=== PATIENT | female | born 1975 | race Caucasian/White ===

== ENCOUNTER → 2020-02-16 08:19 | Outpatient (BNVA) | payer OTHER, SELFPAY | PROVIDERS: PCP Internal Medicine; Visit Provider Surgery | DX: Z76.89 Persons encountering health services in other specified circumstances (principal) ==

== ENCOUNTER 2021-04-24 06:31 | Outpatient (REF) | payer OTHER, SELFPAY ==
[2021-04-24 06:43] LABS: MANUAL DIFF FLAG NO
[2021-04-24 07:21] LABS: Basophils Percent Auto 0.3 % (0-2); Eosinophils Absolute Auto 0.2 X10*3/uL (0.0-0.4); Eosinophils Percent Auto 2.2 % (0-4); Hematocrit 42.4 % (37.0-47.0); Imm Gran Abs Auto 0.04 X10*3/uL (0.00-0.03); Imm Gran Pct Auto 0.6 % (0.0-0.4); Lymphocytes Absolute Auto 2.6 X10*3/uL (1.2-4.9); Lymphocytes Percent Auto 35.1 % (20-40); Mean Corpuscular HGB Conc 30.7 g/dl (31.0-35.0); Mean Corpuscular Hemoglobin 25.6 pg (27.0-33.0); Mean Corpuscular Volume 83.6 fL (80.0-98.0); Mean Platelet Volume 10.3 fL (9.4-12.3); Monocytes Absolute Auto 0.6 X10*3/uL (0.1-1.2); Monocytes Percent Auto 8.3 % (2-11); Neutrophils Absolute Auto 3.9 x10*3/uL (2.0-8.3); Neutrophils Percent Auto 53.5 % (45-73); Platelet Count 254 X10*3/uL (160-400); Red Blood Count 5.07 X10*6/uL (4.20-5.50); Red Cell Distribution Width 15.2 % (11.0-16.0); White Blood Count 7.3 X10*3/uL (4.8-10.8)
[2021-04-24 07:53] LABS: Alanine Aminotransferase 60 U/L (0-31); Alkaline Phosphatase 124 U/L (39-117); Anion Gap 12 (12-20); Aspartate Amino Transferase 45 U/L (5-31); Bilirubin Total 0.4 mg/dL (0.0-1.0); Blood Urea Nitrogen 8 mg/dL (9-16); C Reactive Protein 3.16 mg/dL (< or = 0.50); Calcium 9.5 mg/dL (8.4-10.2); Carbon Dioxide 30 mmol/L (22-29); Chloride 101 mmol/L (96-108); Cholesterol 157 mg/dL; Estimated Glomerular Filt Rate > 60; Glucose Fasting 129 mg/dL (60-99); HDL Cholesterol 42 mg/dL; LDL Cholesterol Calculated 94 mg/dl; Potassium 4.3 mmol/L (3.3-5.1); Rheumatoid Factor < 15.0 IU/mL (<15.0); Sodium 139 mmol/L (135-145); Total Protein 7.1 g/dL (6.5-8.0); Triglycerides 109 mg/dL
[2021-04-24 07:57] LABS: Creatinine Urine 60.06 mg/dL; Microalbumin Urine < 5.0 mg/L
[2021-04-24 08:04] LABS: Erythrocyte Sedimentation Rate 33 MM/HR (0-20)
[2021-04-24 08:18] LABS: Thyroid Stimulating Hormone 1.46 uIU/mL (0.32-4.0)
[2021-04-25 13:41] LABS: Anti Nuclear Antibody Screen NEGATIVE (NEGATIVE)
[2021-04-25 15:47] LABS: Cyclic Citrullinated Peptide <16 UNITS
== END 2021-04-24 06:32 | disposition home or self-care (01) ==
LOC: HO.LAB 06:31
PROVIDERS: PCP Internal Medicine; Visit Provider Internal Medicine
DX: M79.7 Fibromyalgia (principal); E66.01 Morbid (severe) obesity due to excess calories; E11.9 Type 2 diabetes mellitus without complications
CPT/HCPCS: 36415; 80053; 80061; 82043; 84443; 85025; 85652; 86038; 86039; 86140; 86200; 86431

== ENCOUNTER 2021-04-27 08:26 | Outpatient (REF) | payer OTHER, SELFPAY ==
--- NOTE | ~2021-04-27 | MM_ITS ---
EXAMINATION: MM SCREENING DIGITAL BREAST TOMOSYNTHESIS, BILATERAL CLINICAL INFORMATION: Screening. Asymptomatic. The lifetime risk of breast cancer based on the Tyrer-Cuzick Model is 7%. COMPARISON: Mammography: 05/19/2016 (baseline) TECHNIQUE: Digital breast tomosynthesis is performed in both the craniocaudal and mediolateral oblique views along with computer-aided detection (CAD). Synthesized 2D images are generated from the tomosynthesis. Additional bilateral CC and additional bilateral MLO views are provided. FINDINGS: There are scattered areas of fibroglandular density (ACR BI-RADS breast composition Category b). The right breast parenchymal pattern is similar to prior baseline exam. Neither breast shows abnormal calcifications. The axilla and skin contours are unremarkable. Left breast has new oval nodule periareolar 8:30 o'clock position measuring approximately 1.0 x 0.6 cm with heterogeneous attenuation. Margins are generally smooth but incompletely defined. Lesion resides close to skin. Patient will be recalled for additional imaging. MM/MM tomosynthesis screening BI IMPRESSION: 1. Left: New oval heterogeneous nodule close to skin periareolar 8:30 o'clock position 10 x 6 mm. 2. Right: No mammographic evidence of malignancy. ASSESSMENT: BI-RADS 0: Incomplete - Need Additional Imaging Evaluation RECOMMENDATION: 1. Assess for dermal lesion and obtain additional views with skin marker if applicable. Otherwise Spot CC and spot LM. 2. Targeted ultrasound if warranted after review of the additional views. 3. Radiology department staff will contact the patient for additional imaging. This patient's information was entered into a reminder system with a target due date for their next mammogram.
== END 2021-04-27 08:27 | disposition home or self-care (01) ==
LOC: HO.MAMMO 08:26
PROVIDERS: PCP Internal Medicine; Visit Provider Internal Medicine
DX: Z12.31 Encounter for screening mammogram for malignant neoplasm of breast (principal)
CPT/HCPCS: 77063; 77067

== ENCOUNTER 2021-05-02 08:38 | Outpatient (REF) | payer OTHER, SELFPAY ==
--- NOTE | ~2021-05-02 | MM_ITS ---
EXAMINATION: MM DIAGNOSTIC DIGITAL BREAST TOMOSYNTHESIS, LEFT US DIAGNOSTIC ULTRASOUND BREAST, LEFT CLINICAL INFORMATION: Recall from screening for new oval nodule periareolar 8:30 left breast 10 x 6 mm with heterogeneous attenuation, incompletely defined margins. COMPARISON: Mammography: 04/27/2021, 05/19/2016 TECHNIQUE: Inspection of breast shows no dermal lesion to correspond to recent finding at screening. Digital breast tomosynthesis is performed. 2D images are generated from the tomosynthesis. The following views are obtained: Spot CC, LM. Ultrasound left breast is targeted to the periareolar breast using grayscale imaging and color Doppler without and with harmonics. FINDINGS: There are scattered areas of fibroglandular density (ACR BI-RADS breast composition Category b). The additional views confirm a oval nodule of heterogeneous attenuation approximately 9 mm in size. Margins are smooth but incompletely defined. No spiculation or associated calcification. Finding is new from prior mammography 2017. Ultrasound demonstrates a circumscribed homogeneous hyperechoic: Nodule just beneath the skin level 1:00 position 3 cm from nipple measuring 0.9 x 0.6 cm. There is no posterior acoustic enhancement or shadowing. There is some internal peripheral color flow on Doppler. Results are discussed with the patient at time of visit. The finding is suspicious for benign fat necrosis or possibly an angiomyolipoma. The lesion is new from 2017 but otherwise chronicity and stability is unknown. Patient does not recall any prior history of left breast trauma or ecchymosis. Management options discussed including short interval six-month follow-up as well as ultrasound-guided tissue sampling. Patient prefers biopsy. Results and recommendation called to medical affairs manager ([place]) for Dr. Radhames Voss on 05/02/2021. MM/MM tomosynthesis added views L IMPRESSION: New oval heterogeneous nodule anterior 11:00 left breast, suspect fat necrosis or angiomyolipoma. ASSESSMENT: BI-RADS 4: Suspicious (subcategory 4A: Low suspicion for malignancy) RECOMMENDATION: Ultrasound-guided core biopsy left breast.
== END 2021-05-02 08:39 | disposition home or self-care (01) ==
LOC: HO.MAMMO 08:38
PROVIDERS: Visit Provider Internal Medicine
DX: N63.24 Unspecified lump in the left breast, lower inner quadrant (principal); R92.8 Other abnormal and inconclusive findings on diagnostic imaging of breast
CPT/HCPCS: 76642; 77061; 77065; 99202

== ENCOUNTER 2021-05-06 07:37 | Outpatient (REF) | payer OTHER, SELFPAY ==
--- NOTE | ~2021-05-06 | US_ITS ---
PROCEDURE: US GUIDED BREAST BIOPSY, LEFT CLINICAL INFORMATION: Well-circumscribed density which on ultrasound is homogeneously hyperechoic. COMPARISON: May 02, 2021 and May 19, 2016 PROCEDURAL DETAILS: The details of the procedure, as well as the risks, benefits, and alternatives to the procedure were explained to the patient in detail and all of her questions were answered, after which written informed consent was obtained. Site and side were confirmed. Prior to the procedure, sonography revealed a homogeneously hyperechoic lesion. A time-out was performed, the lesion intended for biopsy was targeted, and the skin of the left breast was then prepped and draped in the usual sterile fashion. Using sonographic guidance, sterile technique, and 1% lidocaine without epinephrine for local anesthesia, multiple automated core biopsies were obtained through the targeted area with a 14G spring loaded Achieve core biopsy device. There was real-time confirmation of appropriate needle passage. Sampling was documented. At the completion of tissue sampling, a single open coil metallic clip was deposited at the biopsy site. There was no evidence of immediate complication. SPECIMEN: An appropriate sample was obtained. DIGITAL POST-PROCEDURE MAMMOGRAPHY: Breast density: The tissue is almost entirely fatty. BI-RADS version 5, category a. There are no new mammographic findings demonstrated. The postprocedure 2-view direct digital mammogram reveals satisfactory positioning of the biopsy clip. The patient tolerated the procedure well and, after assuring adequate hemostasis, was discharged in good condition after reviewing postbiopsy breast care instructions. Final pathology results are pending. US/US breast ndl core biopsy LT IMPRESSION: 1. No immediate complication from ultrasound-guided percutaneous biopsy left breast. 2. Ultrasound was used to localize and guide marker clip placement. 3. The 2-view direct digital postprocedure mammogram reveals satisfactory positioning of the biopsy clip. 4. Final pathology results are pending. A separate report with final recommendations will be issued once these results are made available.
--- NOTE | ~2021-05-06 | MM_ITS ---
EXAMINATION: MM DIAGNOSTIC DIGITAL BREAST TOMOSYNTHESIS, LEFT DIGITAL POST-PROCEDURE MAMMOGRAPHY: Breast density: The tissue is almost entirely fatty. BI-RADS version 5, category a. There are no new mammographic findings demonstrated. The postprocedure 2-view direct digital mammogram reveals satisfactory positioning of the biopsy clip. The patient tolerated the procedure well and, after assuring adequate hemostasis, was discharged in good condition after reviewing postbiopsy breast care instructions. Final pathology results are pending. MM/MM tomosynthesis diagnostic LT IMPRESSION: 1. No immediate complication from ultrasound-guided percutaneous biopsy left breast. 2. Ultrasound was used to localize and guide marker clip placement. 3. The 2-view direct digital postprocedure mammogram reveals satisfactory positioning of the biopsy clip. 4. Final pathology results are pending. A separate report with final recommendations will be issued once these results are made available.
[2021-05-06] MEDS: Lidocaine HCl 1 % 20 ML VIAL 10 ML SUBCUT (09:08)
== END 2021-05-06 07:38 | disposition home or self-care (01) ==
LOC: HO.MAMMO 07:37
PROVIDERS: Visit Provider Surgery
DX: R92.8 Other abnormal and inconclusive findings on diagnostic imaging of breast (principal)
CPT/HCPCS: 19083; 77061; 77065; 88305; 88341; 88342; A4648

== ENCOUNTER 2021-05-15 07:25 | Emergency (ER) | payer OTHER, SELFPAY ==
[2021-05-15 07:40] VITALS: BP 111/65; PULSE 70; RESP 18; TEMP 36.6; O2SAT 99; BMI 59.3
--- NOTE | 2021-05-15 07:58 | ED.GENADULT ---
HPI - General Adult General Chief complaint: Wound/Laceration Stated complaint: Leg abscess Time Seen by Provider: 05/15/21 07:53 Source: patient Mode of arrival: ambulatory Limitations: no limitations History of Present Illness HPI narrative: Patient comes to the emergency room complaining of an infection to the left lower extremity. Patient states that she has eczema, patient is being treated with topical triamcinolone. Patient has been scratching and now it is infected. Patient denies fever chills Related Data Home Medications Medication Instructions Recorded Confirmed albuterol sulfate 90 mcg/actuation INHALATION 04/16/21 04/16/21 aerosol inhaler (Ventolin HFA) buspirone 30 mg tablet 30 mg PO BID 04/16/21 04/16/21 clonazepam 1 mg tablet mg PO 04/16/21 04/16/21 duloxetine 60 mg capsule,delayed 120 mg PO QAM 04/16/21 04/16/21 release gabapentin 300 mg capsule mg PO 04/16/21 04/16/21 prazosin 1 mg capsule 1 mg PO BID 04/16/21 04/16/21 Previous Rx's Medication Instructions Recorded blood sugar diagnostic (FreeStyle #100 ea 04/16/21 Lite Strips) blood-glucose meter (FreeStyle #1 ea 04/16/21 Lite Meter) lancets 28 gauge (FreeStyle #100 ea 04/16/21 Lancets) metformin 500 mg tablet 500 mg PO BID 90 Days #180 tab 04/16/21 triamcinolone acetonide 0.1 % 1 appl TOPICAL DAILY 30 Days #30 g 04/16/21 topical cream cephalexin 500 mg capsule 500 mg PO BID #14 cap 05/15/21 doxycycline hyclate 100 mg capsule 100 mg PO BID #14 cap 05/15/21 Allergies Allergy/AdvReac Type Severity Reaction Status Date / Time Penicillins Allergy Mild Rash Verified 05/02/21 15:49 Shrimps Allergy Intermediate anaphylaxis Uncoded 05/02/21 15:49 Review of Systems Review of Systems: Constitutional : No Weight loss, No Fever, No Chills, No Night Sweats, No Fatigue, No Malaise ENT/Mouth : No Hearing loss, No Ear Pain, No Nasal Congestion, No Sinus Pain, No Hoarseness, No sore throat, No Rhinorrhea, No Swallowing Difficulty Eyes: No Eye Pain, No Swelling, No Redness, No Foreign Body, No Discharge, No Vision Changes Cardiovascular : No Chest Pain, No SOB, No Dyspnea on Exertion, No Orthopnea, No Edema, No Palpitations Respiratory : No Cough, No Sputum, No Wheezing, No Smoke Exposure, No Dyspnea Gastrointestinal : No Nausea, No Vomiting, No Diarrhea, No Constipation, No abdominal Pain, No Hematochezia, No Melena Genitourinary : no irregular bleeding, No Dysuria, No Urinary Frequency, No Hematuria, No Urinary Incontinence, No Urgency, No Flank Pain, No Urinary Flow Changes, No Hesitancy Musculoskeletal : No joint pain, No Myalgias, No Joint Swelling Skin : Eczema, abrasion and left lower extremity from scratching, erythematous Neuro : No Weakness, No Numbness, No Paresthesias, No Loss of Consciousness, No Dizziness, No Headache Psych : No Anxiety/Panic, No Depression, No SI/HI/AH/VH, No Social Issues, Heme/Lymph: No Bruising, No Bleeding,No Lymphadenopathy Endocrine : No Polyuria, No Polydipsia, No Temperature Intolerance [facility] Past Medical History Medical History Bilateral primary osteoarthritis of knee Eczema Fibromyalgia KEVYN (generalized anxiety disorder) Mild persistent asthma, uncomplicated Moderate recurrent major depression Morbid obesity due to excess calories MAGNOLIA on CPAP Polyarthralgia Transaminitis Type 2 diabetes mellitus, without long-term current use of insulin Surgical History History of Achilles tendon repair History of hysterectomy Family History Family History Mother Hypertension Hypothyroid Mental health disorder Father Sleep apnea Brother Substance use disorder Maternal Aunt Breast CA Maternal Aunt Skin cancer Social History Social History Housing: House Alcohol intake: never Patient Tobacco Use Status: Never used Tobacco e-Cigarette/Vaping Use: Never Used Second Hand Smoke Exposure: No service: No Current occupational status: unemployed Physical Exam ED Vital Signs: Vital Signs - 24 hr 05/15/21 07:40 Temperature 97.9 F Pulse Rate 70 Respiratory Rate 18 Blood Pressure 111/65 Pulse Oximetry 99 BMI result Body Mass Index 59.3 Const Other: Appearance: Alert. Oriented X3. No acute distress. Eyes: Pupils equal, round and reactive to light. ENT: Pharynx normal. Neck: Normal inspection. Neck supple. No lymph nodes noted. No crepitus CVS: Normal heart rate and rhythm. Pulses normal. Normal S1 and S2 Respiratory: No respiratory distress. Breath sounds normal. No Wheezing. No rales Abdomen: Soft and nontender. No rigidity. No distention. Skin: Skin warm and dry. Left lower extremity distal aspect lateral, eczema patches with respirations, erythematous, no pus drainage Extremities: No lower extremity edema. No Lacerations. No Rash Neuro: Oriented X 3. No motor deficit. No sensory deficit. Moving all extremities. No slurred speech. CN 2 through 12 grossly intact Psych: calm, cooperative, normal affect Course Course Course Narrative: I discussed with the patient she has a superimposed infection over the eczema. At this time, this time eczema her predicament not suspected Discharge Plan Discharge Clinical Impression: Cellulitis Patient Disposition: Home, Self-Care Instructions: Cellulitis (ED) Additional Instructions: Please follow-up with your primary care physician tomorrow. If you have any worsening or new symptoms, please return to the emergency room or call 911 Prescriptions: New cephalexin 500 mg capsule 500 mg PO BID Qty: 14 0RF doxycycline hyclate 100 mg capsule 100 mg PO BID Qty: 14 0RF No Action buspirone 30 mg tablet 30 mg PO BID 0RF duloxetine 60 mg capsule,delayed release(DR/EC) 120 mg PO QAM 0RF gabapentin 300 mg capsule PO 0RF prazosin 1 mg capsule 1 mg PO BID 0RF clonazepam 1 mg tablet PO 0RF albuterol sulfate [Ventolin HFA] 90 mcg/actuation HFA aerosol inhaler inhalation 0RF metformin 500 mg tablet 500 mg PO BID 90 Days Qty: 180 1RF (DME) blood-glucose meter [FreeStyle Lite Meter] Kit See Rx Instructions .Route Qty: 1 0RF Rx Instructions: As directed (DME) FreeStyle Lite Strips Strip See Rx Instructions .Route Qty: 100 3RF Rx Instructions: Use 1 test strip once a day (DME) lancets [FreeStyle Lancets] 28 gauge misc See Rx Instructions .Route Qty: 100 3RF Rx Instructions: Use 1 lancet once a day triamcinolone acetonide 0.1 % cream 1 appl topical DAILY 30 Days Qty: 30 1RF
== END 2021-05-15 08:14 | disposition home or self-care (01) ==
PROVIDERS: Emergency Provider Emergency Medicine; PCP Internal Medicine
DX: L03.116 Cellulitis of left lower limb (principal); L30.9 Dermatitis, unspecified; E11.9 Type 2 diabetes mellitus without complications; J45.909 Unspecified asthma, uncomplicated; Z79.899 Other long term (current) drug therapy
CPT/HCPCS: 99283

== ENCOUNTER → 2021-05-16 10:02 | Outpatient (BNVA) | payer OTHER, SELFPAY | PROVIDERS: PCP Internal Medicine; Referring Provider Internal Medicine; Visit Provider Physician Assistant | DX: E66.01 Morbid (severe) obesity due to excess calories (principal); Z68.43 Body mass index [BMI] 50.0-59.9, adult; E11.9 Type 2 diabetes mellitus without complications; F41.1 Generalized anxiety disorder; G47.33 Obstructive sleep apnea (adult) (pediatric); R74.01 Elevation of levels of liver transaminase levels; M79.7 Fibromyalgia; Z99.89 Dependence on other enabling machines and devices; Z71.3 Dietary counseling and surveillance | CPT/HCPCS: 99202 ==

== ENCOUNTER 2021-06-06 06:09 | Outpatient (REF) | payer OTHER, SELFPAY ==
--- NOTE | ~2021-06-06 | XR_ITS ---
EXAMINATION: XR CHEST CLINICAL INFORMATION: Elevation of liver transaminase levels COMPARISON: None TECHNIQUE: 2 views of the chest were obtained. FINDINGS: The lungs are well-expanded and clear of acute process. Heart size and pulmonary vascularity is normal. There is mild spondylosis dorsal spine. No lytic process. XR/XR chest 2V IMPRESSION: Unremarkable chest exam.
--- NOTE | 2021-06-06 06:41 | ECG_ITS ---
Test Reason : E66.01 Blood Pressure : / mmHG Vent. Rate : 065 BPM Atrial Rate : 065 BPM P-R Int : 172 ms QRS Dur : 090 ms QT Int : 370 ms P-R-T Axes : 028 -06 006 degrees QTc Int : 384 ms Normal sinus rhythm Normal ECG No previous ECGs available Referred By: Stephanie Gonzalez Electronically Signed By:MIMI BOSTON MD
[2021-06-06 08:26] LABS: Insulin 27 uU/mL (2-29); Vitamin D 25-OH Total 29.2 ng/mL (>30)
[2021-06-06 08:48] LABS: Folate 10.2 ng/mL (> or = 4.0); Vitamin B12 818 pg/mL (200-900)
[2021-06-07 12:26] LABS: PTHI 72 pg/mL (16-77)
[2021-06-11 17:01] LABS: Zinc 78 mcg/dL (60-130)
[2021-06-12 00:01] LABS: Vitamin A 28 mcg/dL (38-98)
[2021-06-12 14:11] LABS: Vitamin B1 10 nmol/L (8-30)
== END 2021-06-06 06:10 | disposition home or self-care (01) ==
LOC: HO.LAB 06:09
PROVIDERS: PCP Internal Medicine; Visit Provider Physician Assistant
DX: E11.9 Type 2 diabetes mellitus without complications (principal); E66.01 Morbid (severe) obesity due to excess calories; R74.01 Elevation of levels of liver transaminase levels
CPT/HCPCS: 36415; 71046; 82306; 82607; 82746; 83525; 83970; 84425; 84590; 84630; 93005

== ENCOUNTER 2021-06-07 13:53 | Outpatient (REF) | payer OTHER, SELFPAY ==
[2021-06-11 14:59] LABS: H Pylori Breath Test Negative (Negative)
== END 2021-06-07 13:54 | disposition home or self-care (01) ==
LOC: CF 13:53
PROVIDERS: PCP Internal Medicine; Referring Provider Internal Medicine; Visit Provider Physician Assistant
DX: E66.01 Morbid (severe) obesity due to excess calories (principal); Z68.43 Body mass index [BMI] 50.0-59.9, adult; E11.9 Type 2 diabetes mellitus without complications; R74.01 Elevation of levels of liver transaminase levels; Z71.3 Dietary counseling and surveillance
CPT/HCPCS: 36415; 83013; 99211; 99212

== ENCOUNTER 2022-05-03 08:47 | Outpatient (REF) | payer OTHER, SELFPAY ==
--- NOTE | ~2022-05-03 | MM_ITS ---
EXAMINATION: MM SCREENING DIGITAL BREAST TOMOSYNTHESIS, BILATERAL CLINICAL INFORMATION: Screening. Asymptomatic. Benign ultrasound-guided left breast biopsy 05/06/2021 (angiomyolipoma; background benign breast tissue; no malignancy identified). The lifetime risk of breast cancer based on the Tyrer-Cuzick Model is 10%. COMPARISON: Multiple prior breast imaging exams, including most recent mammography 05/06/2021. TECHNIQUE: Digital breast tomosynthesis is performed in both the craniocaudal and mediolateral oblique views along with computer-aided detection (CAD). Synthesized 2D images are generated from the tomosynthesis. Additional bilateral MLO views are provided. FINDINGS: There are scattered areas of fibroglandular density (ACR BI-RADS breast composition Category b). Breast tissue composition borders on predominantly fatty. Background stromal and fibroglandular densities are stable. No significant mass, developing density or architectural abnormality. There is a biopsy clip marker again seen overlying the periareolar 9:00 left breast. No abnormal calcifications. The axilla and skin contours are unremarkable. No significant changes. MM/MM tomosynthesis screening BI IMPRESSION: No mammographic evidence of malignancy. ASSESSMENT: BI-RADS 1: Negative RECOMMENDATION: Routine annual mammography screening. This patient's information was entered into a reminder system with a target due date for their next mammogram.
== END 2022-05-03 08:48 | disposition home or self-care (01) ==
LOC: HO.MAMMO 08:47
PROVIDERS: PCP Internal Medicine; Visit Provider Internal Medicine
DX: Z12.31 Encounter for screening mammogram for malignant neoplasm of breast (principal)
CPT/HCPCS: 77063; 77067

== ENCOUNTER 2022-07-04 15:13 | Inpatient (IN) | payer OTHER, SELFPAY ==
--- NOTE | 2022-07-04 15:35 | ED_ITS ---
HPI - General Adult General Chief complaint: General Medical Stated complaint: Legs are swollen, infection?, burning sensation Time Seen by Provider: 07/04/22 17:03 Source: patient Mode of arrival: ambulatory Limitations: no limitations History of Present Illness HPI narrative: This is a 46-year-old female history of obesity, fibromyalgia, eczema, diabetes, obstructive sleep apnea presenting to the emergency department for concerns of painful rash to groin region, abdominal folds, rash started about 6 days ago and has been progressively worsening ever. Patient reports she was seen 4 days ago at urgent care and was left on 100 mg of fluconazole day for 7 days currently on day 4 and was also prescribed nystatin powder patient tells me despite all this she has been getting worse, patient reports it is a burning rash, very uncomfortable. Also reporting lower extremity swelling. She denies fevers, chills, chest pain, shortness of breath, nausea, vomiting, abdominal pain, headache, vision changes, dizziness. Related Data Home Medications Medication Instructions Recorded Confirmed albuterol sulfate 90 mcg/actuation inhalation 04/16/21 04/14/22 aerosol inhaler (Ventolin HFA) Previous Rx's Medication Instructions Recorded blood sugar diagnostic (FreeStyle #100 ea 04/16/21 Lite Strips) blood-glucose meter (FreeStyle #1 ea 04/16/21 Lite Meter kit) lancets 28 gauge (FreeStyle #100 ea 04/16/21 Lancets) cholecalciferol (vitamin D3) 25 25 mcg PO DAILY #30 caps 06/06/21 mcg (1,000 unit) capsule albuterol sulfate 90 mcg/actuation 2 puff inhalation Q6H PRN 02/04/22 aerosol inhaler shortness of breath or wheezing #6.7 grams Ventolin HFA 90 mcg/actuation 2 puff inhalation Q6H PRN 04/14/22 aerosol inhaler (albuterol sulfate) shortness of breath or wheezing 30 days #8 grams fluticasone propionate 50 1 spray intranasal BID 30 days #16 04/14/22 mcg/actuation nasal grams spray,suspension (Flonase Allergy Relief) naproxen 500 mg tablet 500 mg PO BID PRN pain 30 days #60 04/14/22 tabs metformin 500 mg tablet 500 mg PO BID 90 days #180 tabs 06/19/22 fluconazole 100 mg tablet 100 mg PO DAILY 7 days #7 tabs 07/01/22 (Diflucan) nystatin 100,000 unit/gram topical 1 appl topical DAILY #60 grams 07/01/22 powder Allergies Allergy/AdvReac Type Severity Reaction Status Date / Time Penicillins Allergy Mild Rash Verified 07/04/22 15:39 Shrimps Allergy Intermediate anaphylaxis Uncoded 04/14/22 08:41 Review of Systems Review of Systems: Constitutional : No Weight loss, No Fever, No Chills, No Fatigue, No Malaise ENT/Mouth : No sore throat, No Rhinorrhea Eyes: No Eye Pain, No Swelling, No Redness Cardiovascular : No Chest Pain, No SOB, No Dyspnea on Exertion, No Orthopnea, + Edema, No Palpitations Respiratory : No Cough, No Sputum, No Wheezing Gastrointestinal : No Nausea, No Vomiting, No Diarrhea, No Constipation, No abdominal Pain, No Hematochezia, No Melena Genitourinary : No Dysuria, No Urinary Frequency, No Hematuria, Musculoskeletal : No joint pain, No Myalgias, No Joint Swelling Skin : No Skin Lesions, + rash Neuro : No Weakness, No Numbness, No Dizziness, No Headache Psych : No Anxiety/Panic, No Depression All other systems reviewed and are negative Yes all other systems are reviewed and are negative [facility] Past Medical History Attestation statement: The following information was validated with the patient. Source: old records reviewed and nursing notes reviewed Medical History Bilateral primary osteoarthritis of knee Eczema Fibromyalgia KEVYN (generalized anxiety disorder) Mild persistent asthma, uncomplicated Moderate recurrent major depression Morbid obesity due to excess calories MAGNOLIA on CPAP Polyarthralgia Transaminitis Type 2 diabetes mellitus, without long-term current use of insulin Surgical History History of Achilles tendon repair History of hysterectomy Family History Family History Mother Hypertension Hypothyroid Mental health disorder Father Sleep apnea Brother Substance use disorder Maternal Aunt Breast CA Maternal Aunt Skin cancer Son No problems noted. Daughter Headache Daughter Hypertension Social History Social History Housing: House Alcohol intake: never Patient Tobacco Use Status: Never used Tobacco Smoked in Last 30 Days: No e-Cigarette/Vaping Use: Never Used Second Hand Smoke Exposure: No Use of substances other than those prescribed or required for medical reasons: No Advance Directives: No Advance Directives Information Provided: Yes Patient : No service: No Current occupational status: unemployed Cognitive needs: No Hearing needs: No Vision needs: No Physical Exam ED Vital Signs: Vital Signs - 24 hr 07/04/22 15:36 07/04/22 19:57 Temperature 98 F 97.5 F Pulse Rate 97 84 Respiratory Rate 18 16 Blood Pressure 137/62 119/60 Pulse Oximetry 98 97 Oxygen Delivery Method Room Air Room Air BMI result Body Mass Index 118.4 Vital signs stable Appearance: Alert.? Oriented X3.? No acute distress.? Head: Normocephalic, atraumatic, no step-offs or deformities Eyes: Pupils equal, round and reactive to light.? ENT: Pharynx normal.? Neck: Normal inspection.? Neck supple.? CVS: Normal heart rate and rhythm.? Pulses normal.? Respiratory: No respiratory distress.? Breath sounds normal.? Abdomen: Soft and nontender.? Skin: Skin warm and dry.? Normal skin color.? Normal skin turgor.?+ rash to skin folds in lower abdomen bilateral groin. Please refer to picture below. Rash is warm, erythematous, uncomfortable to palpation. Extremities: No lower extremity edema.? No calf ttp. 5/5 strength to bilateral upper and lower extremities Back: No midline tenderness, no C-spine tenderness, full range of motion, no CVA tenderness bilaterally Neuro: Oriented X 3.? No motor deficit.? No sensory deficit. CN 2-12 intact Course Course Course Narrative: RME performed by Jayde Adamson PA-C. Patient is a 46 year old assigned female at presenting to the emergency department with a possible infection. Labs ordered. Patient placed back in the waiting room pending room availability and results. Reevaluation(s) Reevaluation #1: CBC appears to be within normal limits. Normal ESR. Chemistry with no acute electrolyte abnormalities requiring intervention. CRP markedly elevated 2.63 however this appears to be better than previous CRP is. I do not suspect this is an acute finding. Normal lactic acid. UA pending. Due to severity of suspected fungal rash have ordered fluconazole IV., also ordered ceftriaxone to cover for possible cellulitis. Time: 18:51 Reevaluation #2: Discuss this case with hospitalist who agrees that patient likely has a fungal rash and cellulitis. Will admit for IV antibiotics as well as IV fluconazole. Patient will likely benefit from being seen by infectious disease team as well. Time: 21:11 Medications Administered Discontinued Medications Generic Name Dose Route Start Last Admin Trade Name Freq PRN Reason Stop Dose Admin Ceftriaxone Sodium 1 gm/ 50 mls @ 100 mls/hr 07/04/22 17:43 07/04/22 19:21 Sodium Chloride IV 07/04/22 18:12 Infused ONCE ONE Infusion Medical Decision Making Medical Decision Making [facility] Narrative: 46-year-old female presents with rash to skin folds of abdomen, bilateral groin and also reports lower extremity swelling. This has been going on for the past 6 days. Currently on fluconazole nystatin, despite this rash worsening Physical exam significant for significant area of erythema, warmth with discrete margins. Please refer to image in physical exam portion of chart. Concerns for cellulitis with intertrigo. Unlikely necrotizing infection, [place]. Plan labs, urine, blood cultures and a lactic Differential Diagnosis Differential Diagnoses: The differential diagnosis associated with the presentation includes Concerns for cellulitis with intertrigo. Unlikely necrotizing infection, [place]. Admission/Observation Consideration of admission/observation: Escalation of care including admis stephanie/observation considered Likely Lab Data [facility] Lab Attestation statement: I reviewed the patient's lab results. 07/04/22 16:03 07/04/22 16:01 Labs: Lab Results 07/04/22 07/04/22 07/04/22 Range/Units 15:59 16:00 16:01 WBC (4.8-10.8) X10*3/uL RBC (4.20-5.50) X10*6/uL Hgb (12.0-16.0) g/dl Hct (37.0-47.0) % MCV (80.0-98.0) fL MCH (27.0-33.0) pg MCHC (31.0-35.0) g/dl RDW (11.0-16.0) % Plt Count (160-400) X10*3/uL MPV (9.4-12.3) fL Immature Gran % (Auto) (0.0-0.4) % Neut % (Auto) (45-73) % Lymph % (Auto) (20-40) % [place] % (Auto) (2-11) % Eos % (Auto) (0-4) % Baso % (Auto) (0-2) % Lymph # (Auto) (1.2-4.9) X10*3/uL [place] # (Auto) (0.1-1.2) X10*3/uL Eos # (Auto) (0.0-0.4) X10*3/uL Baso # (Auto) (0.0-0.2) X10*3/uL Abs Immat Gran (auto) (0.00-0.03) X10*3/uL Absolute Neuts (auto) (2.0-8.3) x10*3/uL Absolute Nucleated RBC (0.0-0.012) X10*3/uL Nucleated RBC % (auto) (0.0-0.2) /100WBC ESR 19 (0-20) MM/HR Sodium 143 (135-145) mmol/L Potassium 4.1 (3.3-5.1) mmol/L Chloride 105 (96-108) mmol/L Carbon Dioxide 31 H (22-29) mmol/L Anion Gap 11 L (12-20) BUN 9 (9-16) mg/dL Creatinine 0.64 (0.5-1.4) mg/dL Estim Creat Clear Calc 298.7 Estimated GFR > 60 Random Glucose 85 (60-115) mg/dL Lactic Acid 1.4 (0.5-2.0) mmol/L Calcium 9.3 (8.4-10.2) mg/dL Magnesium 1.9 (1.6-2.6) mg/dL Total Bilirubin 0.3 (0.0-1.0) mg/dL AST 28 (5-31) U/L ALT 35 H (0-31) U/L Alkaline Phosphatase 125 H (39-117) U/L Total Creatine Kinase 95 (26-140) U/L C-Reactive Protein 2.63 H (< or = 0.50) mg/dL B-Natriuretic Peptide (<100) pg/mL Total Protein 6.8 (6.5-8.0) g/dL Albumin 4.1 (3.5-5.0) g/dL 07/04/22 07/04/22 Range/Units 16:03 16:03 WBC 10.3 (4.8-10.8) X10*3/uL RBC 5.31 (4.20-5.50) X10*6/uL Hgb 13.5 (12.0-16.0) g/dl Hct 43.4 (37.0-47.0) % MCV 81.7 (80.0-98.0) fL MCH 25.4 L (27.0-33.0) pg MCHC 31.1 (31.0-35.0) g/dl RDW 15.3 (11.0-16.0) % Plt Count 252 (160-400) X10*3/uL MPV 10.9 (9.4-12.3) fL Immature Gran % (Auto) 0.4 (0.0-0.4) % Neut % (Auto) 62.9 (45-73) % Lymph % (Auto) 21.1 (20-40) % [place] % (Auto) 7.5 (2-11) % Eos % (Auto) 7.9 H (0-4) % Baso % (Auto) 0.2 (0-2) % Lymph # (Auto) 2.2 (1.2-4.9) X10*3/uL [place] # (Auto) 0.8 (0.1-1.2) X10*3/uL Eos # (Auto) 0.8 H (0.0-0.4) X10*3/uL Baso # (Auto) 0.0 (0.0-0.2) X10*3/uL Abs Immat Gran (auto) 0.04 H (0.00-0.03) X10*3/uL Absolute Neuts (auto) 6.5 (2.0-8.3) x10*3/uL Absolute Nucleated RBC 0.000 (0.0-0.012) X10*3/uL Nucleated RBC % (auto) 0.0 (0.0-0.2) /100WBC ESR (0-20) MM/HR Sodium (135-145) mmol/L Potassium (3.3-5.1) mmol/L Chloride (96-108) mmol/L Carbon Dioxide (22-29) mmol/L Anion Gap (12-20) BUN (9-16) mg/dL Creatinine (0.5-1.4) mg/dL Estim Creat Clear Calc Estimated GFR Random Glucose (60-115) mg/dL Lactic Acid (0.5-2.0) mmol/L Calcium (8.4-10.2) mg/dL Magnesium (1.6-2.6) mg/dL Total Bilirubin (0.0-1.0) mg/dL AST (5-31) U/L ALT (0-31) U/L Alkaline Phosphatase (39-117) U/L Total Creatine Kinase (26-140) U/L C-Reactive Protein (< or = 0.50) mg/dL B-Natriuretic Peptide < 10 (<100) pg/mL Total Protein (6.5-8.0) g/dL Albumin (3.5-5.0) g/dL Core Measures AMI core measures followed: Yes Measure exclusions: not indicated Critical Care Time Critical Care Time Critical Care Time: No Discharge Plan Discharge Clinical Impression: Intertrigo, Cellulitis Patient Disposition: Admitted As Inpatient Prescriptions: No Action cholecalciferol (vitamin D3) 25 mcg (1,000 unit) capsule 25 mcg PO DAILY Qty: 30 6RF metformin 500 mg tablet 500 mg PO BID 90 Days Qty: 180 1RF albuterol sulfate [Ventolin HFA] 90 mcg/actuation HFA aerosol inhaler inhalation (DME) blood-glucose meter [FreeStyle Lite Meter] Kit See Rx Instructions .Route Qty: 1 0RF Rx Instructions: As directed (DME) FreeStyle Lite Strips Strip See Rx Instructions .Route Qty: 100 3RF Rx Instructions: Use 1 test strip once a day (DME) lancets [FreeStyle Lancets] 28 gauge misc See Rx Instructions .Route Qty: 100 3RF Rx Instructions: Use 1 lancet once a day fluconazole [Diflucan] 100 mg tablet 100 mg PO DAILY 7 Days Qty: 7 0RF nystatin 100,000 unit/gram powder 1 appl topical DAILY Qty: 60 0RF albuterol sulfate 90 mcg/actuation HFA aerosol inhaler 2 puff inhalation Q6H PRN (Reason: shortness of breath or wheezing) Qty: 6.7 0RF albuterol sulfate [Ventolin HFA] 90 mcg/actuation HFA aerosol inhaler 2 puff inhalation Q6H PRN (Reason: shortness of breath or wheezing) 30 Days Qty: 8 1RF naproxen 500 mg tablet 500 mg PO BID PRN (Reason: pain) 30 Days Qty: 60 1RF fluticasone propionate [Flonase Allergy Relief] 50 mcg/actuation spray,suspension 1 spray intranasal BID 30 Days Qty: 16 0RF Rx Instructions: administer into each nostril
[2022-07-04 15:36] VITALS: BP 137/62; PULSE 97; RESP 18; TEMP 36.6; O2SAT 98; BMI 118.4
[2022-07-04 16:10] LABS: MANUAL DIFF FLAG NO
[2022-07-04 16:14] LABS: Basophils Percent Auto 0.2 % (0-2); Eosinophils Absolute Auto 0.8 X10*3/uL (0.0-0.4); Eosinophils Percent Auto 7.9 % (0-4); Hematocrit 43.4 % (37.0-47.0); Hemoglobin 13.5 g/dl (12.0-16.0); Imm Gran Abs Auto 0.04 X10*3/uL (0.00-0.03); Imm Gran Pct Auto 0.4 % (0.0-0.4); Lymphocytes Absolute Auto 2.2 X10*3/uL (1.2-4.9); Lymphocytes Percent Auto 21.1 % (20-40); Mean Corpuscular HGB Conc 31.1 g/dl (31.0-35.0); Mean Corpuscular Hemoglobin 25.4 pg (27.0-33.0); Mean Corpuscular Volume 81.7 fL (80.0-98.0); Mean Platelet Volume 10.9 fL (9.4-12.3); Monocytes Absolute Auto 0.8 X10*3/uL (0.1-1.2); Monocytes Percent Auto 7.5 % (2-11); Neutrophils Absolute Auto 6.5 x10*3/uL (2.0-8.3); Neutrophils Percent Auto 62.9 % (45-73); Platelet Count 252 X10*3/uL (160-400); Red Blood Count 5.31 X10*6/uL (4.20-5.50); Red Cell Distribution Width 15.3 % (11.0-16.0); White Blood Count 10.3 X10*3/uL (4.8-10.8)
[2022-07-04 16:21] LABS: Lactic Acid 1.4 mmol/L (0.5-2.0)
[2022-07-04 16:28] LABS: Alanine Aminotransferase 35 U/L (0-31); Albumin Level 4.1 g/dL (3.5-5.0); Alkaline Phosphatase 125 U/L (39-117); Anion Gap 11 (12-20); Aspartate Amino Transferase 28 U/L (5-31); Bilirubin Total 0.3 mg/dL (0.0-1.0); Blood Urea Nitrogen 9 mg/dL (9-16); C Reactive Protein 2.63 mg/dL (< or = 0.50); Calcium 9.3 mg/dL (8.4-10.2); Carbon Dioxide 31 mmol/L (22-29); Chloride 105 mmol/L (96-108); Creatinine Clr Calc Pharmacy 298.7; Estimated Glomerular Filt Rate > 60; Glucose Random 85 mg/dL (60-115); Magnesium 1.9 mg/dL (1.6-2.6); Potassium 4.1 mmol/L (3.3-5.1); Sodium 143 mmol/L (135-145); Total Protein 6.8 g/dL (6.5-8.0)
[2022-07-04 16:49] LABS: Erythrocyte Sedimentation Rate 19 MM/HR (0-20)
[2022-07-04] MEDS: cefTRIAXone sodium 1 GM in 0.9 % Sodium Chloride 50 ML IV (18:20)
--- NOTE | 2022-07-04 19:28 | ECG_ITS ---
Test Reason : GENERAL MEDICAL Blood Pressure : / mmHG Vent. Rate : 085 BPM Atrial Rate : 085 BPM P-R Int : 178 ms QRS Dur : 084 ms QT Int : 378 ms P-R-T Axes : 042 -02 010 degrees QTc Int : 449 ms Normal sinus rhythm Normal ECG When compared with ECG of 06-JUN-2021 06:42, QT has lengthened Referred By: Herb Feliz Electronically Signed By:Lee Haro
[2022-07-04 19:57] VITALS: BP 119/60; PULSE 84; RESP 16; TEMP 36.4; O2SAT 97
[2022-07-04 20:31] LABS: B Type Natriuretic Peptide < 10 pg/mL (<100)
[2022-07-04] MEDS: Fluconazole in NaCl,Iso-Osm 100 MG in Container,Empty 0 ML 50 MG IV (21:20)
--- NOTE | 2022-07-04 21:30 | PM.IMHP ---
History of Present Illness Date of Service: 07/04/22 Attending physician on admission: Jatinder Miller Chief Complaint: Abdominal/groin rash Pt is a 46-year-old female with a PMH significant for rru-iuapyuh-kelikmhcm diabetes type 2, osteoarthritis, MAGNOLIA on CPAP, depression/anxiety with panic attacks, and morbid obesity?who presents to the ED with?and erythematous, rash to the abdomen and groin has failed outpatient therapy. Patient states that on Thursday she suddenly developed a red rash on her abdomen and pannus, in her abdominal skin folds, and on her groin. Patient first treated rash with nystatin powder bought at local pharmacy with little relief. By Thursday rash was warm, painful, itchy, and spreading further. She then went to an urgent care and was fluconazole 1 mg q.d. for 7 days. Currently on day 4 of fluconazole and rash has continued to progressively get worse. Patient says she has been experiencing chills, but no measurable fever, however patient chronically on naproxen. Denies nausea, vomiting, abdominal pain. No chest pain/pressure, palpitations. Denies shortness of breath. Patient has chronic lower leg edema that she says has not worsened recently. Patient states rash is very pruritic, rates her pain as a 7/10, and describes it as burning in nature. In the ED patient was afebrile and hemodynamically stable. Labs were significant for no leukocytosis, C-reactive protein of 2.63, mildly elevated ALT of 35 and alk-phos of 125. Renal function normal. Electrolytes WNL. UA results pending. EKG demonstrated normal sinus rhythm with nonspecific T-wave inversions and no evidence of ST elevations or depressions. Pt was treated with ceftriaxone and fluconazole IV. Pt will be admitted to the hospital for treatment further evaluation of abdominal and groin rash that has failed outpatient therapy. Review of Systems Review of Systems: Painful, pruritic rash to abdomen and groin Chills, no fever Denies nausea, vomiting, diarrhea, abdominal pain No chest pain/pressure, palpitations Denies shortness of breath Yes all other systems are reviewed and are negative [facility] Medical History Bilateral primary osteoarthritis of knee Eczema Fibromyalgia KEVYN (generalized anxiety disorder) Mild persistent asthma, uncomplicated Moderate recurrent major depression Morbid obesity due to excess calories MAGNOLIA on CPAP Polyarthralgia Transaminitis Type 2 diabetes mellitus, without long-term current use of insulin Family History Mother Hypertension Hypothyroid Mental health disorder Father Sleep apnea Brother Substance use disorder Maternal Aunt Breast CA Maternal Aunt Skin cancer Son No problems noted. Daughter Headache Daughter Hypertension Surgical History History of Achilles tendon repair History of hysterectomy Social History Housing: House Alcohol intake: never Patient Tobacco Use Status: Never used Tobacco Smoked in Last 30 Days: No e-Cigarette/Vaping Use: Never Used Second Hand Smoke Exposure: No Use of substances other than those prescribed or required for medical reasons: No Advance Directives: No Advance Directives Information Provided: Yes Patient : No service: No Current occupational status: unemployed Cognitive needs: No Hearing needs: No Vision needs: No Meds Allergies Allergy/AdvReac Type Severity Reaction Status Date / Time Penicillins Allergy Mild Rash Verified 07/04/22 15:39 Shrimps Allergy Intermediate anaphylaxis Uncoded 04/14/22 08:41 Active Medications: Current Medications Fluconazole 100 mg/ IV (Miscellaneous Supplies) 50 mls @ 50 mls/hr IV Q24H SU Last Admin: 07/04/22 21:20 Dose: 50 mls/hr Home Medications Medication Instructions Recorded Confirmed Last Taken Type buspirone 30 mg tablet 30 mg PO BID PRN Anxiety 07/04/22 07/04/22 Unknown History metformin 500 mg tablet 500 mg PO BIDAC 07/04/22 07/04/22 07/04/22 History multivitamin 1 tab PO DAILY 07/04/22 07/04/22 07/04/22 History Physical Exam Vital Signs and Narrative: Vital Signs: Last Vital Signs Temp 97.5 F 07/04/22 19:57 Pulse 84 07/04/22 19:57 Resp 16 07/04/22 19:57 BP 119/60 07/04/22 19:57 Pulse Ox 97 07/04/22 19:57 O2 Del Method Room Air 07/04/22 19:57 BMI result Body Mass Index 118.4 Constitutional: Alert, in no acute distress. Mental Status: Oriented to person, place and time. Eyes: Pupils are equal, round, and reactive to light. Ear, Nose, and Throat: Oropharynx clear, mucous membranes moist. Ears and nose without deformities. Trachea midline. Respiratory: Clear to auscultation bilaterally. No wheezing, rales, or rhonchi. Cardiovascular: S1, S2 regular. No murmurs, rubs, or gallops. Gastrointestinal: Abdomen soft, non-tender, non-distended. Normal bowel sounds. Neurologic: Cranial nerves II-XII are grossly intact bilaterally. No focal neurological deficits. Moves all extremities spontaneously. Skin: Extensive area of erythema on on abdomen and pannus, in skin folds, on inner thighs, and groin. Erythema tender and warm to the touch with swelling, particularly to the groin. No satellite lesions noted. Non malodorous. See picture below Musculoskeletal: No cyanosis or clubbing. Extremities: Bilateral chronic edema. Psychiatric: Normal mood and affect. Results Labs 07/04/22 16:03 07/04/22 16:01 Labs: Laboratory Results - last 24 hr 07/04/22 07/04/22 07/04/22 15:59 16:00 16:01 MCV MCH MCHC RDW Plt Count MPV Immature Gran % (Auto) Neut % (Auto) Lymph % (Auto) [place] % (Auto) Eos % (Auto) Baso % (Auto) Lymph # (Auto) [place] # (Auto) Eos # (Auto) Baso # (Auto) Abs Immat Gran (auto) Absolute Neuts (auto) Absolute Nucleated RBC Nucleated RBC % (auto) ESR 19 Anion Gap 11 L Estim Creat Clear Calc 298.7 Estimated GFR > 60 Random Glucose 85 Lactic Acid 1.4 Calcium 9.3 Magnesium 1.9 Total Bilirubin 0.3 AST 28 ALT 35 H Alkaline Phosphatase 125 H Total Creatine Kinase 95 C-Reactive Protein 2.63 H B-Natriuretic Peptide Total Protein 6.8 Albumin 4.1 07/04/22 07/04/22 16:03 16:03 MCV 81.7 MCH 25.4 L MCHC 31.1 RDW 15.3 Plt Count 252 MPV 10.9 Immature Gran % (Auto) 0.4 Neut % (Auto) 62.9 Lymph % (Auto) 21.1 [place] % (Auto) 7.5 Eos % (Auto) 7.9 H Baso % (Auto) 0.2 Lymph # (Auto) 2.2 [place] # (Auto) 0.8 Eos # (Auto) 0.8 H Baso # (Auto) 0.0 Abs Immat Gran (auto) 0.04 H Absolute Neuts (auto) 6.5 Absolute Nucleated RBC 0.000 Nucleated RBC % (auto) 0.0 ESR Anion Gap Estim Creat Clear Calc Estimated GFR Random Glucose Lactic Acid Calcium Magnesium Total Bilirubin AST ALT Alkaline Phosphatase Total Creatine Kinase C-Reactive Protein B-Natriuretic Peptide < 10 Total Protein Albumin Assessment and Plan (1) Cellulitis: Status: Acute (2) Intertrigo: Status: Acute Plan Pt is a 46-year-old female with a PMH significant for vev-ixzyejw-avbqywywq diabetes type 2, osteoarthritis, MAGNOLIA on CPAP, depression/anxiety with panic attacks, and morbid obesity?who presents to the ED with?and erythematous, rash to the abdomen and groin has failed outpatient therapy. Pt will be admitted to the hospital for treatment further evaluation of abdominal and groin rash that has failed outpatient therapy. Rash on abdomen and groin Pt with extensive rash of abdomen and groin that is erythematous, tender, warm, quickly spreading, sudden onset, and with swelling Failed outpatient therapy on fluconazole and nystatin powder Cellulitis versus intertrigo versus cellulitis with superimposed intertrigo IV antibiotics: Cefazolin 1g q8h, started 07/04/2022 Clotrimazole topical cream to cover for possible superimposed intertrigo Stop fluconazole, nystatin ID consult Follow cultures Kwa-efissop-mjcamsoml diabetes Hold metformin Sliding-scale insulin Diabetic diet MAGNOLIA CPAP at night Asthma Not in acute exacerbation Continue home inhalers Depression/anxiety/panic attacks Continue buspirone Mobid obesity Encourage weight loss Full Code Attending:?Dr. Miller DVT Prophylaxis: Lovenox 40mg q12hr Pt will require a hospitalization of at least two nights for treatment of?likely cellulitis of the abdomen and groin with IV antibiotics. Time Spent With Patient Time: Total time managing care of this patient today ____ minutes. Quality Stroke Does the patient have a stroke diagnosis?: No VTE Prior VTE?: No VTE Risk Level:: Medical - moderate - high VTE Device Contraindication: Treatment Not Indicated VTE Drug Contraindication: N/A - Med Ordered
--- NOTE | 2022-07-04 21:51 | PHA.MEDREC ---
Pharmacy Consult ? Medication Reconciliation Pharmacy has completed the medication reconciliation.Spoke with patient in the ED who knew all medications
[2022-07-04 21:53] VITALS: BP 126/62; PULSE 93; RESP 19; TEMP 36.8; O2SAT 95
[2022-07-04 21:58] VITALS: BMI 54.1
[2022-07-04 22:05] LABS: Glucose, Whole Blood 91 mg/dL (60-115)
[2022-07-04] MEDS: Enoxaparin Sodium 40 MG/0.4 ML SYRINGE SUBCUT (22:50)
[2022-07-05] VITALS (7 sets, daily range): BP systolic 110–134; BP diastolic 54–80; PULSE 69–95; RESP 14–18; TEMP 36.2–37.1; O2SAT 93–96
--- NOTE | 2022-07-05 00:01 | PC.NURSE ---
Nurse to nurse report given to Danica remote medical coder. patient to be transported to room 362 by nail tech.
[2022-07-05] MEDS: Clotrimazole 1 % Cream 15 GM TUBE 1 APPL TOPICAL ×3 (01:40→19:43)
[2022-07-05] MEDS: traMADoL HCL 50 MG TABLET PO ×2 (01:48→21:35)
[2022-07-05 07:29] LABS: Glucose, Whole Blood 92 mg/dL (60-115)
[2022-07-05] MEDS: diphenhydrAMINE HCL 50 MG/ML VIAL 25 MG IVPUSH (07:29)
[2022-07-05] MEDS: Fluticasone Propionate Nasal 16 GM SPRAY 1 SPRAY NOSTRIL-B (07:30)
[2022-07-05] MEDS: Multivitamin TABLET 1 TAB PO (07:30)
[2022-07-05] MEDS: 0.9 % Sodium Chloride Flush 3 ML SYRINGE IVFLUSH ×3 (07:31→19:41)
[2022-07-05 11:03] LABS: Glucose, Whole Blood 93 mg/dL (60-115)
[2022-07-05] MEDS: Enoxaparin Sodium 40 MG/0.4 ML SYRINGE SUBCUT ×2 (11:23→21:24)
--- NOTE | 2022-07-05 11:36 | MHC.CM.PN ---
Lives with , daughter and grandchildren. No prior services or equipment, still drives. Plan is home with via . CM to follow.
--- NOTE | 2022-07-05 12:40 | P.PNIM_ITS ---
Subjective Subjective Date of Service: 07/05/22 Interval History: seen and examined this morning follow up for abdominal wall/groin cellulitis reporting itching primarily, no fever, chills Review of Systems Review of Systems: Yes all other systems are reviewed and are negative Constitutional Constitutional: Denies chills and Denies fever(s) Cardiovascular Cardiovascular: Denies chest pain, Denies palpitations and Denies dyspnea Respiratory Respiratory: Denies cough and Denies dyspnea Endocrine Endocrine: Denies palpitations Physical Exam Vital Signs: Vital Signs: Last Vital Signs Temp 97.9 F 07/05/22 07:22 Pulse 69 07/05/22 07:22 Resp 18 07/05/22 07:22 BP 134/80 07/05/22 07:22 Pulse Ox 95 07/05/22 07:22 O2 Del Method Room Air 07/05/22 07:22 BMI result Body Mass Index 54.1 Const: General: cooperative, comfortable, alert and awake Nutritional Appearance: obese Orientation/consciousness: patient oriented x3 Resp: Effort & Inspection: normal respiratory effort and able to speak in complete sentences Cardio: Rate: regular rate Heart sounds: S1 normal heart sound present and S2 normal heart sound present GI: Inspection: No distended, Yes Abdominal panniculus present and Yes obesity Palpation (GI): Soft to palpation and nontender Skin: Other: erythema under pannus b/l groin no open wounds, drainage Neuro: General: patient oriented x3, moves all extremities and CN's II-XI intact bilaterally Extrem: General: Yes no pedal edema Objective Data Active Medications Acetaminophen (Acetaminophen 325 Mg Tablet) 650 mg PO Q6H PRN PRN Reason: Pain, Mild (Pain Scale 1-3) Albuterol Sulfate (Albuterol Sulfate 90 Mcg 8 Gm Inhaler) 2 puff INHALE Q6H PRN PRN Reason: shortness of breath or wheezing Buspirone HCl (Buspirone Hcl 10 Mg Tablet) 30 mg PO BID PRN PRN Reason: Anxiety Clotrimazole (Clotrimazole 1 % Cream 15 Gm Tube) 1 appl TOPICAL BID [facility]; Protocol Last Admin: 07/05/22 07:30 Dose: 1 appl Documented By: AVE Diphenhydramine HCl (Diphenhydramine Hcl 25 Mg Capsule) 25 mg PO Q6H PRN PRN Reason: Itching Docusate Sodium (Docusate Sodium 100 Mg Capsule) 100 mg PO DAILY PRN PRN Reason: Constipation Enoxaparin Sodium (Enoxaparin Sodium 40 Mg/0.4 Ml Syringe) 40 mg SUBCUT Q12H [facility] Last Admin: 07/05/22 11:23 Dose: 40 mg Documented By: AVE Fluticasone Propionate (Fluticasone Propionate Nasal 16 Gm [place]) 1 spray NOSTRIL-B BID [facility] Last Admin: 07/05/22 07:30 Dose: 1 spray Documented By: AVE Glucose (Glucose Gel 15 Gm Gel..Gram.) 15 gm PO Q15M PRN; Protocol PRN Reason: per Hypoglycemia Standing Ord. Cefazolin Sodium 1 gm/ Sodium (Chloride) 50 mls @ 100 mls/hr IV Q8H [facility] Last Infusion: 07/05/22 07:59 Dose: 0 mls/hr Documented By: AVE Dextrose (D10) 250 mls @ 750 mls/hr IV Q15M PRN; Protocol PRN Reason: per Hypoglycemia Standing Ord. Insulin Human Lispro (Insulin Lispro 100 Unit/Ml 3 Ml Vial) 0 unit SUBCUT QIDACHS [facility]; Protocol Last Admin: 07/05/22 07:31 Dose: Not Given Documented By: AVE Non-Admin Reason: No Insulin Coverage Multivitamins/Vitamin C (Multivitamin Tablet) 1 tab PO DAILY [facility] Last Admin: 07/05/22 07:30 Dose: 1 tab Documented By: AVE Ondansetron HCl (Ondansetron Hcl 4 Mg/2 Ml Vial) 4 mg IVPUSH Q8H PRN PRN Reason: Nausea and Vomiting Pharmacy Consult (Consult Rx Perform Med Rec) 1 each MISCELLANE ONCE PRN PRN Reason: Consult order Sodium Chloride (0.9 % Sodium Chloride Flush 3 Ml Syringe) 3 ml IVFLUSH QSHIFT [facility] Last Admin: 07/05/22 07:31 Dose: 3 ml Documented By: AVE Tramadol HCl (Tramadol Hcl 50 Mg Tablet) 50 mg PO Q6H PRN PRN Reason: Pain, Moderate(Pain Scale 4-6) Last Admin: 07/05/22 01:48 Dose: 50 mg Documented By: SHELLY Labs 07/04/22 16:03 07/04/22 16:01 Labs: Laboratory Results - last 24 hr 07/04/22 07/04/22 07/04/22 15:59 16:00 16:01 MCV MCH MCHC RDW Plt Count MPV Immature Gran % (Auto) Neut % (Auto) Lymph % (Auto) [place] % (Auto) Eos % (Auto) Baso % (Auto) Lymph # (Auto) [place] # (Auto) Eos # (Auto) Baso # (Auto) Abs Immat Gran (auto) Absolute Neuts (auto) Absolute Nucleated RBC Nucleated RBC % (auto) ESR 19 Anion Gap 11 L Estim Creat Clear Calc 298.7 Estimated GFR > 60 POC Glucose Random Glucose 85 Lactic Acid 1.4 Calcium 9.3 Magnesium 1.9 Total Bilirubin 0.3 AST 28 ALT 35 H Alkaline Phosphatase 125 H Total Creatine Kinase 95 C-Reactive Protein 2.63 H B-Natriuretic Peptide Total Protein 6.8 Albumin 4.1 07/04/22 07/04/22 07/04/22 16:03 16:03 22:01 MCV 81.7 MCH 25.4 L MCHC 31.1 RDW 15.3 Plt Count 252 MPV 10.9 Immature Gran % (Auto) 0.4 Neut % (Auto) 62.9 Lymph % (Auto) 21.1 [place] % (Auto) 7.5 Eos % (Auto) 7.9 H Baso % (Auto) 0.2 Lymph # (Auto) 2.2 [place] # (Auto) 0.8 Eos # (Auto) 0.8 H Baso # (Auto) 0.0 Abs Immat Gran (auto) 0.04 H Absolute Neuts (auto) 6.5 Absolute Nucleated RBC 0.000 Nucleated RBC % (auto) 0.0 ESR Anion Gap Estim Creat Clear Calc Estimated GFR POC Glucose 91 Random Glucose Lactic Acid Calcium Magnesium Total Bilirubin AST ALT Alkaline Phosphatase Total Creatine Kinase C-Reactive Protein B-Natriuretic Peptide < 10 Total Protein Albumin 07/05/22 07/05/22 07:24 10:59 MCV MCH MCHC RDW Plt Count MPV Immature Gran % (Auto) Neut % (Auto) Lymph % (Auto) [place] % (Auto) Eos % (Auto) Baso % (Auto) Lymph # (Auto) [place] # (Auto) Eos # (Auto) Baso # (Auto) Abs Immat Gran (auto) Absolute Neuts (auto) Absolute Nucleated RBC Nucleated RBC % (auto) ESR Anion Gap Estim Creat Clear Calc Estimated GFR POC Glucose 92 93 Random Glucose Lactic Acid Calcium Magnesium Total Bilirubin AST ALT Alkaline Phosphatase Total Creatine Kinase C-Reactive Protein B-Natriuretic Peptide Total Protein Albumin Assessment and Plan (1) Cellulitis: Status: Acute (2) Intertrigo: Status: Acute Plan Pt is a 46-year-old female with a PMH significant for [id number]-[id number] diabetes type 2, osteoarthritis, MAGNOLIA on CPAP, depression/anxiety with panic a ttacks, and morbid obesity?who presents to the ED with?and erythematous, rash to the abdomen and groin has failed outpatient therapy. Pt will be admitted to the hospital for treatment further evaluation of abdominal and groin rash that has failed outpatient therapy. Intertrigo and cellulitis of abdomen/groin related to diabetes Pt with extensive rash of abdomen and groin. Failed outpatient therapy on fluconazole and nystatin powder No evidence of sepsis continue IV Cefazolin started 07/04/2022 Clotrimazole topical cream Stop fluconazole, nystatin ID consult Blood cultures pending Jgd-[id number]-zxzrisppn diabetes Hold metformin Sliding-scale insulin Diabetic diet MAGNOLIA CPAP at night Asthma Not in acute exacerbation Continue home inhalers Mood Continue buspirone Mobid obesity BMI 54.1 weight loss encouraged Full Code Attending:?Dr. Guerrero DVT Prophylaxis: Lovenox Requires ongoing inpatient hospitalization for management of cellulitis of the abdomen and groin with IV antibiotics and specialist consultation Time Spent With Patient Time: Total time managing care of this patient today ____ minutes. Quality Stroke Does the patient have a stroke diagnosis?: No VTE Prior VTE?: No VTE Risk Level:: Medical - moderate - high VTE Device Contraindication: Treatment Not Indicated VTE Drug Contraindication: N/A - Med Ordered
--- NOTE | 2022-07-05 12:44 | PC.NURSE ---
Nani Gonzalez made aware via tiger text pt c/o itching on hands and upper legs, IV Benadryl given this AM as 1x dose with poor effect. PO Benadryl ordered per PA.
[2022-07-05] MEDS: diphenhydrAMINE HCL 25 MG CAPSULE PO ×2 (12:50→19:41)
[2022-07-05 16:17] LABS: Glucose, Whole Blood 97 mg/dL (60-115)
[2022-07-05] MEDS: vancomycin HCL 1,250 MG in 0.9 % Sodium Chloride 250 ML 166.67 MG IV (17:32)
[2022-07-05 20:47] LABS: Glucose, Whole Blood 156 mg/dL (60-115)
--- NOTE | 2022-07-05 23:05 | W.PM.IDCN ---
History of Present Illness Data of Consult Service Date: 07/05/22 Requesting physician: Neal Newsome Primary Care Provider: Lise Voss MD HPI Reason for consult: rash perineal area She presents with chills and discomfort under abdominal fold. She has high BMI and notes similar rash in summer. She has had symptoms for six days and started with po Diflucan four days ago and no better. She said it was starting before she was in her own cleaned hot tub with grandchildren age 4 and six. She had also used antifungal powder. Blood culture 1/2 gram positive cocci. Review of Systems Review of Systems: Yes all other systems are reviewed and are negative PMFSH Past Medical History Medical History Bilateral primary osteoarthritis of knee Eczema Fibromyalgia KEVYN (generalized anxiety disorder) Mild persistent asthma, uncomplicated Moderate recurrent major depression Morbid obesity due to excess calories MAGNOLIA on CPAP Polyarthralgia Transaminitis Type 2 diabetes mellitus, without long-term current use of insulin Family History Family History Mother Hypertension Hypothyroid Mental health disorder Father Sleep apnea Brother Substance use disorder Maternal Aunt Breast CA Maternal Aunt Skin cancer Son No problems noted. Daughter Headache Daughter Hypertension Family history: reviewed and not pertinent Surgical History Surgical History History of Achilles tendon repair History of hysterectomy Social History Social History Household Members: Spouse and Family Housing: House Do you presently have visiting nurse or other home services: No Alcohol intake: never Patient Tobacco Use Status: Never used Tobacco Smoked in Last 30 Days: No e-Cigarette/Vaping Use: Never Used Patient Interested in Nicotine Replacement: No Patient Given Instructions on How to Stop Smoking: No Second Hand Smoke Exposure: No Use of substances other than those prescribed or required for medical reasons: No Currently Displaying Signs/Symptoms of Drug Intoxication Withdrawal: No Any prior treatment program specific to substance use: No Have you been hit, kicked, punched, or otherwise hurt by someone within the past year? If so, by whom?: No Do you feel safe in your current relationship?: Yes Is there a partner from a previous relationship who is making you feel unsafe now?: No Are you made to feel afraid or neglected: No Advance Directives: No Advance Directives Information Provided: Yes Do you have thoughts of harming others: None Do you have a plan to hurt others: No Plan Recently lost weight without trying: No Eating poorly because of decreased appetite: No Nutrition Risks: No Nutritional Risk Patient : No : No Poor oral hygiene: No service: No Current occupational status: unemployed Cognitive needs: No Hearing needs: No Vision needs: No Meds Allergies Allergy/AdvReac Type Severity Reaction Status Date / Time Penicillins Allergy Mild Rash Verified 07/04/22 15:39 Shrimps Allergy Intermediate anaphylaxis Uncoded 04/14/22 08:41 Active Medications: Current Medications Acetaminophen (Acetaminophen 325 Mg Tablet) 650 mg PO Q6H PRN PRN Reason: Pain, Mild (Pain Scale 1-3) Albuterol Sulfate (Albuterol Sulfate 90 Mcg 8 Gm Inhaler) 2 puff INHALE Q6H PRN PRN Reason: shortness of breath or wheezing Buspirone HCl (Buspirone Hcl 10 Mg Tablet) 30 mg PO BID PRN PRN Reason: Anxiety Clotrimazole (Clotrimazole 1 % Cream 15 Gm Tube) 1 appl TOPICAL BID [facility]; Protocol Last Admin: 07/05/22 19:43 Dose: 1 appl Diphenhydramine HCl (Diphenhydramine Hcl 25 Mg Capsule) 25 mg PO Q6H PRN PRN Reason: Itching Last Admin: 07/05/22 19:41 Dose: 25 mg Docusate Sodium (Docusate Sodium 100 Mg Capsule) 100 mg PO DAILY PRN PRN Reason: Constipation Enoxaparin Sodium (Enoxaparin Sodium 40 Mg/0.4 Ml Syringe) 40 mg SUBCUT Q12H [facility] Last Admin: 07/05/22 21:24 Dose: 40 mg Fluticasone Propionate (Fluticasone Propionate Nasal 16 Gm [place]) 1 spray NOSTRIL-B BID [facility] Last Admin: 07/05/22 19:44 Dose: Not Given Glucose (Glucose Gel 15 Gm Gel..Gram.) 15 gm PO Q15M PRN; Protocol PRN Reason: per Hypoglycemia Standing Ord. Cefazolin Sodium 1 gm/ Sodium (Chloride) 50 mls @ 100 mls/hr IV Q8H [facility] Last Infusion: 07/05/22 17:31 Dose: Infused Dextrose (D10) 250 mls @ 750 mls/hr IV Q15M PRN; Protocol PRN Reason: per Hypoglycemia Standing Ord. Insulin Human Lispro (Insulin Lispro 100 Unit/Ml 3 Ml Vial) 0 unit SUBCUT QIDACHS [facility]; Protocol Last Admin: 07/05/22 21:23 Dose: Not Given Multivitamins/Vitamin C (Multivitamin Tablet) 1 tab PO DAILY [facility] Last Admin: 07/05/22 07:30 Dose: 1 tab Ondansetron HCl (Ondansetron Hcl 4 Mg/2 Ml Vial) 4 mg IVPUSH Q8H PRN PRN Reason: Nausea and Vomiting Pharmacy Consult (Consult Rx Perform Med Rec) 1 each MISCELLANE ONCE PRN PRN Reason: Consult order Sodium Chloride (0.9 % Sodium Chloride Flush 3 Ml Syringe) 3 ml IVFLUSH QSHIFT [facility] Last Admin: 07/05/22 19:41 Dose: 3 ml Tramadol HCl (Tramadol Hcl 50 Mg Tablet) 50 mg PO Q6H PRN PRN Reason: Pain, Moderate(Pain Scale 4-6) Last Admin: 07/05/22 21:35 Dose: 50 mg Home Medications Medication Instructions Recorded Confirmed Last Taken Type buspirone 30 mg tablet 30 mg PO BID PRN Anxiety 07/04/22 07/04/22 Unknown History metformin 500 mg tablet 500 mg PO BIDAC 07/04/22 07/04/22 07/04/22 History multivitamin 1 tab PO DAILY 07/04/22 07/04/22 07/04/22 History Physical Exam Vital Signs: Vital Signs: Last Vital Signs Temp 98.8 F 07/05/22 20:35 Pulse 95 07/05/22 20:35 Resp 18 07/05/22 20:35 BP 121/63 07/05/22 20:35 Pulse Ox 96 07/05/22 20:35 O2 Del Method Room Air 07/05/22 20:35 BMI result Body Mass Index 54.1 Const: General: cooperative HEENT: Head: Yes normal to inspection Face and sinus: Yes normal facial exam Mouth: Normal oral and palatal mucosa present Teeth and gingiva: dentition normal Eyes: General: appearance normal, both eyes and all related structures Pupils: Equal, round and reactive pupils present Resp: Effort & Inspection: normal respiratory effort Cardio: Rate: regular rate Rhythm: regular rhythm GI: Other: very high BMI with reddened moisture in folds below abdomen extending to upper legs Palpation (GI): Soft to palpation and nontender : General: Yes no CVA tenderness Back/Spine/Pelvis: Back: no CVA tenderness Skin: General skin exam: no rashes or lesions noted Neuro: General: moves all extremities Cranial nerves: Yes Equal, round and reactive pupils present Extrem: General: Yes normal to inspection Psych: Appearance: grossly normal Results Labs 07/04/22 16:03 07/04/22 16:01 Microbiology Microbiology Results: Microbiology 07/04/22 16:00 Blood - Venous Blood Culture - Preliminary No growth after 24 hours. 07/04/22 16:01 Blood - Venous Blood Culture - Preliminary Prelim: GPC Gram Stain only Assessment and Plan (1) Intertrigo: Status: Acute There is no toxicity with no fever and no leukocytosis. She has possible fungus or hot tub folliculitis (likely Pseudomonas). I am not sure yet if blood culture contaminant or not. Plan Stop Kefzol tomorrow if blood culture coagulase negative staph for example Use 5% acetic acid (vinegar) for 20 three times a day to souleymane area. Consider also sulfadiazine cream bid or even hydrocortisone if not working. Time Spent With Patient Time: Total time managing care of this patient today ____ minutes.
[2022-07-06] MEDS: Acetaminophen 325 MG TABLET 650 MG PO ×3 (00:52→21:52)
[2022-07-06 04:00] VITALS: BP 132/72; PULSE 77; RESP 16; TEMP 36.2; O2SAT 93
[2022-07-06 06:15] VITALS: PULSE 80; O2SAT 94
[2022-07-06 07:15] VITALS: BP 135/84; PULSE 77; RESP 18; TEMP 36.9; O2SAT 92
[2022-07-06 07:25] LABS: Glucose, Whole Blood 114 mg/dL (60-115)
[2022-07-06] MEDS: Multivitamin TABLET 1 TAB PO (07:37)
[2022-07-06] MEDS: 0.9 % Sodium Chloride Flush 3 ML SYRINGE IVFLUSH ×3 (07:37→20:29)
[2022-07-06] MEDS: Fluticasone Propionate Nasal 16 GM SPRAY 1 SPRAY NOSTRIL-B (07:38)
[2022-07-06] MEDS: Clotrimazole 1 % Cream 15 GM TUBE 1 APPL TOPICAL ×2 (07:39→20:28)
[2022-07-06] MEDS: Albuterol Sulfate 90 MCG 8 GM INHALER 2 PUFF INHALE ×2 (08:36→22:03)
[2022-07-06] MEDS: Nystatin Powder 15 GM BOTTLE 1 APPL TOPICAL ×3 (08:56→20:27)
[2022-07-06] MEDS: Enoxaparin Sodium 40 MG/0.4 ML SYRINGE SUBCUT ×2 (08:56→21:47)
--- NOTE | 2022-07-06 11:13 | P.PNIM_ITS ---
Subjective Subjective Date of Service: 07/06/22 Interval History: seen and examined this morning follow up for groin cellulitis/intertrigo feeling less painful this morning denies fever or chills Review of Systems Review of Systems: Yes all other systems are reviewed and are negative Constitutional Constitutional: Denies chills and Denies fever(s) Cardiovascular Cardiovascular: Denies chest pain, Denies palpitations and Denies dyspnea Respiratory Respiratory: Denies cough and Denies dyspnea Gastrointestinal Gastrointestinal: Denies abdominal pain, Denies nausea and Denies vomiting Endocrine Endocrine: Denies palpitations Physical Exam 2 Vital Signs: Vital Signs: Last Vital Signs Temp 98.4 F 07/06/22 07:15 Pulse 77 07/06/22 07:15 Resp 18 07/06/22 07:15 BP 135/84 07/06/22 07:15 Pulse Ox 92 07/06/22 07:15 O2 Del Method Room Air 07/06/22 07:15 BMI result Body Mass Index 54.1 Const: General: cooperative, comfortable, alert and awake Nutritional Appearance: obese Orientation/consciousness: patient oriented x3 Resp: Other: few scattered wheezes Effort & Inspection: normal respiratory effort, able to speak in complete sentences, no respiratory distress and no use of accessory muscles Cardio: Rate: regular rate Heart sounds: S1 normal heart sound present and S2 normal heart sound present GI: Inspection: No distended, Yes Abdominal panniculus present and Yes obesity Palpation (GI): Soft to palpation and nontender Skin: Other: erythema under pannus b/l groin no open wounds or drainage noted Neuro: General: patient oriented x3, moves all extremities and CN's II-XI intact bilaterally Extrem: General: Yes no pedal edema Objective Data Active Medications Acetaminophen (Acetaminophen 325 Mg Tablet) 650 mg PO Q6H PRN PRN Reason: Pain, Mild (Pain Scale 1-3) Last Admin: 07/06/22 00:52 Dose: 650 mg Documented By: KATHIA Albuterol Sulfate (Albuterol Sulfate 90 Mcg 8 Gm Inhaler) 2 puff INHALE Q6H PRN PRN Reason: shortness of breath or wheezing Last Admin: 07/06/22 08:36 Dose: 2 puff Documented By: AVE Albuterol Sulfate (Albuterol Sulfate (0.042%) 1.25 Mg/3 Ml Vial.Neb) 1.25 mg INHALE RQ6H PRN PRN Reason: shorntess of breath Buspirone HCl (Buspirone Hcl 10 Mg Tablet) 30 mg PO BID PRN PRN Reason: Anxiety Clotrimazole (Clotrimazole 1 % Cream 15 Gm Tube) 1 appl TOPICAL TID [facility]; [facility] Last Admin: 07/06/22 07:39 Dose: 1 appl Documented By: AVE Diphenhydramine HCl (Diphenhydramine Hcl 25 Mg Capsule) 25 mg PO Q6H PRN PRN Reason: Itching Last Admin: 07/05/22 19:41 Dose: 25 mg Documented By: CASTILMindi Docusate Sodium (Docusate Sodium 100 Mg Capsule) 100 mg PO DAILY PRN PRN Reason: Constipation Enoxaparin Sodium (Enoxaparin Sodium 40 Mg/0.4 Ml Syringe) 40 mg SUBCUT Q12H [facility] Last Admin: 07/06/22 08:56 Dose: 40 mg Documented By: AVE Fluticasone Propionate (Fluticasone Propionate Nasal 16 Gm [place]) 1 spray NOSTRIL-B BID [facility] Last Admin: 07/06/22 07:38 Dose: 1 spray Documented By: AVE Glucose (Glucose Gel 15 Gm Gel..Gram.) 15 gm PO Q15M PRN; Protocol PRN Reason: per Hypoglycemia Standing Ord. Cefazolin Sodium 1 gm/ Sodium (Chloride) 50 mls @ 100 mls/hr IV Q8H [facility] Last Infusion: 07/06/22 08:23 Dose: 0 mls/hr Documented By: AVE Dextrose (D10) 250 mls @ 750 mls/hr IV Q15M PRN; Protocol PRN Reason: per Hypoglycemia Standing Ord. Insulin Human Lispro (Insulin Lispro 100 Unit/Ml 3 Ml Vial) 0 unit SUBCUT QIDACHS [facility]; Protocol Last Admin: 07/06/22 07:36 Dose: Not Given Documented By: AVE Non-Admin Reason: No Insulin Coverage Multivitamins/Vitamin C (Multivitamin Tablet) 1 tab PO DAILY [facility] Last Admin: 07/06/22 07:37 Dose: 1 tab Documented By: AVE Nystatin (Nystatin Powder 15 Gm Bottle) 1 appl TOPICAL TID [facility]; Protocol Last Admin: 07/06/22 08:56 Dose: 1 appl Documented By: AVE Ondansetron HCl (Ondansetron Hcl 4 Mg/2 Ml Vial) 4 mg IVPUSH Q8H PRN PRN Reason: Nausea and Vomiting Pharmacy Consult (Consult Rx Perform Med Rec) 1 each MISCELLANE ONCE PRN PRN Reason: Consult order Sodium Chloride (0.9 % Sodium Chloride Flush 3 Ml Syringe) 3 ml IVFLUSH QSHIFT [facility] Last Admin: 07/06/22 07:37 Dose: 3 ml Documented By: AVE Tramadol HCl (Tramadol Hcl 50 Mg Tablet) 50 mg PO Q6H PRN PRN Reason: Pain, Moderate(Pain Scale 4-6) Last Admin: 07/05/22 21:35 Dose: 50 mg Documented By: RUTH ANNILMindi Labs 07/04/22 16:03 07/04/22 16:01 Labs: Laboratory Results - last 24 hr 07/05/22 07/05/22 07/06/22 16:05 20:41 07:18 POC Glucose 97 156 H 114 Microbiology Microbiology Results: Microbiology 07/04/22 16:00 Blood Culture - Preliminary Blood - Venous No growth after 24 hours. 07/04/22 16:01 Blood Culture - Preliminary Blood - Venous Prelim: GPC Gram Stain only Assessment and Plan (1) Intertrigo: Status: Acute Plan Pt is a 46-year-old female with a PMH significant for umh-oqyzltj-mochkkvoc diabetes type 2, osteoarthritis, MAGNOLIA on CPAP, depression/anxiety with panic attacks, and morbid obesity?who presents to the ED with?and erythematous, rash to the abdomen and groin has failed outpatient therapy. Pt will be admitted to the hospital for treatment further evaluation of abdominal and groin rash that has failed outpatient therapy. Intertrigo and cellulitis of abdomen/groin related to diabetes Pt with extensive rash of abdomen and groin. Failed outpatient therapy on fluconazole and nystatin powder No evidence of sepsis continue IV Cefazolin started 07/04/2022 Clotrimazole topical cream Resume nystatin 1/2 blood cultures growing GPC, probable contaminate. received one dose empiric vanco. follow final blood culture results seen by ID - can stop abx if blood cultures coag negative staph. consider sulfadiazine or hydrocortisone if no improvement with current therapy Fof-xgjghrc-ztfyakzxp diabetes Hold metformin Sliding-scale insulin Diabetic diet MAGNOLIA CPAP at night Asthma Not in acute exacerbation Continue home inhalers Mood Continue buspirone Mobid obesity BMI 54.1 weight loss encouraged Full Code Attending:?Dr. Gaitan DVT Prophylaxis: Lovenox Requires ongoing inpatient hospitalization for management of cellulitis of the abdomen and groin with IV antibiotics and specialist consultation Time Spent With Patient Time: Total time managing care of this patient today ____ minutes. Quality Stroke Does the patient have a stroke diagnosis?: No VTE Prior VTE?: No VTE Risk Level:: Medical - moderate - high VTE Device Contraindication: Treatment Not Indicated VTE Drug Contraindication: N/A - Med Ordered
[2022-07-06 11:16] LABS: Glucose, Whole Blood 97 mg/dL (60-115)
[2022-07-06 15:05] VITALS: BP 106/53; PULSE 81; RESP 18; TEMP 36.2; O2SAT 96
[2022-07-06 16:31] LABS: Glucose, Whole Blood 98 mg/dL (60-115)
[2022-07-06] MEDS: traMADoL HCL 50 MG TABLET PO (17:12)
[2022-07-06] MEDS: diphenhydrAMINE HCL 25 MG CAPSULE PO ×2 (18:24→23:55)
--- NOTE | 2022-07-06 18:29 | PC.NURSE ---
JÚNIOR Gonzalez made aware via tiger text at 08 of pt Wheezing LS throughout o2 95% on RA (pt dose not appear SOB at this time RR 18-20), pt stating its harder to breath than yesterday , pt o2 95% on room air, denies any throat swelling, tongue does not appear swollen. Pt given albuterol MDI with good effect, Pt states I feels better within 10 minutes of medication administration.
[2022-07-06 19:18] VITALS: BP 122/65; PULSE 88; RESP 17; TEMP 36.5; O2SAT 95
[2022-07-06 20:52] LABS: Glucose, Whole Blood 107 mg/dL (60-115)
[2022-07-06 22:03] VITALS: RESP 17
[2022-07-07 03:59] VITALS: BP 114/59; PULSE 69; RESP 18; TEMP 36.1; O2SAT 95
[2022-07-07 04:26] VITALS: RESP 18
[2022-07-07 07:19] VITALS: BP 135/63; PULSE 68; RESP 20; TEMP 36.7; O2SAT 95
[2022-07-07 07:25] VITALS: BP 114/59; PULSE 85; RESP 20; TEMP 37.2; O2SAT 95
[2022-07-07] MEDS: Fluticasone Propionate Nasal 16 GM SPRAY 1 SPRAY NOSTRIL-B (07:35)
[2022-07-07] MEDS: Multivitamin TABLET 1 TAB PO (07:35)
[2022-07-07] MEDS: 0.9 % Sodium Chloride Flush 3 ML SYRINGE IVFLUSH (07:36)
[2022-07-07 07:46] LABS: Glucose, Whole Blood 101 mg/dL (60-115)
[2022-07-07] MEDS: Nystatin Powder 15 GM BOTTLE 1 APPL TOPICAL (08:58)
[2022-07-07] MEDS: Clotrimazole 1 % Cream 15 GM TUBE 1 APPL TOPICAL (08:58)
[2022-07-07 10:56] LABS: Glucose, Whole Blood 96 mg/dL (60-115)
[2022-07-07] MEDS: Enoxaparin Sodium 40 MG/0.4 ML SYRINGE SUBCUT (11:07)
--- NOTE | 2022-07-07 13:37 | PM.DS ---
DS: Providers Provider Date of Service: 07/07/22 Date of admission: 07/04/22 21:41 Primary care physician: Lise Voss MD Consults: 07/04/22 21:35 Consult to Infectious Diseases Routine Consulting Provider: [facility] [place] Infectious Disease Reason for consultation: Abdominal/groin cellulitis ?fungal infection DS: Diagnosis Discharge Diagnosis (1) Intertrigo: Status: Acute DS: Summary Hospital Course Hospital Course: HP as per admitting provider Pt is a 46-year-old female with a PMH significant for [id number] diabetes type 2, osteoarthritis, MAGNOLIA on CPAP, depression/anxiety with panic attacks, and morbid obesity?who presents to the ED with?and erythematous, rash to the abdomen and groin has failed outpatient therapy.? Patient states that on Thursday she suddenly developed a red rash on her abdomen and pannus, in her abdominal skin folds, and on her groin.? Patient first treated rash with nystatin powder bought at local pharmacy with little relief. By Thursday rash was warm, painful, itchy, and spreading further. She then went to an urgent care and was fluconazole 1 mg q.d. for 7 days.? Currently on day 4 of fluconazole and rash has continued to progressively get worse.? Patient says she has been experiencing chills, but no measurable fever, however patient chronically on naproxen.? Denies nausea, vomiting, abdominal pain.? No chest pain/pressure, palpitations.? Denies shortness of breath.? Patient has chronic lower leg edema that she says has not worsened recently.? Patient states rash is very pruritic, rates her pain as a 7/10, and describes it as burning in nature. In the ED patient was afebrile and hemodynamically stable. Labs were significant for no leukocytosis, C-reactive protein of 2.63, mildly elevated ALT of 35 and alk-phos of 125.? Renal function normal.? Electrolytes WNL. UA results pending. EKG demonstrated normal sinus rhythm with nonspecific T-wave inversions and no evidence of ST elevations or depressions. Pt was treated with ceftriaxone and fluconazole IV.? Pt will be admitted to the hospital for treatment further evaluation of abdominal and groin rash that has failed outpatient therapy . Intertrigo and cellulitis of abdomen/groin related to diabetes Pt with extensive rash of abdomen and groin. Failed outpatient therapy on fluconazole and nystatin powder No evidence of sepsis Clotrimazole topical cream and nystatin powder, continue for 7 days along with diflucan neg blood cx Jnd-kfromox-nphlzioml diabetes continue home medications MAGNOLIA CPAP at night Asthma Not in acute exacerbation Continue home inhalers Mood Continue buspirone Mobid obesity BMI 54.1 weight loss encouraged Time Spent with Patient Time attestation: Total time managing care of this patient today ____ minutes. Discharge coordination time: Greater than 30 minutes Quality: Safe Use of Opioids Does Pt have an Active Cancer Diagnosis on the Problem List?: No Quality: Stroke Does the patient have a stroke diagnosis?: No Physical Exam Vital Signs: Vital Signs: Last Vital Signs Temp 98.9 F 07/07/22 07:25 Pulse 85 07/07/22 07:25 Resp 20 07/07/22 07:25 BP 114/59 L 07/07/22 07:25 Pulse Ox 95 07/07/22 07:25 O2 Del Method Room Air 07/07/22 07:25 BMI result Body Mass Index 54.1 Appearing in no acute distress head is normocephalic atraumatic eyes pupils are PERRLA sclera is anicteric mouth throat mucous membranes are intact and moist neck is supple no lymphadenopathy, no JVD noted lung sounds are clear to auscultation heart regular rate rhythm, clear S1, S2 positive bowel sounds, abdomen is soft, nontender neuro patient is alert x3, no focal deficits dark skin changes to groin and panus DS: Data Data Completed and Pending Labs on day of discharge: Laboratory Results - last 24 hr 07/06/22 07/06/22 07/07/22 16:18 20:48 07:43 POC Glucose 98 107 101 07/07/22 10:53 POC Glucose 96 Preliminary micro results at discharge 07/04/22 16:00 Blood Culture - Preliminary Blood - Venous No growth after 48 hours. Discharge Plan Discharge Anticipated Discharge Date/Time: 07/07/22 13:31 Patient Disposition: Home, Self-Care Discharge Diagnosis: Intetrigo Referrals: Lise Fiore MD [Primary Care Provider] - 1 Week Discharge Medications: New nystatin 100,000 unit/gram Powder 1 appl topical TID 7 Days Qty: 60 0RF Protocol: Apply to: Apply to: affected hours clotrimazole 1 % Cream 1 appl topical TID 7 Days Qty: 30 0RF Protocol: Apply to: Apply to: Abdominal skin folds, groin Continued multivitamin Tablet 1 tab PO DAILY buspirone 30 mg Tablet 30 mg PO BID PRN (Reason: Anxiety) metformin 500 mg tablet 500 mg PO BIDAC (DME) blood-glucose meter [FreeStyle Lite Meter] Kit See Rx Instructions .Route Qty: 1 0RF Rx Instructions: As directed (DME) FreeStyle Lite Strips Strip See Rx Instructions .Route Qty: 100 3RF Rx Instructions: Use 1 test strip once a day (DME) lancets [FreeStyle Lancets] 28 gauge misc See Rx Instructions .Route Qty: 100 3RF Rx Instructions: Use 1 lancet once a day fluconazole [Diflucan] 100 mg tablet 100 mg PO DAILY 7 Days Qty: 7 0RF nystatin 100,000 unit/gram powder 1 appl topical DAILY Qty: 60 0RF albuterol sulfate 90 mcg/actuation HFA aerosol inhaler 2 puff inhalation Q6H PRN (Reason: shortness of breath or wheezing) Qty: 6.7 0RF naproxen 500 mg tablet 500 mg PO BID PRN (Reason: pain) 30 Days Qty: 60 1RF fluticasone propionate [Flonase Allergy Relief] 50 mcg/actuation spray,suspension 1 spray intranasal BID 30 Days Qty: 16 0RF Rx Instructions: administer into each nostril Discharge Orders: Discharge Order (Routine); Ordered 07/07/22 Ordered By: Ashley Go Diet: Advance to usual diet Activity on Discharge: As tolerated Stand Alone Forms: Patient Portal Discharge page Care Plan Goals: Complete resolution of symptoms Health Concerns: Intertrigo/yeast infection Plan of Treatment: Follow-up with primary care provider as needed Cleanse area below abdomen with soap and water and dry thoroughly to avoid continued dampness Assessment: See discharge summary Patient Instructions: Skin Yeast Infection (GEN)
--- NOTE | 2022-07-07 13:48 | MHC.CM.PN ---
DP: PT HAS BEEN MEDICALLY CLEARED FOR DC HOME, NO SERVICES. WILL TRANSPORT
== END 2022-07-07 15:48 | disposition home or self-care (01) | DRG 420 ==
LOC: HO.ED 21:11 → HO.EDOVER 22:08 → HO.S3 23:51
PROVIDERS: Physician Assistant; Physician Assistant Medical; Admitting Provider Student in an Organized Health Care Education/Training Program; Emergency Provider Emergency Medicine; PCP Internal Medicine; Visit Provider Nurse Practitioner Acute Care
DX: E11.628 Type 2 diabetes mellitus with other skin complications (principal); L03.311 Cellulitis of abdominal wall; L03.314 Cellulitis of groin; Z68.43 Body mass index [BMI] 50.0-59.9, adult; J45.30 Mild persistent asthma, uncomplicated; F33.9 Major depressive disorder, recurrent, unspecified; F41.1 Generalized anxiety disorder; M79.7 Fibromyalgia; G47.33 Obstructive sleep apnea (adult) (pediatric); E66.01 Morbid (severe) obesity due to excess calories; L30.4 Erythema intertrigo; Z88.0 Allergy status to penicillin; Z79.51 Long term (current) use of inhaled steroids; Z79.84 Long term (current) use of oral hypoglycemic drugs; Z79.899 Other long term (current) drug therapy
CPT/HCPCS: 36415; 80053; 82550; 82947; 83605; 83735; 83880; 85025; 85652; 86140; 87040; 87147; 87205; 93005; 94660; 99221; 99285; J0690; J0696; J1200; J1450; J1650; J3371

== ENCOUNTER 2023-05-07 09:38 | Outpatient (AMB) | payer OTHER, SELFPAY ==
[2023-05-07 09:43] VITALS: BP 142/98; BMI 50.0
--- NOTE | 2023-05-07 09:43 | A.OFFPC_ITS ---
Vital Signs 05/07/23 09:43 05/07/23 12:05 Height 5 ft 7 in Weight 319 lb BMI 50.0 BP 142/98 H 140/90 H Blood Pressure Location Lt brachial Lt brachial Position Sitting Sitting Intake Visit Reasons: Annual exam Intake Note: Patient here for an annual physical exam Pit Clerk Required: No Accompanied by: Self / Same As Patient Allergies Penicillins Allergy (Mild, Verified 05/07/23 10:01) Rash Shrimps Allergy (Intermediate, Uncoded 05/07/23 10:01) anaphylaxis Medication List - Last Reconciled 05/07/23 by Lise Voss MD albuterol sulfate 90 mcg/actuation 2 puffs inhalation Q6H PRN blood sugar diagnostic (FreeStyle Lite Strips) Use 1 test strip once a day blood-glucose meter (FreeStyle Lite Meter kit) As directed fluticasone propionate 50 mcg/actuation (Flonase Allergy Relief) 1 spray intranasal BID 30 days lancets (FreeStyle Lancets) Use 1 lancet once a day multivitamin 1 tab PO DAILY naproxen 500 mg PO BID PRN 30 days Tobacco use date assessed: 05/07/23 Dental Screening Dental Screen Date: 05/07/23 Did you have a dental visit in the last 12 months?: Yes Did you have a dental problem in the last 6 months where you did not have access to dental care?: No Was dental information given to patient?: Patient has dentist HPI HPI Comments History of Present Illness Details This is a 47-year-old female with diabetes mellitus type 2 without anti diabetics and controlled with diet that comes for her physical exam. A1c within goal. Last mammogram was April 2022. Last Pap smear was 2021. Has never had a colonoscopy and has no family history of colon cancer. She would like to do Cologuard instead. He is morbidly obese with a BMI of 50 and declines weight l oss surgery. No chest pain or shortness of breath. Depression in the past resolved. [facility] Medical History (Updated 05/07/23 @ 12:06 by Lise Voss MD) Transaminitis Polyarthralgia Bilateral primary osteoarthritis of knee Moderate recurrent major depression Eczema Fibromyalgia MAGNOLIA on CPAP Mild persistent asthma, uncomplicated KEVYN (generalized anxiety disorder) Morbid obesity due to excess calories Type 2 diabetes mellitus, without long-term current use of insulin Surgical History History of Achilles tendon repair History of hysterectomy Family History Mother Hypertension Hypothyroid Mental health disorder Father Sleep apnea Brother Substance use disorder Maternal Aunt Breast CA Maternal Aunt Skin cancer Son No problems noted. Daughter Headache Daughter Hypertension Social History Household Members: Spouse and Family Housing: House Do you presently have visiting nurse or other home services: No Alcohol intake: never Patient Tobacco Use Status: Never used Tobacco e-Cigarette/Vaping Use: Never Used Second Hand Smoke Exposure: No service: No Current occupational status: unemployed Cognitive needs: No Hearing needs: No Vision needs: No Female Reproductive History Menstrual Age of Menarche: 9 Questionnaire PHQ-9 Over the last 2 weeks, how often have you been bothered by any of the following problems? 1. Little interest or pleasure in doing things: not at all 2. Feeling down, depressed, or hopeless: not at all 3. Trouble falling or staying asleep, or sleeping too much: not at all 4. Feeling tired or having little energy: not at all 5. Poor appetite or overeating: not at all 6. Feeling bad about yourself - or that you are a failure or have let yourself or your family down: not at all 7. Trouble concentrating on things, such as reading the newspaper or watching television: not at all 8. Moving or speaking so slowly that other people could have noticed. Or the opposite - being so fidgety or restless that you have been moving around a lot more than usual: not at all 9. Thoughts that you would be better off or of hurting yourself in some way: not at all Total score: 0 Depression Screening Interpretation: Negative Depression Screening Done: Yes 92984 - PHQ-9 Billing: Yes Source: Developed by Drs. Watson Hester, Carlene Robledo, Jonathan Shell and colleagues, with an educational matthew from [employer]. Thrive Questionnaire Date Thrive assessed: 05/07/23 I am a: Patient What is your living situation today?: I have a steady place to live Within the past 12 months, did the food you bought not last and you didn't have the money to get more?: Never true Within the past 12 months, did you worry whether your food would run out before you got money to buy more?: Never true Do you have trouble paying for medicines?: No Do you have trouble getting transportation to medical appointments?: No Do you have trouble paying your heating and electricity bill?: No Do you have trouble taking care of your child, family member or friend?: No Do you have trouble with day-to-day activities such as bathing, preparing meals, shopping, managing finances, etc.?: No Are you currently unemployed and looking for a job?: No Are you interested in more education?: No Please select the resources that you would like help with: None Currently or been in a relationship where the following occur: no concerns reported THRIVE Score: 0 AUDIT C Alcohol Use Questionnaire (AUDIT-C) 1. How often do you have a drink containing alcohol?: Never Total Score: 0 Score Reviewed/Action Taken: No KEVYN-7 AMB Questionnaire KEVYN-7 Date KEVYN - 7 assessed: 05/07/23 Feeling nervous, anxious, or on edge: 0 = Not at all Not being able to stop or control worryin = Not at all Worrying too much about different things: 0 = Not at all Trouble relaxin = Not at all Being so restless that it is hard to sit still: 0 = Not at all Becoming easily annoyed or irritable: 0 = Not at all Feeling afraid as if something awful might happen: 0 = Not at all Total KEVYN-7 score (0-4 normal; 5-9 mild; 10-14 moderate; 15-21 severe): 0 Source: Developed by Drs. Watson Hester, Carlene Robledo, Jonathan Shell and colleagues, with an educational matthew from [employer]. KEVYN-7 Assessment Billing KEVYN-7 Assessment Tool: KEVYN-7 Assessment 22365 Review of Systems Const All systems reviewed & are unremarkable except as noted in HPI and below Eyes Reports no additional complaints, Denies change in vision and Denies other visual disturbances Card Denies chest pain at rest, Denies chest pain with activity, Denies edema, Denies irregular heart rhythm, Denies claudication, Denies dyspnea, Denies dyspnea on exertion, Denies orthopnea, Denies paroxysmal nocturnal dyspnea and Denies slow heart rate Resp Denies cough, Denies dyspnea and Denies dyspnea on exertion GI Denies abdominal pain, Denies change in bowel habits, Denies excessive flatus, Denies nausea and Denies vomiting Denies urinary incontinence, Denies urinary hesitancy and Denies urinary urgency Musc Denies abnormal gait, Denies atrophy, Denies deformity and Denies limited range of motion Skin/Breast Denies bleeding lesions, Denies changing lesions and Denies rash Neuro Denies abnormal gait and Denies lack of coordination Physical exam (Primary Care) Vital Signs: Last Vital Signs BP 142/98 H 05/07/23 09:43 BMI result Body Mass Index 50.0 Tobacco/Smoking Status: Tobacco use Status Tobacco use date assessed 05/07/23 05/07/23 09:49 Patient Tobacco Use Status Never used Tobacco 05/07/23 09:49 e-Cigarette/Vaping Use Never Used 05/07/23 09:49 PHQ-9: PHQ-9 Score PHQ-9: Total score 0 05/07/23 10:06 Depression Screening Interpretation: Negative Thrive Assessment: Date of Thrive Assessment Date Thrive assessed 05/07/23 05/07/23 09:49 Currently or been in a relationship where the following occur: no concerns reported Const Orientation/consciousness: patient oriented x3 [facility] Head: Yes normal to inspection, Yes normocephalic and Yes atraumatic Ears: external ears normal Eyes General: appearance normal, both eyes and all related structures Eyelids: Yes eyelids normal Conjunctivae: conjunctivae normal Neck Neck: Yes normal visual inspection and Yes supple Resp Effort & Inspection: normal respiratory effort Auscultation: clear to auscultation bilaterally Cardio Jugular venous distension: no JVD Rate: regular rate Rhythm: regular rhythm Heart sounds: S1 normal heart sound present and S2 normal heart sound present GI Inspection: Yes normal to inspection Palpation (GI): Soft to palpation and nontender Auscultation: normal bowel sounds Skin General skin exam: no rashes or lesions noted Neuro General: patient oriented x3 and no focal motor deficits Extrem General: Yes full ROM Psych Appearance: grossly normal Results AMB Hemoglobin A1c AMB Hemoglobin A1c 5.8 % Last Edit by AMBROCIO Bhat on 05/07/23 09:5 0 Results Reviewed Results Reviewed: Laboratory Last Values Hgb A1c (Clinic) 5.8 % (4.0-6.0) 05/06/ 09:49 Assessment and Plan Assessment & Plan (1) Physical exam: Code(s): Z00.00 - Encounter for general adult medical examination without abnormal findings Plan: Repeat in a year. (2) Type 2 diabetes mellitus, without long-term current use of insulin: Code(s): E11.9 - Type 2 diabetes mellitus without complications Plan: Continue diet. A1c goal is equal or less than 7%. (3) Morbid obesity due to excess calories: Code(s): E66.01 - Morbid (severe) obesity due to excess calories Plan: Decline weight management. Start diet and exercise. BMI goal is less than 30. Orders: Orders Microalbumin, Random (w Creat) Today E11.9 - Type 2 diabetes mellitus without complications AMB Hemoglobin A1c Today E11.9 - Type 2 diabetes mellitus without complications Lipid Panel Today E78.5 - Hyperlipidemia, unspecified Comprehensive [place]. Panel Fast Today Z00.00 - Encounter for general adult medical examination without abnormal findings Referrals Cologuard Test Z12.11 - Encounter for screening for malignant neoplasm of colon, Z12.12 - Encounter for screening for malignant neoplasm of rectum Medications: New triamcinolone acetonide 0.5% 1 appl topical BID 2 weeks 15 grams 1RF L30.9 - Dermatitis, unspecified Coding Level of Care Code Est Pt Prev Care 40-64y(60226) Diagnoses Physical exam Z00.00 Type 2 diabetes mellitus, without long-term current use of insulin E11.9 Morbid obesity due to excess calories E66.01 Additional Codes KEVYN-7 Assessment Billing - KEVYN-7 Assessment Tool: KEVYN-7 Assessment [id number] ([id number]) Time Spent (min) 32
[2023-05-07 12:05] VITALS: BP 140/90
== END 2023-05-07 10:14 | disposition home or self-care (01) ==
PROVIDERS: Visit Provider Internal Medicine
DX: Z00.00 Encounter for general adult medical examination without abnormal findings (principal); E11.9 Type 2 diabetes mellitus without complications; E66.01 Morbid (severe) obesity due to excess calories; Z68.43 Body mass index [BMI] 50.0-59.9, adult
CPT/HCPCS: 83036; 99396

== ENCOUNTER 2023-05-07 10:19 | Outpatient (REF) | payer OTHER, SELFPAY ==
[2023-05-07 12:07] LABS: Alanine Aminotransferase 24 U/L (0-31); Albumin Level 4.2 g/dL (3.5-5.0); Alkaline Phosphatase 122 U/L (39-117); Anion Gap 15 (12-20); Aspartate Amino Transferase 22 U/L (5-31); Bilirubin Total 0.3 mg/dL (0.0-1.0); Blood Urea Nitrogen 12 mg/dL (9-16); Calcium 9.5 mg/dL (8.4-10.2); Carbon Dioxide 25 mmol/L (22-29); Chloride 107 mmol/L (96-108); Cholesterol 166 mg/dL (<200); Estimated Glomerular Filt Rate > 60; Glucose Fasting 92 mg/dL (60-99); HDL Cholesterol 50 mg/dL (>40); LDL Cholesterol Calculated 98 mg/dL (<100); Potassium 3.9 mmol/L (3.3-5.1); Sodium 143 mmol/L (135-145); Total Protein 7.6 g/dL (6.5-8.0); Triglycerides 90 mg/dL (<150)
[2023-05-07 12:57] LABS: Creatinine Urine 135.51 mg/dL; Microalbum/Creatinine Ratio Ur 10.3 ug/mg cr (<30)
== END 2023-05-07 10:20 | disposition home or self-care (01) ==
LOC: HO.LAB 10:19
PROVIDERS: PCP Internal Medicine; Visit Provider Internal Medicine
DX: Z00.00 Encounter for general adult medical examination without abnormal findings (principal); E11.9 Type 2 diabetes mellitus without complications; E78.5 Hyperlipidemia, unspecified
CPT/HCPCS: 36415; 80053; 80061; 82043; 82570

== ENCOUNTER 2023-10-01 10:02 | Outpatient (REF) | payer OTHER, SELFPAY ==
[2023-10-04 15:34] LABS: TS Negative Control Passed; TS Panel A 3; TS Panel B 0; TS Positive Control Passed; TSpotTB Negative (Negative)
== END 2023-10-01 10:03 | disposition home or self-care (01) ==
LOC: HO.LAB 10:02
PROVIDERS: PCP Internal Medicine; Visit Provider Internal Medicine
DX: Z11.1 Encounter for screening for respiratory tuberculosis (principal)
CPT/HCPCS: 36415; 86481

== ENCOUNTER 2023-10-29 12:37 | Outpatient (AMB) | payer OTHER, SELFPAY ==
--- NOTE | 2023-10-29 12:38 | AM.OFFWIN_ITS ---
Intake Vital Signs 10/29/23 12:41 10/29/23 13:01 Height 5 ft 7 in Weight 323 lb BMI 50.6 BP 118/64 Blood Pressure Location Lt brachial Position Sitting Pulse 123 H 108 H Pulse Source Pulse Oximeter Pulse Oximeter Temp 99 F Temp Source Oral Pulse Oximetry (%) 97 Oxygen Delivery Method Room Air Intake Visit Reasons: EP-sore throat, body ache Intake Note: Patient here for sore throat and body aches that started yesterday. Family members in house have strep throat. Patient Tobacco Use Status: Never used Tobacco Allergies Penicillins Allergy (Mild, Verified 10/29/23 12:42) Rash Shrimps Allergy (Intermediate, Uncoded 10/29/23 12:42) anaphylaxis Do you need a note to return to daycare/school/sports/work: No HPI HPI Comments History of Present Illness Details Patient is a 48-year-old female complaining a sore throat, subjective fever and chills and a headache x2 days. She denies any cough, shortness of breath, nausea vomiting or diarrhea. She states all 3 of her children at home have been diagnosed with strep pharyngitis and are on antibiotics. She states she takes ibuprofen and naproxen for other reasons and that could be masking her fever a little bit. She states she is drinking her normal amount of water and eating but it does hurt to swallow. [facility] Medical History (Updated 10/29/23 @ 13:01 by Zoë Moon PA-C) Transaminitis Polyarthralgia Bilateral primary osteoarthritis of knee Moderate recurrent major depression Eczema Fibromyalgia MAGNOLIA on CPAP Mild persistent asthma, uncomplicated KEVYN (generalized anxiety disorder) Morbid obesity due to excess calories Type 2 diabetes mellitus, without long-term current use of insulin Surgical History History of Achilles tendon repair History of hysterectomy Family History Mother Hypertension Hypothyroid Mental health disorder Father Sleep apnea Brother Substance use disorder Maternal Aunt Breast CA Maternal Aunt Skin cancer Son No problems noted. Daughter Headache Daughter Hypertension Social History Household Members: Spouse and Family Housing: House Do you presently have visiting nurse or other home services: No Alcohol intake: never Patient Tobacco Use Status: Never used Tobacco e-Cigarette/Vaping Use: Never Used Second Hand Smoke Exposure: No service: No Current occupational status: unemployed Cognitive needs: No Hearing needs: No Vision needs: No Female Reproductive History Menstrual Age of Menarche: 9 Review of Systems Const All systems reviewed & are unremarkable except as noted in HPI and below Physical Exam Vital Signs: Last Vital Signs Temp 99 F 10/29/23 12:41 Pulse 123 H 10/29/23 12:41 BP 118/64 10/29/23 12:41 Pulse Ox 97 10/29/23 12:41 Oxygen Delivery Method Room Air 10/29/23 12:41 BMI result Body Mass Index 50.6 Const General: cooperative, healthy appearing, comfortable and no acute distress Orientation/consciousness: patient oriented x3 Limitations: no limitations HEENT Head: Yes normal to inspection Ears: hearing grossly normal bilaterally, external ears normal and TM's normal bilaterally General nose exam: Normal external nose present, Normal nares present and No nasal discharge present Face and sinus: Yes normal facial exam and Yes sinuses nontender Mouth: Normal oral and palatal mucosa present and moist mucous membranes Throat: Yes tonsils normal, Yes uvula midline and Yes posterior oropharynx abnormal (Erythema) Eyes General: appearance normal, both eyes and all related structures Neck Neck: Yes normal visual inspection Resp Effort & Inspection: normal respiratory effort, able to speak in complete sentences, Actively coughing, no respiratory distress, not tachypneic, no tripod positioning and no use of accessory muscles Skin General skin exam: no rashes or lesions noted Neuro General: patient oriented x3 Extrem General: Yes normal to inspection and Yes no clubbing, cyanosis or edema Assessment & Plan Assessment & Plan (1) Strep pharyngitis: Code(s): J02.0 - Streptococcal pharyngitis Plan: Rapid strep negative, based on symptoms, center criteria 2 points/11-17% probability strep pharyngitis however with her 3 children sick at home and her sudden onset of symptoms, we will treat with antibiotics. Reviewed with her that her heart rate was elevated, likely secondary to her fevers, reviewed with patient how to check her heart rate and recommended if it stays elevated, over 120 when she is at rest, she should go to the emergency department to be evaluated. However, when she was sitting, relaxed, heart rate was red around the low 100s and regular. Plan see above Medications: New azithromycin 500 mg PO DAILY 5 days 5 tabs 0RF Coding Level of Care Code Est Pt Level 3 (64409) Diagnoses Strep pharyngitis J02.0
[2023-10-29 12:41] VITALS: BP 118/64; PULSE 123; TEMP 37.2; O2SAT 97; BMI 50.6
[2023-10-29 13:01] VITALS: PULSE 108
== END 2023-10-29 13:08 | disposition home or self-care (01) ==
PROVIDERS: PCP Internal Medicine; Visit Provider Physician Assistant
DX: J02.0 Streptococcal pharyngitis (principal)
CPT/HCPCS: 87880; 99213

== ENCOUNTER 2024-04-27 08:00 | Outpatient (AMB) | payer OTHER, SELFPAY ==
--- OUTSIDE RECORDS SUMMARY | 2024-04-27 08:03 | XMS_ITS | Continuity of Care Document ---
Author Organization [facility] Address [address] [place] [address] Insurance Providers Payer Plan Claims Address Claims Phone Policy Number Group Number Relation Employer Guarantor Name Guarantor Guarantor Address Guarantor Phone [facility] [id number] Self Marlene Allen 1975 [address] [place] [address] [facility] [place] [place] [address], [place] [address] tel:[phone] Self Marlene Allen 1975 [address] [place] [address] Health Safety Net Full Healt [facility] Safet y Net Full [id number] Rene Allen 1975 [address] [place] [address] Problems Unknown Problems Results Test Value / Unit Interpretation Reference Ran Comp. Metabolic Panel (14)[[id number]]?Collected: 01/19/2024 04:06 PM?Specimen Received: 01/19/2024 05:00 AM?Source: [facility] Glucose [333527] 110 mg/dL H 70-99 mg/dL BUN [927940] 13 mg/dL 6-24 mg/dL Creatinine [155396] 0.45 mg/dL L 0.57-1.0 0 mg/dL eGFR [824315] 118 mL/min/1.73 >59 mL/min/ 1.73 BUN/Creatinine Ratio [883668] 29 H 9-23 Sodium [857613] 143 mmol/L 134-144 mmol /L Potassium [372653] 4.5 mmol/L 3.5-5.2 m mol/L Chloride [075010] 102 mmol/L 96-106 mmo l/L Carbon Dioxide, Total [461986] 23 mmol/L 20-29 mmol/L Calcium [472820] 9.2 mg/dL 8.7-10.2 mg /dL Protein, Total [570056] 7.0 g/dL 6.0- 8.5 g/dL Albumin [899622] 4.3 g/dL 3.9-4.9 g/d L Globulin, Total [446924] 2.7 g/dL 1.5 -4.5 g/dL Bilirubin, Total [016068] 0.2 mg/dL 0. 0-1.2 mg/dL Alkaline Phosphatase [159572] 120 IU/L 44-121 IU/L AST (SGOT) [765844] 16 IU/L 0-40 IU/ L ALT (SGPT) [373272] 18 IU/L 0-32 IU/ L Lipid Panel[[id number]]?Collected: 01/19/2024 04:06 PM?Specimen Received: 01/19/2024 05:00 AM?Source: [facility] Cholesterol, Total [762804] 204 mg/dL H 100-199 mg/dL Triglycerides [599416] 92 mg/dL 0-149 mg/dL HDL Cholesterol [565910] 54 mg/dL >39 mg/dL VLDL Cholesterol Hari [569791] 17 mg/dL 5-40 mg/dL LDL Chol Calc ([facility]) [487121] 133 mg/dL H 0-99 mg/dL Albumin/Creatinine Ratio,Uri ne[[id number]]?Collected: 01/19/2024 04:06 PM?Specimen Received: 01/19/2024 05:00 AM?Source: [facility] Creatinine, Urine [763104] 109.1 mg/dL N ot Estab. mg/dL Albumin, Urine [439941] 10.3 ug/mL Not Estab. ug/mL Alb/Creat Ratio [983799] 9 mg/g creat 0-2 9 mg/g creat Normal: 0 - 29 Moderately in creased: 30 - 300 Severely increased: >300 Hemoglobin A1c[306297]?Collected: 01/19/2024 04:06 PM?Specimen Received: 01/19/2024 05:00 AM?Source: [facility] Hemoglobin A1c [674144] 6.0 % H 4.8- 5.6 % . Prediabetes: 5.7 - 6.4 Tanvi betes: >6.4 Glycemic control for adults with diabetes: 7.0 Allergies, adverse reactions, alerts No known allergies and adverse reactions Medications No administered medications reported Vital Signs No vital signs reported Social History No smoking Hx information available
--- OUTSIDE RECORDS SUMMARY | 2024-04-27 08:03 | XMS_ITS | Patient Health Record ---
Author Organization [facility] Address [address] [facility] [address] [place] [address] Care Team Providers Care Personal Care Aide Name Role Phone Lise Fiore Primary Care Provider Unavailab le Allergies Allergen (clinical drug ingredient) Drug/Non Drug Allergy documented on EMR Reaction Allergy Type Onset Date Status shrimp allergenic extract Shrimp (Diagnostic) Unknown Drug Allergy Active Penicillin rash Drug Allergy Active Reason For Referral No Information Medications Medication SIG (Take, Route, Frequency, Duration) Notes Start Date End Date Status metFORMIN HCl Active Aleve Active Social History Sex Assigned At : Social History Observation Description Sex Assigned At Female Section Notes: Tobacco: no Alcohol: no Problems Problem Type SNOMED Code ICD Code Onset Dates Problem Status W/U Status Risk Notes Problem 7328007 Psoriasis (L40.9) Active confirmed Plan Of Treatment No Information Insurance Providers Payer Name Payer Address Payer Phone Subscriber Number Group Number Insured Name Patient Relationship to Insured Coverage Start Date Coverage End Date [address] [place] [address] [id number] Alejandro Marlene Self - patient is the insured Medical (General) History Medical History History ICD Code sleep apnea type II diabetes asthma osteoarthritis ? eczema on legs + COVID 2019 and 2020 COVID vaccinated X 2 (Moderna) History of elevated Alkaline phosphatase Surgical History Surgery Date(Month/Year) hysterectomy left ankle surgery fatty mass removed from chin Hospitalization History Reason Date(Month/Year) hysterectomy vaginal delivery (girl) 1997 vaginal delivery (girl) 1991 vaginal delivery (boy) 1988
--- OUTSIDE RECORDS SUMMARY | 2024-04-27 08:03 | XMS_ITS ---
Author Organization [facility] Address [address] [address] Care Team Providers Care Sewage Plant Operator Name Role Phone Lise Fiore Primary Care Provider Unavailab FAIZA Rosales Unavailable [phone] Allergies Allergen (clinical drug ingredient) Drug/Non Drug Allergy documented on EMR Reaction Allergy Type Onset Date Status shrimp allergenic extract Shrimp (Diagnostic) Unknown Drug Allergy Active Penicillin rash Drug Allergy Active REASON FOR VISIT B/L toenail changes Medications Medication SIG (Take, Route, Frequency, Duration) Notes Start Date End Date Status metFORMIN HCl Active Aleve Active Social History Sex Assigned At : Social History Observation Description Sex Assigned At Female Section Notes: Tobacco: no Alcohol: no Problems Problem Type SNOMED Code ICD Code Onset Dates Problem Status W/U Status Risk Notes Problem 8828235 Psoriasis (L40.9) Active confirmed Vital Signs Temperature 97.3 degrees Fahrenheit 11/11/19 23 Heart Rate 97 /min 11/10/2022 Respiratory Rate 20 /min 11/10/2022 Height 5ft 7in in 11/10/2022 Weight 339.0 lbs 11/10/2022 BMI 53.09 kg/m2 11/10/2022 Encounters Encounter Location Date Provider Diagnosis [facility] [address] [address] 11/10/2022 FAIZA HERMOSILLO Nail dystrophy L60.3 ; Onychomycosis B35.1 and Psoriasis L40.9 Assessments Encounter Date Diagnosis (ICD Code) Assessment Notes Treatment Notes Treatment Clinical Notes Section Notes 11/10/2022 Nail dystrophy (ICD-10 - L60.3) Patient was seen and examined, history reviewed. She has changes to both great toenails. I educated the patient on fungal toenail infections and the difficulty of treating them. Treatment options include topical medications and oral medications. Patient was educated that trauma to the nail bed can also cause a fungal like appearance to the nail, however there are no treatment option to normalize the nail plate in this instance. We also discussed how inflammatory issues, vitamin deficiencies, vascular issues and medications can change the nail plate as well. Patient understood. Advised patient that it can take 9-12 months for the toenail(s) to improve with treatment, and that recurrence is common. Oral medications were discussed. All risks of taking oral antifungals were reviewed which included liver toxicity and failure, along with GI upset, rash, headache/dizzines s, and unusual taste/loss of taste. Patient advised to watch for nausea, vomiting, abdominal pain, loose stools, and jaundice while on medication. If any symptoms do occur, patient should stop taking the medication immediately and contact the office. Baseline hepatic function tests are monitored when taking oral antifungal medications. Topical antifungals were discussed with the patient as well. Advised that these need to be used daily to the affected nails. They are less effective in eradicating the fungal infection than the oral medication, but have minimal side effects. This treatment should be done consistently over a 48 week period. She also has what looks to be plaque psoriasis to the right lower leg. I discussed with her how eczema and psoriasis can look alike. I discussed how psoriasis can change the toenails and create a fungal appearance. I took samples of the right hallux toenail using a sterile nail nipper today. She tolerated this well. I have sent these samples to [facility] for further analysis of fungus vs inflammatory changes. I will call the patient once I have the results and we will treat accordingly. I provided her with written education on onychomycosis and all the treatments. I encouraged her to call if she has any questions or concerns. 11/10/2022 Onychomycosis (ICD-10 - B35.1) 11/10/2022 Psoriasis (ICD-10 - L40.9) Plan Of Treatment Treatment Notes Assessment Notes Nail dystrophy Patient was seen and examined, history reviewed. She has changes to both great toenails. I educated the patient on fungal toenail infections and the difficulty of treating them. Treatment options include topical medications and oral medications. Patient was educated that trauma to the nail bed can also cause a fungal like appearance to the nail, however there are no treatment option to normalize the nail plate in this instance. We also discussed how inflammatory issues, vitamin deficiencies, vascular issues and medications can change the nail plate as well. Patient understood. Advised patient that it can take 9-12 months for the toenail(s) to improve with treatment, and that recurrence is common. Oral medications were discussed. All risks of taking oral antifungals were reviewed which included liver toxicity and failure, along with GI upset, rash, headache/dizziness, and unusual taste/loss of taste. Patient advised to watch for nausea, vomiting, abdominal pain, loose stools, and jaundice while on medication. If any symptoms do occur, patient should stop taking the medication immediately and contact the office. Baseline hepatic function tests are monitored when taking oral antifungal medications. Topical antifungals were discussed with the patient as well. Advised that these need to be used daily to the affected nails. They are less effective in eradicating the fungal infection than the oral medication, but have minimal side effects. This treatment should be done consistently over a 48 week period. She also has what looks to be plaque psoriasis to the right lower leg. I discussed with her how eczema and psoriasis can look alike. I discussed how psoriasis can change the toenails and create a fungal appearance. I took samples of the right hallux toenail using a sterile nail nipper today. She tolerated this well. I have sent these samples to [facility] for further analysis of fungus vs inflammatory changes. I will call the patient once I have the results and we will treat accordingly. I provided her with written education on onychomycosis and all the treatments. I encouraged her to call if she has any questions or concerns. Progress Notes * Marlene ALLENDOB:1975 ( 47 yo F)Acc No.[id number]:11/10/2022 Progress Notes Patient:?Marlene Allen Provider:?Faiza Richards DPM :1975???Age:47 Y???Sex:Female D ate:11/10/2022 Phone: Address:[address] [place], [place] [address], [id number] Pcp:Lise Voss Subjective: * Chief Complaints: * ???B/L toenail changes * HPI: ???Foot & Ankle:? Ms. Allen is a pleasant 47 year female who presents for consultation. She has thickness and discoloration to both great toenails. She states the toenails have been like this for 2 years. She has had no trauma to the toes that she can remember. She has no pain associated with them. She has tried topical antifungals from the store without any changes. She does admit to having eczema on her right leg. She has always used a topical steroid for this, but it does not seem to work anymore. She has never had the rash biopsied. * ROS:?General/Constitutional:?Denies?Chills.?Denies?Fatigue.?Denies?Fever.?Denies?Headache.?Allergy/Immunology:?Denies?Hives.?Denies?Itching.?Denies?Rash.?Endocrine:?Denies?Excessive sweating.?Denies?Excessive thirst.?Denies?Frequent urination.?Respiratory:?Denies?Cough.?Denies?Shortness of breath,?denies.?Denies?Wheezing.?Cardiovascular:?Denies?Chest pain.?Denies?Claudication.?Denies?Cyanosis.?Gastrointestinal:?Denies?Abdominal pain.?Denies?Constipation.?Denies?Diarrhea.?Hematology:?Denies?Bleeding problems,?denies.?Denies?Easy bruising,?denies.?Denies?Swollen glands.?Musculoskeletal:?Admits?Arthritis/Arthralgia.?Admits?Back problems.?Admits?Joint stiffness.?Denies?Leg cramps.?Denies?Swollen joints.?Peripheral Vascular:?Denies?Blanching of skin.?Blood clots in legs?Denies.?Denies?Cold extremities.?Skin:?Denies?Masses.?Admits?Nail changes.?Admits?Rash,?to right leg.?Denies?Skin lesion(s).?Neurologic:?Denies?Paralysis.?Denies?Tingling/Numbness.?Denies?Tremor.?Psychiatric:?Denies?Auditory/visual hallucinations.?Denies?Delusions.?Denies?Suicidal thoughts.? * Medical History:? * Surgical History:?hysterecto my left ankle surgery fatty mass removed from chin * Hospitalization/Major Diagno stic Procedure:?vaginal delivery (boy) 1988vaginal delivery (girl) 1991vaginal delivery (girl) 1997hysterectomy * Family History:?Father: hear t disease.?Mother: high cholesterol, thyroid problems, arthritis.?Maternal Grand Mother: arthritis.?Maternal aunt: breast canceraunt- skin cancer.?1 son(s) , 2 daughter(s) - healthy. .? * Social History:?Tobacco: no Alcohol: no. * Medications:?TakingAleve met FORMIN HCl Medication List reviewed and reconciled with the patientTaking Aleve Taking metFORMIN HCl Medication List reviewed and reconciled with the patient * Allergies:?Penicillin: rashS hrimp (Diagnostic)no[Allergies Verified] Objective: * Vitals:?Wt:339.0lbs, Ht: 5ft 7in, BMI:53.09Index, HR:97/min, Temp:97.3F, RR:20/min, Ht-cm: 170.18, Wt-k.77 kg. * Examination: ???General Examination: ???This is a middle aged female. Alert and oriented today and in no acute distress. Patient comes in ambulating in slip on sneakers without using any assistive devices. Breathing is regular and unlabored while sitting. Affect is pleasant and cooperative. No unusual anxiety or depression noted. Hearing intact to spoken word. No evidence of visual impairment that would impact self care or ambulation. Patient has palpable dorsalis pedis and posterior tibial pulse bilaterally. Many small varicosities visualized to both lower extremities. No peripheral edema present. Capillary refill is less than 3 seconds to all digits bilaterally. Light touch sensation is symmetrical to all lower extremity dermatomes. Babinski is downgoing. Skin has normal turgor and texture. There is a nummular plaque to the anterolateral aspect of the lower right leg that is hyperemic and has superficial scaling. The right and left hallux toenails have distal green to yellow discoloration with increased nail thickness and lysis. There is proximal clearance to both toenails. No pain with pressure to the nail plates. No discoloration to the surrounding nail folds. 5/5 strength for anterior, posterior, and lateral lower extremity muscle groups on the left and right. Therapeutic Interventions: Assessment: * Assessment: 1.?Nail dystrophy - L60.3 (P rimary)?2.?Onychomycosis - B35.1?3.?Psoriasis - L40.9? Plan: * Treatment: * Procedure Codes:? * Billing Information: * Visit Code:? 52663 Office Visit, New Pt., Level 3. * Procedure Codes:? * Sign off status: Completed true * Provider:?Faiza Richards DPM Date:?11/10 Generated for Umu mccullough/Joey/Javonitting on:?04/27/2024 08:03 AM EDT History and Physical Notes * Examination Category Sub-Category Detail Notes Category Not es General Examination This is a middle aged female. Alert and oriented today and in no acute distress. Patient comes in ambulating in slip on sneakers without using any assistive devices. Breathing is regular and unlabored while sitting. Affect is pleasant and cooperative. No unusual anxiety or depression noted. Hearing intact to spoken word. No evidence of visual impairment that would impact self care or ambulation. Patient has palpable dorsalis pedis and posterior tibial pulse bilaterally. Many small varicosities visualized to both lower extremities. No peripheral edema present. Capillary refill is less than 3 seconds to all digits bilaterally. Light touch sensation is symmetrical to all lower extremity dermatomes. Babinski is downgoing. Skin has normal turgor and texture. There is a nummular plaque to the anterolateral aspect of the lower right leg that is hyperemic and has superficial scaling. The right and left hallux toenails have distal green to yellow discoloration with increased nail thickness and lysis. There is proximal clearance to both toenails. No pain with pressure to the nail plates. No discoloration to the surrounding nail folds. 5/5 strength for anterior, posterior, and lateral lower extremity muscle groups on the left and right.
--- OUTSIDE RECORDS SUMMARY | 2024-04-27 08:03 | XMS_ITS ---
Author Organization [facility] Address [address] [address] Care Team Providers Care Carpenter Cradle And Dolly Name Role Phone Lise Fiore Primary Care Provider Unavailab DAVID Rosales Unavailable [phone] REASON FOR VISIT nail culture results Social History Sex Assigned At : Social History Observation Description Sex Assigned At Female Encounters Encounter Location Date Provider Diagnosis [facility] [address] [address] 11/17/2022 DAVID HERMOSILLO Plan Of Treatment No Information Progress Notes * Marlene ALLENDOB:1975 ( 47 yo F)Acc No.[id number]:11/17/2022 Patient:?Marlene Allen :1975???Age:47 Y???Sex:Female Phone: Address:[address] [place] [phone] * true * Date:? Generated for Mervini jamel/Joey/eTransmitting on:?04/27/2024 08:03 AM EDT
--- OUTSIDE RECORDS SUMMARY | 2024-04-27 08:03 | XMS_ITS | Clinical Summary ---
[facility] Address [address] [place] [address] Care Team Providers Care Air Boatswain Name Role Phone Yanci Higgins MD Primary Care Provider [phone] Surgical History Surgery Date Site/Laterality Comments HYSTERECTOMY PROCEDURE: HISTORICAL HYSTERECTOMY; COMMENT: 2009. for ovarian cysts Medical History Medical History Date Comments Obesity 09/06/2010 DX:Obesity Depression 09/06/2010 DX:Depression Asthma 09/06/2010 DX:Asthma Joint pain 09/06/2010 DX:Joint pain Eczema 12/16/2010 DX:Eczema Family History Relation Name Status Comments Brother Alive substance abuse Daughter Alive Father heart problems Mother Alive arthritis Sister Alive Social History Tobacco Use Types Packs/Day Years Used Date Smoking Tobacco: Never Smokeless Tobacco: Never Alcohol Use Standard Drinks/Week Comments No 0 (1 standard drink = 0.6 oz pur e alcohol) Comments Unknown Sex and Gender Information Value Date Recorded Sex Assigned at Not on file Legal Sex Female 1:55 AM EST Gender Identity Not on file Sexual Orientation Not on file Obstetrics History Plan of Treatment Health Maintenance Due Date Last Done Comments Breast Cancer Screening 1975 Hepatitis B Vaccines (1 of 3 - 19+ 3-dose series) 1993 Cervical Cancer Screening: Pap Smear 10/28/1995 DTaP,Tdap,and Td Vaccines (2 - Td or Tdap) 02/24/2021 02/24/2011 COVID-19 Vaccine ( - season) 2023 Influenza Vaccine (#1) 2023 9, 11/03/2017, 11/24/2013, Additional history exists HIB Vaccines Aged Out No longer eligi ble based on patient's age to complete this topic HPV Vaccines Aged Out No longer eligi ble based on patient's age to complete this topic Hepatitis A Vaccines Aged Out No long er eligible based on patient's age to complete this topic IPV Vaccines Aged Out No longer eligi ble based on patient's age to complete this topic MMR Vaccines Aged Out No longer eligi ble based on patient's age to complete this topic Meningococcal ACWY Vaccine Aged Out N o longer eligible based on patient's age to complete this topic Meningococcal B Vacine Aged Out No lo nger eligible based on patient's age to complete this topic Pneumococcal Vaccine: Pediatrics (0 to 5 Years) and At-Risk Patients (6 to 64 Years) Aged Out No longer eligible based on patient's age to complete this topic RSV Immunization Patients Under 20 months Aged Out No longer eligible based on patient's age to complete this topic Varicella Vaccines Aged Out No longer eligible based on patient's age to complete this topic Care Teams Air Boatswain Relationship Specialty Start Date End Date Yanci Higgins MD PCP - General Internal Medicine 01/20/19
--- NOTE | 2024-04-27 08:04 | AM.OFFWIN_ITS ---
Intake Vital Signs 04/27/24 08:13 Weight 331 lb BP 130/86 Blood Pressure Location Lt brachial Position Sitting Pulse 76 Pulse Source Pulse Oximeter Temp 98.4 F Temp Source Oral Pulse Oximetry (%) 98 Oxygen Delivery Method Room Air Intake Visit Reasons: EP-sore rt ear & internal neck lump Intake Note: Patient here for lump in neck/swelling and is now having ear pain that has been present for about 1 week Patient Tobacco Use Status: Never used Tobacco Allergies Penicillins Allergy (Mild, Verified 04/27/24 08:11) Rash Shrimps Allergy (Intermediate, Uncoded 04/27/24 08:11) anaphylaxis Medication List - Last Reconciled 04/27/24 by Brandy Crawford MD albuterol sulfate 90 mcg/actuation 2 puffs inhalation Q6H PRN blood sugar diagnostic (FreeStyle Lite Strips) Use 1 test strip once a day blood-glucose meter (FreeStyle Lite Meter kit) As directed fluticasone propionate 50 mcg/actuation (Flonase Allergy Relief) 1 spray intranasal BID 30 days lancets (FreeStyle Lancets) Use 1 lancet once a day multivitamin 1 tab PO DAILY naproxen 500 mg PO BID PRN 30 days triamcinolone acetonide 0.5% 1 appl topical BID 2 weeks Ventolin HFA 90 mcg/actuation (albuterol sulfate) 2 puffs inhalation Q6H PRN 30 days NS Do you need a note to return to daycare/school/sports/work: No HPI EP-sore rt ear & internal neck lump HPI Details History - The patient is a 48-year-old female pr esenting with evaluation of right ear pain and chronic large lump under the chin left side for the past 1 year. She has now have developed another on the right side - The patient experiences an intermitten t twitching sensation in the right ear. - she has not discussed with the primary care regarding the lump but has appointment end of this month for physical exam - lump is nontender There is no fever chills sore throat or difficulty breathing Problem List - Chronic large lump under the chin left side and now also on the right side - Otalgia Patient Instructions - stat ultrasound ordered, referral to marino you placed as well - Start taking prescribed antibiotics fo r right ear discomfort as provided through the pharmacy. - Continue taking ibuprofen as needed fo r any additional discomfort. - Discuss results with Dr. Ricci at the scheduled appointment at the end of the month. Review of Systems - General: No fever no chills - Neurological: No headaches no dizziness - Ear nose throat: No sore throat no hearing difficulty - Cardiovascular: No syncope, no chest pain, no palpitations - Gastrointestinal: No nausea vomiting or diarrhea Physical Exam General: No acute distress HEENT: Right ear discomfort, no sore throat, palpable large lump under the chin left side and also now on the right side but smaller nontender, smooth round Neck: Supple Respiratory system: Able to talk in full sentences, no audible wheeze cardiovascular: S1-S2 regular in rate and rhythm Gastrointestinal: No pain Extremities: No new findings 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 HELPER: Alert awake oriented x3 motor sensory intact Skin: Normal turgor PFSH Medical History Transaminitis Polyarthralgia Bilateral primary osteoarthritis of knee Moderate recurrent major depression Eczema Fibromyalgia MAGNOLIA on CPAP Mild persistent asthma, uncomplicated KEVYN (generalized anxiety disorder) Morbid obesity due to excess calories Type 2 diabetes mellitus, without long-term current use of insulin Surgical History History of Achilles tendon repair History of hysterectomy Family History Mother Hypertension Hypothyroid Mental health disorder Father Sleep apnea Brother Substance use disorder Maternal Aunt Breast CA Maternal Aunt Skin cancer Son No problems noted. Daughter Headache Daughter Hypertension Social History Household Members: Spouse and Family Housing: House Do you presently have visiting nurse or other home services: No Alcohol intake: never Patient Tobacco Use Status: Never used Tobacco e-Cigarette/Vaping Use: Never Used Second Hand Smoke Exposure: No service: No Current occupational status: unemployed Cognitive needs: No Hearing needs: No Vision needs: No Female Reproductive History Menstrual Age of Menarche: 9 Physical Exam Vital Signs: Last Vital Signs Temp 98.4 F 04/27/24 08:13 Pulse 76 04/27/24 08:13 BP 130/86 04/27/24 08:13 Pulse Ox 98 04/27/24 08:13 Oxygen Delivery Method Room Air 04/27/24 08:13 Assessment & Plan Assessment & Plan (1) Localized swelling, mass and lump, neck: Code(s): R22.1 - Localized swelling, mass and lump, neck (2) Pain in right ear: Code(s): H92.01 - Otalgia, right ear Plan History - The patient is a 48-year-old female presenting with evaluation of right ear pain and chronic large lump under the chin left side for the past 1 year. She has now have developed another on the right side - The patient experiences an intermittent twitching sensation in the right ear. - she has not discussed with the primary care regarding the lump but has appointment end of this month for physical exam - lump is nontender There is no fever chills sore throat or difficulty breathing Problem List - Chronic large lump under the chin left side and now also on the right side - Otalgia Patient Instructions - stat ultrasound ordered, referral to surgeon placed as well - Start taking prescribed antibiotics for right ear discomfort as provided through the pharmacy. - Continue taking ibuprofen as needed for any additional discomfort. - Discuss results with Dr. Ricci at the scheduled appointment at the end of the month. Orders: Orders US soft tiss head and/or neck Today R22.1 - Localized swelling, mass and lump, neck Referrals General Surgery Referral R22.1 - Localized swelling, mass and lump, neck Medications: New azithromycin Take 2 tablets today then 1 daily 250 mg PO ONCE 5 days 6 tabs 0RF J06.9 - Acute upper respiratory infection, unspecified azithromycin Take 2 tablets today then 1 daily 250 mg PO ONCE 5 days 6 tabs 0RF J06.9 - Acute upper respiratory infection, unspecified Coding Level of Care Code Est Pt Level 4 (32588) Diagnoses Localized swelling, mass and lump, neck R22.1 Pain in right ear H92.01
[2024-04-27 08:13] VITALS: BP 130/86; PULSE 76; TEMP 36.9; O2SAT 98
== END 2024-04-27 08:21 | disposition home or self-care (01) ==
PROVIDERS: PCP Internal Medicine; Visit Provider Internal Medicine
DX: R22.1 Localized swelling, mass and lump, neck (principal); H92.01 Otalgia, right ear

== ENCOUNTER 2024-05-11 08:11 | Outpatient (AMB) | payer OTHER, SELFPAY ==
--- NOTE | 2024-05-11 08:35 | A.OFFPC_ITS ---
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: No Accompanied by: Self / Same As Patient Allergies Penicillins Allergy (Mild, Verified 05/11/24 09:08) Rash Shrimps Allergy (Intermediate, Uncoded 05/11/24 09:08) anaphylaxis Medication List - Last Reconciled 05/11/24 by Lise Voss MD albuterol sulfate 90 mcg/actuation 2 puffs inhalation Q6H PRN blood sugar diagnostic (FreeStyle Lite Strips) Use 1 test strip once a day blood-glucose meter (FreeStyle Lite Meter kit) As directed fluticasone propionate 50 mcg/actuation (Flonase Allergy Relief) 1 spray intranasal BID 30 days lancets (FreeStyle Lancets) Use 1 lancet once a day multivitamin 1 tab PO DAILY naproxen 500 mg PO BID PRN 30 days triamcinolone acetonide 0.5% 1 appl topical BID 2 weeks Ventolin HFA 90 mcg/actuation (albuterol sulfate) 2 puffs inhalation Q6H PRN 30 days NS Tobacco use date assessed: 05/11/24 Dental Screening Dental Screen Date: 05/11/24 Did you have a dental visit in the last 12 months?: Yes Did you have a dental problem in the last 6 months where you did not have access to dental care?: No Was dental information given to patient?: Patient has dentist HPI HPI Comments History of Present Illness Details The patient is a 48-year-old female presenting for her annual physical examination. She has a notable history of morbid obesity with a BMI of 50, which she manages with attempts at dietary modifications and elimination of sugars. Despite her efforts, achieving sustained weight loss has been challenging, compounded by language barriers in certain programs. She also has Type 2 Diabetes Mellitus, managed primarily through dietary modifications rather than pharmacotherapy. This approach had shown initial success, but relapse into non- adherence occurs, particularly during periods of stress. In the context of her history, she experiences significant depressive symptoms, attributed to personal and familial stressors. She denies suicidality and manages her depression by adapting her lifestyle, including dietary changes, as pharmacologic treatment previously worsened her symptoms. The patient is allergic to penicillin and shrimp, reporting anaphylactic reactions with the latter. As for her past surgical history, she has undergone a hysterectomy with bilateral oophorectomy for large ovarian masses, as well as tendon repair. She is scheduled for an additional sonogram following previous benign breast biopsy. Her family history includes her father having sleep apnea and her mother with hypertension and thyroid disease, but no significant history of substance abuse. - Tetanus vaccination is due (last admin istration was in 2011). - Recall for mammography screening, last screening done in 2022. - Scheduled for a sonogram to follow up on previous breast biopsy results. - Encourage dietary management and weigh t loss strategies to address obesity. - Discussed risk reduction for diabetes through continued dietary adherence. - Advised against using Ozempic for weig ht loss as not covered without cardiovascular conditions. [facility] Medical History (Updated 05/11/24 @ 13:14 by Lise Voss MD) Moderate recurrent major depression Transaminitis Polyarthralgia Bilateral primary osteoarthritis of knee Eczema Fibromyalgia MAGNOLIA on CPAP Mild persistent asthma, uncomplicated KEVYN (generalized anxiety disorder) Morbid obesity due to excess calories Type 2 diabetes mellitus, without long-term current use of insulin Surgical History (Updated 05/11/24 @ 09:13 by Lise Voss MD) H/O breast biopsy History of Achilles tendon repair History of hysterectomy Family History (Updated 05/11/24 @ 09:15 by Lise Voss MD) Mother Hypertension Hypothyroid Father Sleep apnea Brother Substance use disorder Maternal Aunt Breast CA Maternal Aunt Skin cancer Son No problems noted. Daughter Headache Daughter Hypertension Social History Household Members: Spouse and Family Housing: House Do you presently have visiting nurse or other home services: No Alcohol intake: never Patient Tobacco Use Status: Never used Tobacco e-Cigarette/Vaping Use: Never Used Second Hand Smoke Exposure: No service: No Current occupational status: unemployed Cognitive needs: No Hearing needs: No Vision needs: No Female Reproductive History Menstrual Age of Menarche: 9 Questionnaire PHQ-9 Over the last 2 weeks, how often have you been bothered by any of the following problems? 1. Little interest or pleasure in doing things: nearly every day 2. Feeling down, depressed, or hopeless: more than half the days 3. Trouble falling or staying asleep, or sleeping too much: nearly every day 4. Feeling tired or having little energy: nearly every day 5. Poor appetite or overeating: more than half the days 6. Feeling bad about yourself - or that you are a failure or have let yourself or your family down: nearly every day 7. Trouble concentrating on things, such as reading the newspaper or watching television: not at all 8. Moving or speaking so slowly that other people could have noticed. Or the opposite - being so fidgety or restless that you have been moving around a lot more than usual: nearly every day 9. Thoughts that you would be better off or of hurting yourself in some way: not at all Total score: 19 Depression Screening Interpretation: Positive (no suicidal thoughts, no hallucinations) Depression Screening Follow-up: Existing condition, Follow-up Visit Requested and Declines treatment Depression Screening Done: Yes 49206 - PHQ-9 Billing: Yes Source: Developed by Drs. Watson Hester, Carlene Robledo, Jonathan Shell and colleagues, with an educational matthew from [employer]. Thrive Questionnaire Date Thrive assessed: 05/11/24 I am a: Patient What is your living situation today?: I have a steady place to live Within the past 12 months, did the food you bought not last and you didn't have the money to get more?: I choose not to answer this question Within the past 12 months, did you worry whether your food would run out before you got money to buy more?: I choose not to answer this question Do you have trouble paying for medicines?: I choose not to answer this question Do you have trouble getting transportation to medical appointments?: No Do you have trouble paying your heating and electricity bill?: No Do you have trouble taking care of your child, family member or friend?: No Do you have trouble with day-to-day activities such as bathing, preparing meals, shopping, managing finances, etc.?: No Are you currently unemployed and looking for a job?: No Are you interested in more education?: No Please select the resources that you would like help with: None Currently or been in a relationship where the following occur: No concerns reported THRIVE Score: 0 AUDIT C Alcohol Use Questionnaire (AUDIT-C) 1. How often do you have a drink containing alcohol?: Never Total Score: 0 Score Reviewed/Action Taken: No KEVYN-7 AMB Questionnaire KEVYN-7 Date KEVYN - 7 assessed: 05/11/24 Feeling nervous, anxious, or on edge: 3 = Nearly every day Not being able to stop or control worryin = Not at all Worrying too much about different things: 2 = More than half the days Trouble relaxin = More than half the days Being so restless that it is hard to sit still: 2 = More than half the days Becoming easily annoyed or irritable: 3 = Nearly every day Feeling afraid as if something awful might happen: 0 = Not at all Total KEVYN-7 score (0-4 normal; 5-9 mild; 10-14 moderate; 15-21 severe): 12 Source: Developed by Drs. Watson Hester, Carlene Robledo, Jonathan Shell and colleagues, with an educational matthew from [employer]. KEVYN-7 Assessment Billing KEVYN-7 Assessment Tool: KEVYN-7 Assessment 22729 Review of Systems Const All systems reviewed & are unremarkable except as noted in HPI and below Card Denies chest pain at rest, Denies chest pain with activity, Denies edema, Denies irregular heart rhythm, Denies claudication, Denies dyspnea, Denies dyspnea on exertion, Denies orthopnea, Denies paroxysmal nocturnal dyspnea and Denies slow heart rate Resp Denies cough, Denies dyspnea and Denies dyspnea on exertion GI Denies abdominal pain, Denies change in bowel habits, Denies excessive flatus, Denies nausea and Denies vomiting Neuro Denies lack of coordination Psych Reports abnormal sleep pattern, Reports anxiety and Reports depression Physical exam (Primary Care) Vital Signs: Last Vital Signs BP 132/86 05/11/24 08:37 BMI result Body Mass Index 50.7 BMI Assessment/Plan discussion: High BMI High, discussed plan: lifestyle, weight reduction, dietary and physical activity Tobacco/Smoking Status: Tobacco use Status Tobacco use date assessed 05/11/24 05/11/24 08:42 Patient Tobacco Use Status Never used Tobacco 05/11/24 08:42 e-Cigarette/Vaping Use Never Used 05/11/24 08:42 PHQ-9: PHQ-9 Score PHQ-9: Total score 19 05/11/24 09:31 Depression Screening Interpretation: Positive (no suicidal thoughts, no bryon lucinations) Depression Screening Follow-up: Existing condition, Follow-up Visit Requested and Declines treatment Thrive Assessment: Date of Thrive Assessment Date Thrive assessed 05/11/24 05/11/24 08:42 Currently or been in a relationship where the following occur: No concerns reported [facility] Head: Yes normal to inspection, Yes normocephalic and Yes atraumatic Ears: external ears normal Eyes General: appearance normal, both eyes and all related structures Eyelids: Yes eyelids normal Conjunctivae: conjunctivae normal Neck Neck: Yes normal visual inspection and Yes supple Resp Effort & Inspection: normal respiratory effort Auscultation: clear to auscultation bilaterally Cardio Jugular venous distension: no JVD Rate: regular rate Rhythm: regular rhythm Heart sounds: S1 normal heart sound present and S2 normal heart sound present GI Inspection: Yes normal to inspection Palpation (GI): Soft to palpation and nontender Auscultation: normal bowel sounds Skin General skin exam: no rashes or lesions noted Neuro General: no focal motor deficits Extrem General: Yes full ROM Psych Appearance: grossly normal Immunizations Boostrix Tdap 2.5 Lf unit-8 mcg-5 Lf/0.5 mL intramuscular syringe Performing Provider: Lise Voss MD [facility] Administered by: AMBROCIO Bhat on 05/11/24 09:31 Dose Route Admin Location Dispensed Lot Number Expiration Date NDC Craft Manager 0.5 mL IM Left Deltoid 0.5 mL [id number] 07/30/26 91349-405-05 [facility] Given Date VIS Provided VIS Publication Date 05/11/24 Single Vaccine 20 Eligibility Eligibility Date Funding Source Not [facility] Eligible 05/11/24 Private Coding Level of Care Code Est Pt Prev Care 40-64y(63207) Diagnoses Physical exam Z00.00 Morbid obesity due to excess calories E66.01 Moderate recurrent major depression F33.1 Additional Codes KEVYN-7 Assessment Billing - KEVYN-7 Assessment Tool: KEVYN-7 Assessment 40318 ([id number]) PHQ-9 - 47003 - PHQ-9 Billing: Yes ([id number]) Time Spent (min) 33 Assessment & Plan Assessment & Plan (1) Physical exam: Code(s): Z00.00 - Encounter for general adult medical examination without abnormal findings Category: Medical (2) Morbid obesity due to excess calories: Code(s): E66.01 - Morbid (severe) obesity due to excess calories Category: Medical (3) Moderate recurrent major depression: Code(s): F33.1 - Major depressive disorder, recurrent, moderate Category: Medical Plan During the visit, I focused on addressing the patient's management of morbid obesity by emphasizing the importance of dietary interventions and considering structured programs compatible with her language skills. For her Type 2 Diabetes Mellitus, I emphasized dietary adherence to improve control. Noting her allergies, I reviewed current inhaler and nasal spray management. For health maintenance, I recommended an updated tetanus vaccine and referred her for overdue mammography, acknowledging the upcoming sonogram for breast health monitoring. I discussed non-pharmacologic interventions for her depression in light of her reported side effects. Follow-up was advised if she experiences any changes in her clinical status. Patient was informed and verbally consented to the use of an ambient scribe for clinic note documentation during this visit. I discussed with the patient the management of her morbid obesity, highlighting dietary strategies and options like Ozempic, though noting its restriction in her insurance plan without cardiovascular conditions. For her diabetes management, I emphasized dietary modification and the importance of continued evaluation of her blood sugar levels. Regarding her allergies, I highlighted adherence to avoiding allergens and using her inhalers and nasal spray as prescribed. We talked about her mental health, emphasizing the importance of lifestyle changes over medication given her previous adverse reactions to antidepressants. Health maintenance was covered, including the necessity for tetanus vaccination and rescheduling her mammogram. I provided supportive strategies for personal stress management, acknowledging her significant family- related stressors, and ensured her understanding of follow-up recommendations and potential return signs that would necessitate earlier consultation. Orders: Orders Lipid Panel Today E78.5 - Hyperlipidemia, unspecified, Z00.00 - Encounter for general adult medical examination without abnormal findings Comprehensive [place]. Panel Fast Today Z00.00 - Encounter for general adult medical examination without abnormal findings TDaP Immunization Today Z23 - Encounter for immunization MM tomosynthesis screening BI Today Z12.31 - Encounter for screening mammogram for malignant neoplasm of breast Referrals Cologuard Test Z12.11 - Encounter for screening for malignant neoplasm of colon, Z12.12 - Encounter for screening for malignant neoplasm of rectum Patient Instructions: - Follow dietary recommendations and attempt structured programs for weight management. - Be consistent with dietary management to control diabetes. - Avoid penicillin and shrimp due to severe allergies. - Ensure up-to-date tetanus vaccination. - Schedule and complete mammography. - Proceed with upcoming sonogram as planned. - Practice stress management techniques and consider talking to a mental health professional if symptoms of depression persist. - Contact the office if any allergic reaction symptoms or other concerning health issues arise.
[2024-05-11 08:37] VITALS: BP 132/86; BMI 50.7
== END 2024-05-11 09:38 | disposition home or self-care (01) ==
LOC: HO.HMCH 08:12
PROVIDERS: PCP Internal Medicine; Visit Provider Internal Medicine
DX: Z00.00 Encounter for general adult medical examination without abnormal findings (principal); E66.01 Morbid (severe) obesity due to excess calories; F33.1 Major depressive disorder, recurrent, moderate; Z68.43 Body mass index [BMI] 50.0-59.9, adult; Z23 Encounter for immunization

== ENCOUNTER → 2024-05-11 08:11 | Outpatient (BNVA) | payer OTHER, SELFPAY | PROVIDERS: PCP Internal Medicine; Visit Provider Internal Medicine | DX: Z00.00 Encounter for general adult medical examination without abnormal findings (principal); Z23 Encounter for immunization; E66.01 Morbid (severe) obesity due to excess calories; Z68.43 Body mass index [BMI] 50.0-59.9, adult; F33.1 Major depressive disorder, recurrent, moderate | CPT/HCPCS: 90471; 90715; 96127 ==

== ENCOUNTER 2024-05-18 08:07 | Outpatient (AMB) | payer OTHER, SELFPAY ==
--- NOTE | 2024-05-18 08:13 | MHC.OFFVIS ---
Intake Visit Reasons: Lump~ lt chin Intake Note: Patient referred by pcp Dr. Radhames Voss for lump on under rt and lt jawline. Present for 1yr. Hx of surgery on same area as a child. Patient c/o: denies pain, tenderness to touch. Feels weird. Air Chipper Required: No Accompanied by: Self / Same As Patient Allergies Penicillins Allergy (Mild, Verified 05/18/24 08:18) Rash Shrimps Allergy (Intermediate, Uncoded 05/18/24 08:18) anaphylaxis HPI Comments Details: Patient presents for evaluation of a large soft tissue mass involving the left up per anterior neck and a smaller 1 involving the right submandibular area. She was unclear as to how long these have been present but definitely beyond the last several months time. She presents here for further evaluation. She has no such lumps or masses elsewhere. Patient denies any fever, chills, night sweats, weight loss. Chart was reviewed and patient evaluated. She stated and her youth that she had some sort of an anterior neck mass excision but is unclear of what that was for. [facility] Medical History (Updated 05/11/24 @ 13:14 by Lise Voss MD) Moderate recurrent major depression Transaminitis Polyarthralgia Bilateral primary osteoarthritis of knee Eczema Fibromyalgia MAGNOLIA on CPAP Mild persistent asthma, uncomplicated KEVYN (generalized anxiety disorder) Morbid obesity due to excess calories Type 2 diabetes mellitus, without long-term current use of insulin Surgical History (Updated 05/18/24 @ 08:31 by Obie Moctezuma MD) H/O breast biopsy History of Achilles tendon repair History of hysterectomy Family History (Updated 05/11/24 @ 09:15 by Lise Voss MD) Mother Hypertension Hypothyroid Father Sleep apnea Brother Substance use disorder Maternal Aunt Breast CA Maternal Aunt Skin cancer Son No problems noted. Daughter Headache Daughter Hypertension Social History Household Members: Spouse and Family Housing: House Do you presently have visiting nurse or other home services: No Alcohol intake: never Patient Tobacco Use Status: Never used Tobacco e-Cigarette/Vaping Use: Never Used Second Hand Smoke Exposure: No service: No Current occupational status: unemployed Cognitive needs: No Hearing needs: No Vision needs: No Female Reproductive History Menstrual Age of Menarche: 9 Physical Exam Const Other: Very pleasant corpulent female Neck Other: Patient was a large left anterior upper neck soft tissue mass measuring roughly 8 x 6 cm. She has a smaller right submandibular mass measuring 2 x 3 cm. No other periclavicular cervical or groin adenopathy appreciated. Chest Other: Chest breath sounds bilaterally Assessment & Plan Assessment & Plan (1) Localized swelling, mass and lump, neck: Code(s): R22.1 - Localized swelling, mass and lump, neck Category: Surgical Plan Patient is tentatively scheduled for ultrasound of her neck note for this Thursday. She will see me early next week to review the results of this and help direct further studies and interventions based on these results. All questions answered. Coding Level of Care Code New Pt Level 4 (34587) Diagnoses Localized swelling, mass and lump, neck R22.1
--- OUTSIDE RECORDS SUMMARY | 2024-05-18 08:16 | XMS_ITS | Clinical Summary ---
Author Organization [facility] Address [address] [place] [address] Care Team Providers Care Item Repair Manager Name Role Phone Yanci Higgins MD Primary Care Provider Surgical History Surgery Date Site/Laterality Comments HYSTERECTOMY [...] age to complete this topic Care Teams Item Repair Manager Relationship Specialty Start Date End Date Yanci Higgins MD PCP - General Internal Medicine 01/20/19
--- OUTSIDE RECORDS SUMMARY | 2024-05-18 08:16 | XMS_ITS | Encounter Summary ---
Author Organization [facility] Address [address] [place] [address] Care Team Providers Care Copy Clerk Name Role Phone Anisha Martinez DO Primary Care Pro vider Unavailable Ama Riggs MD Primary Care Provider Un available Darrell Ag MD Primary Care Provide r Unavailable Ama Riggs MD Primary Care Provider Un available Yanci Higgins MD Primary Care Provider Unavail able Encounter Details Date Type Department Care Team Description 03/13/2015 REPOSSESSOR/[place] Report Medical Records [address] [place] [address] Abstract, Provider Social History Tobacco Use Types Packs/Day Years Used Date Smoking Tobacco: Never Smokeless Tobacco: Never Alcohol Use Standard Drinks/Week Comments No 0 (1 standard drink = 0.6 oz pur e alcohol) Sex Assigned at Date Recorded Not on file documented as of this encounter Plan of Treatment Not on file documented as of this encounter Visit Diagnoses Not on filedocumented in this encounter Care Teams Copy Clerk Relationship Specialty Start Date End Date Anisha Martinez DO PCP - General Internal Medicine 02/26/15 05/27/15 Ama Riggs MD PCP - General Internal Medicine 05/28/15 Darrell Ag MD PCP - General Internal Medicine 08/18/17 Ama Riggs MD PCP - General Internal Medicine 10/06/17 Yanci Higgins MD PCP - General Internal Medicine 01/20/19 documented as of this encounter
--- OUTSIDE RECORDS SUMMARY | 2024-05-18 08:16 | XMS_ITS | Clinical Summary ---
Author Organization [facility] Address [address] [place] [address] Care Team Providers Care Verse Writer Name Role Phone Yanci Higgins MD Primary Care Provider Unavail able Allergies Active Allergy Reactions Severity Noted Date Comments Penicillins Rash/Dermatitis 04/08/2017 Shrimp Anaphylaxis High 03/06/2015 Medications Medication Sig Dispensed Refills Start Date End Date Status CPAP Historical (HISTORICAL CPAP) 12 cm by Nasal route at bedtime. Regional pressure 6-16 0 Active Blood Glucose Monitoring Suppl (ONE TOUCH ULTRA SYSTEM KIT) W/DEVICE Kit Test blood sugars twice daily 1 Kit 0 06/29/2014 Active ONETOUCH DELICA LANCETS FINE Misc 1 Each by Does not apply route 2 times daily. 100 Each 2 06/29/2014 Active glucose blood test strips (ONE TOUCH ULTRA TEST STRIPS) strip 1 Strip by Does not apply route 2 times daily. Please prescribe as One Touch Ultra brand, thank you. 100 Strip 2 04/10/2017 Active fluticasone (FLONASE) 50 MCG/ACT nasal spray 2 Sprays by Nasal route daily for 30 days. 1 Bottle 1 06/21/2018 Active acetaminophen (TYLENOL) 500 MG tablet Take 1 Tab by mouth every 6 hours as needed for Pain for up to 10 days. 30 Tab 0 08/23/2019 Active duloxetine (CYMBALTA) 60 MG capsule Take 2 Caps by mouth daily. 90 Cap 0 09/26/2019 Active prazosin (MINIPRESS) 1 MG capsule Take 1 Cap by mouth at bedtime. 30 Cap 11 09/26/2019 Active busPIRone (BUSPAR) 7.5 MG tablet Take 1 Tab by mouth daily. 30 Tab 11 09/26/2019 Active meloxicam (MOBIC) 15 MG tablet Take 1 Tab by mouth daily. 30 Tab 5 10/11/2019 Active Ventolin HFA 108 (90 Base) MCG/ACT Aero Soln INHALE 2 PUFFS INTO LUNGS 4 TIMES DAILY NEEDED FOR COUGH, WHEEZING, AND SHORTNESS OF BREATH 18 g 0 07/03/2020 Active Active Problems Problem Noted Date Prediabetes 11/03/2017 Elevated alkaline phosphatase level 09/17 Anxiety 10/06/2017 Morbid obesity with BMI of 45.0-49.9, ad ult 06/06/2015 Surgical menopause 06/06/2015 Diabetes mellitus type 2 in obese 2014 Fatty liver 07/09/2012 Panic attack 06/07/2012 Claustrophobia 06/07/2012 Obstructive sleep apnea mild AHI 10 06/16 Overview: w hypoventilation, fixed w CPAP 14 SMS Home Polysomnogram: Date 10/01/2017; AHI 10, Unclassified apneas 0; Obstructive apneas 0; Central apneas 0; Mixed apneas 0; hypopneas 54; average oxygen saturation 96% (lowest 91% without saturations <88% for 5% or more of study) - Obstructive Sleep Apnea - mild; all hypopneas; without sleep related hypoventilation by 2018 home polysomnogram. Fibromyalgia 04/15/2011 Eczema 12/16/2010 Obesity 09/06/2010 Depression 09/06/2010 Asthma 09/06/2010 Overview: Mild. Rarely requires the use of albuterol Immunizations Name Administration Dates Next Due Influenza (> 6 Months) 11/24/2013,12/19/2011 Influenza Vaccine-preservati ve Free-quadrivalent 4 Years 11/02/2018 Influenza Vaccine-quadrivalent 4 Years Plus 10/17 Tdap 02/24/2011 Family History Relation Name Status Comments Brother Alive substance abuse Daughter Alive Father heart problems Mother Alive arthritis Sister Alive Social History Tobacco Use Types Packs/Day Years Used Date Smoking Tobacco: Never Smokeless Tobacco: Never Alcohol Use Standard Drinks/Week Comments No 0 (1 standard drink = 0.6 oz pur e alcohol) Sex Assigned at Date Recorded Not on file Last Filed Vital Signs Vital Sign Reading Time Taken Comments Blood Pressure 94/62 09/26/2019 9:50 AM EDT Pulse 82 09/26/2019 9:50 AM EDT Temperature 36.5 ??C (97.7 ??F) 09/26/2019 9:50 AM ED T Respiratory Rate 16 09/26/2019 9:50 AM EDT Oxygen Saturation 97% 06/21/2018 8:47 AM EDT Inhaled Oxygen Concentration - - Weight 154.7 kg (341 lb) 09/26/2019 9:50 AM EDT Height 170.2 cm (5' 7 ) 09/26/2019 9:50 AM EDT Body Mass Index 53.41 09/26/2019 9:50 AM EDT Plan of Treatment Health Maintenance Due Date Last Done Comments Covid-19 Vaccine (#1) 04/27/1975 DIABETES: ANNUAL EYE EXAM 1992 DIABETES: ANNUAL URINE PROTE IN TEST (MICROALBUMIN) 1992 PNEUMOCOCCAL VACCINE FOR HIG H RISK PATIENTS (#1) 1993 CERVICAL CANCER SCREENING 09/06/2013 09/06/2010 (Exc eption) BASELINE HEALTH EXAM 40-64 10/27/201403/09, 02/24/2011, 03/18/2005, Additional history exists MAMMOGRAM 2014 DIABETES: BLOOD SUGAR CONTRO L TEST (HGBA1C) 01/08/2018 10/08/2017, 01/21/2016, 08/24/2014, Additional history exists DIABETES: ANNUAL FOOT EXAM 05/04/201805/04 (Completed), 05/04/2017, 02/07/2016 DIABETES/HEART DISEASE: PARMJIT AL CHOLESTEROL (LDL) 09/26/2020 09/27/2019, 06/27/2014, 03/09/2011, Additional history exists DTAP/TDAP/TD (2 - Td or Tdap) 02/24/2021 02/24/2011 BMI CHECK/ADVISE 02/17/2024 09/26/2019, , 01/06/2018, Additional history exists DEPRESSION SCREENING/FOLLOWUP 02/17/2024, 04/15/2019, 12/12/2018, Additional history exists SOCIAL NEEDS SCREENING 02/17/2024 INFLUENZA (Season Ended) 2024 019, 11/03/2017, 11/24/2013, Additional history exists Care Teams Verse Writer Relationship Specialty Start Date End Date Yanci Higgins MD PCP - General Internal Medicine 01/20/19
--- OUTSIDE RECORDS SUMMARY | 2024-05-18 08:16 | XMS_ITS | Encounter Summary ---
Author Organization [facility] Address [address] [place] [address] Care Team Providers Care Stock Saw Operator Name Role Phone Name, Murtaza NESS Primary Care Provider Unavailabl e Anisha Martinez DO Primary Care Pro vider Unavailable Ama Riggs MD Primary Care Provider Un available Darrell gA MD Primary Care Provide r Unavailable Ama Riggs MD Primary Care Provider Un available Yanci Higgins MD Primary Care Provider Unavail able Encounter Details Date Type Department Care Team Description 06/28/2013 Hospital Medical Records [address] [place] [address] Hernesto Yee MD Social History Tobacco Use Types Packs/Day Years [...] on filedocumented in this encounter Care Teams Stock Saw Operator Relationship Specialty Start Date End Date Name, MD Murtaza PCP - General 08/20/10 02/25/15 Anisha Martinez DO PCP - General Internal Medicine 02/26/15 05/27/15 Ama Riggs MD PCP - General Internal Medicine 05/28/15 8 Darrell Ag MD PCP - General Internal Medicine 08/18/17 Ama Riggs MD PCP - General Internal Medicine 10/06/17 Yanci Higgins MD PCP - General Internal Medicine 01/20/19 documented as of this encounter
--- OUTSIDE RECORDS SUMMARY | 2024-05-18 08:16 | XMS_ITS | Encounter Summary ---
Author Organization [facility] Address [address] [place] [address] Care Team Providers Care Yacht Master Name Role Phone Ama Riggs MD Primary Care Provider Un available Darrell Ag MD Primary Care Provide r Unavailable Ama Riggs MD Primary Care Provider Un available Yanci Higgins MD Primary Care Provider Unavail able Encounter Details Date Type Department Care Team Description 05/26/2016 Cracker Sprayer Report Medical Records [address] [place] [address] Gerry Lee DPM Social History Tobacco Use Types Packs/Day Years [...] on filedocumented in this encounter Care Teams Yacht Master Relationship Specialty Start Date End Date Ama Riggs MD PCP - General Internal Medicine 05/28/15 8 Darrell Ag MD PCP - General Internal Medicine 08/18/17 Ama Riggs MD PCP - General Internal Medicine 10/06/17 Yanci Higgins MD PCP - General Internal Medicine 01/20/19 documented as of this encounter
--- OUTSIDE RECORDS SUMMARY | 2024-05-18 08:16 | XMS_ITS | Encounter Summary ---
Author Organization [facility] Address [address] [place] [address] Care Team Providers Care Auto Glass Technician Name Role Phone Murtaza Salcedo MD Primary Care Provider Unavailabl e Anisha Martinez DO Primary Care Pro vider Unavailable Ama Riggs MD Primary Care Provider Un available Darrell Ag MD Primary Care Provide r Unavailable Ama Riggs MD Primary Care Provider Un available Yanci Higgins MD Primary Care Provider Unavail able Reason for Visit * Reason Onset Date Comments Error 11/23/2013 opened in error Encounter Details Date Type Department Care Team Description 11/23/[address] [address] Name, MD Murtaza Error (opened in error ) Social History Tobacco Use Types Packs/Day Years [...] on filedocumented in this encounter Care Teams Auto Glass Technician Relationship Specialty Start Date End Date Murtaza Salcedo MD PCP - General 08/20/10 02/25/15 Anisha Martinez [...]
--- OUTSIDE RECORDS SUMMARY | 2024-05-18 08:16 | XMS_ITS | Encounter Summary ---
Author Organization [facility] Address [address] [place] [address] Care Team Providers Care Work Measurement Engineer Name Role Phone Murtaza Payne MD Primary Care Provider Unavailabl e Anisha Martinez DO Primary Care Pro vider Unavailable Ama Riggs MD Primary Care Provider Un available Darrell Ag MD Primary Care Provide r Unavailable Ama Riggs MD Primary Care Provider Un available Yanci Higgins MD Primary Care Provider Unavail able Reason for Visit * Reason Onset Date Comments APPOINTMENT 04/28/2014 Encounter Details Date Type Department Care Team Description 04/28/2014 Telephone Adult Medicine [address] [address] Matias, MD Murtaza APPOINTMENT Social History Tobacco Use Types Packs/Day Years Used Date Smoking Tobacco: Never Smokeless Tobacco: Never Alcohol Use Standard Drinks/Week Comments No 0 (1 standard drink = 0.6 oz pur e alcohol) Sex Assigned at Date Recorded Not on file documented as of this encounter Miscellaneous Notes * Telephone Encounter - Ana Martinez R.N. - 05/05/2014 12:38 PM EDT Pt booked for 06/[address] payne Asking for refill on flexeril unitl she is seen * Telephone Encounter - Ana Martinez R.N. - 04/28/2014 4:47 PM EDT I left a message for the patient to return my call. * Telephone Encounter - Shanna Lay - 04/28/2014 3:44 PM EDT Symptoms patient is presenting: fibromyalgia, arthritis, questioning diabetes. Multiple issues, looking for appt during [place], [address] How long has patient had these symptoms?: PCP: Murtaza [place] / Product Type: [place] [id number] documented in this encounter Plan of Treatment Not on file documented as of this encounter Visit Diagnoses Diagnosis Depression Depressive disorder, not elsewhere classified Fibromyalgia Mylagia and myositis, unspecified documented in this encounter Care Teams Work Measurement Engineer Relationship Specialty Start Date End Date Name, [...]
--- OUTSIDE RECORDS SUMMARY | 2024-05-18 08:16 | XMS_ITS | Encounter Summary ---
Author Organization [facility] Address [address] [place] [address] Care Team Providers Care Embossed Or Impressed Lettering Painter Name Role Phone Matias, Murtaza NESS Primary Care Provider Unavailabl e Anisha Martinez DO Primary Care Pro vider Unavailable Ama Riggs MD Primary Care Provider Un available Darrell Ag MD Primary Care Provide r Unavailable Ama Riggs MD Primary Care Provider Un available Yanci Higgins MD Primary Care Provider Unavail able Reason for Visit * Reason Onset Date Comments flu symptoms 03/18/2013 Encounter Details Date Type Department Care Team Description 03/18/2013 Telephone Adult Medicine [address] [address] Name, MD Murtaza flu symptoms Social History Tobacco Use Types Packs/Day Years Used Date Smoking Tobacco: Never Smokeless Tobacco: Never Alcohol Use Standard Drinks/Week Comments No 0 (1 standard drink = 0.6 oz pur e alcohol) Sex Assigned at Date Recorded Not on file documented as of this encounter Miscellaneous Notes * Telephone Encounter - Ana Martinez R.N. - 03/18/2013 9:19 AM EST Pt has had cough, headache and felt tired with flu like symptoms for 5 Days, has been working untiltoday when symptoms suddenly got worse and she feels she now has the 'real flu C/O chest wall pain with deep breath and cough, denies SOB, able to speak in full sentences and hasno audible wheezing, using inhalers as directed with relief, cough is productive for green Sputum, feels she has a fever (has not taken temp) able to take PO with no difficulty, denies N/V/D, has nasal congestion Advised home care following the Cough, fever Protocol. RN reinforced telephone consultation and advice. Reviewed with the patient the signs and symptoms to watch for that would require immediate attention. If symptoms change, worsen or increase in intensity, to call back immediately. Pt needs an inhaler, she will use home care measures and call if she is not better to be seen over the weekend * Telephone Encounter - Rosmery Wayne - 03/18/2013 8:41 AM EST Symptoms patient is presenting: flu symptoms, pt also has fever, progressively getting worse How long has patient had these symptoms?: one week PCP: Murtaza Name Payor: [employer] Plan: [employer] $[id number] Product Type: MEDICAID [id number] documented in this encounter Plan of Treatment Not on file documented as of this encounter Visit Diagnoses Not on filedocumented in this encounter Care Teams Embossed Or Impressed Lettering Painter Relationship Specialty Start Date End Date Name, [...]
--- OUTSIDE RECORDS SUMMARY | 2024-05-18 08:17 | XMS_ITS | Encounter Summary ---
Author Organization [facility] Address [address] [place] [address] Care Team Providers Care Risk Management Specialist Name Role Phone Ama Riggs MD Primary Care Provider Un available Yanci Higgins MD Primary Care Provider Unavail able Reason for Visit * Reason Comments E-prescribe Rx Request Encounter Details Date Type Department Care Team Description 05/12/2018 Refill Adult Medicine [address] [address] Lilian Stewart PA-C E-prescribe Rx Request Social History Tobacco Use Types Packs/Day Years Used Date Smoking Tobacco: Never Smokeless Tobacco: Never Alcohol Use Standard Drinks/Week Comments No 0 (1 standard drink = 0.6 oz pur e alcohol) Sex Assigned at Date Recorded Not on file documented as of this encounter Miscellaneous Notes * Telephone Encounter - Nikki Dowell M.A. - 05/13/2018 9:17 AM EDT Lab Results Component Value Date ALB 4.1 12/29/2017 SGOT 21 12/29/2017 SGPT 22 12/29/2017 TBILI 0.2 12/29/2017 DBILI 0.1 12/29/2017 IBILI 0.1 12/29/2017 ALKPHOS 143 12/29/2017 TP 7.2 12/29/2017 * Telephone Encounter - Scarlet Gutierrez - 05/13/2018 9:05 AM EDT Patient would like script to be: E-PRESCRIBED/FAXED TO PHARMACY WHEN WAS THE PATIENT'S LAST APPOINTMENT IN ADULT MEDICINE? 11/03/17 WHEN WAS THE LAST TIME THE PATIENT SAW THEIR PCP? Hasn't seen yet Does patient have an upcoming appointment? No[facility] to refill request. Appt due (THE MEDICATION REQUESTED IS ON THE MED LIST ABOVE) All of the medications requested were on the CURRENT MEDS list Did you check the Pharmacy information above?: YES Patient wants: 30 -day supply Is this a mail order prescription request ? NO If the refill is from a FAXED refill request what is the RX # listed on the fax? N/A Patients current insurance carrier is: [facility] / Plan: [facility] SILVER TYPE 3 / Product Type: HMO [id number] documented in this encounter Plan of Treatment Not on file documented as of this encounter Visit Diagnoses Not on filedocumented in this encounter Care Teams Risk Management Specialist Relationship Specialty Start Date End Date Ama Riggs MD PCP - General Internal Medicine 10/06/17 Yanci Higgins MD PCP - General Internal Medicine 01/20/19 documented as of this encounter
--- OUTSIDE RECORDS SUMMARY | 2024-05-18 08:17 | XMS_ITS | Encounter Summary ---
Author Organization [facility] Address [address] [place] [address] Care Team Providers Care Director Embalmer Name Role Phone Murtaza Salcedo MD Primary Care Provider Unavailabl e Anisha Martinez DO Primary Care Pro vider Unavailable Ama Riggs MD Primary Care Provider Un available Darrell Ag MD Primary Care Provide r Unavailable Ama Riggs MD Primary Care Provider Un available Yanci Higgins MD Primary Care Provider Unavail able Reason for Visit * Reason Onset Date Comments Faxed Order 11/17/2013 Encounter Details Date Type Department Care Team Description 11/17/2013 Telephone Adult Medicine [address] [address] Name, MD Murtaza Faxed Order Social History Tobacco Use Types Packs/Day Years Used Date Smoking Tobacco: Never Smokeless Tobacco: Never Alcohol Use Standard Drinks/Week Comments No 0 (1 standard drink = 0.6 oz pur e alcohol) Sex Assigned at Date Recorded Not on file documented as of this encounter Miscellaneous Notes * Telephone Encounter - Carlota Villaseñor - 11/17/2013 3:18 PM EDT Please review and sign Fax to [phone] documented in this encounter Plan of Treatment Not on file documented as of this encounter Visit Diagnoses Not on filedocumented in this encounter Care Teams Director Embalmer Relationship Specialty Start Date End Date Matias, MD Murtaza PCP - General 08/20/10 02/25/15 [...]
--- OUTSIDE RECORDS SUMMARY | 2024-05-18 08:17 | XMS_ITS | Encounter Summary ---
Author Organization [facility] Address [address] [place] [address] Care Team Providers Care Pocketed Spring Assembler Name Role Phone Matias, Murtaza NESS Primary Care Provider Unavailabl e Anisha Martinez DO Primary Care Pro vider Unavailable Ama Riggs MD Primary Care Provider Un available Darrell Ag MD Primary Care Provide r Unavailable Ama Riggs MD Primary Care Provider Un available Ynaci Higgins MD Primary Care Provider Unavail able Reason for Visit * Reason Onset Date Comments Echocardiogram 08/01/2013 Encounter Details Date Type Department Care Team Description 08/01/2013 Telephone Adult Medicine [address] [address] Name, MD Murtaza Echocardiogram Social History Tobacco Use Types Packs/Day Years Used Date Smoking Tobacco: Never Smokeless Tobacco: Never Alcohol Use Standard Drinks/Week Comments No 0 (1 standard drink = 0.6 oz pur e alcohol) Sex Assigned at Date Recorded Not on file documented as of this encounter Miscellaneous Notes * Telephone Encounter - Vi Tuttle - 08/01/2013 3:31 PM EDT Marlene Allen has not responded to the telephone calls that were made on 07-05 and 07-14 as well as theletter that was sent on 07-18 to schedule a echocardiogram; therefore we are removing the test from our Scheduled Orders Report. Please note that this test must be reordered if required in the future. documented in this encounter Plan of Treatment Not on file documented as of this encounter Visit Diagnoses Not on filedocumented in this encounter Care Teams Pocketed Spring Assembler Relationship Specialty Start Date End Date Name, [...]
--- OUTSIDE RECORDS SUMMARY | 2024-05-18 08:17 | XMS_ITS | Patient Health Record ---
Author Organization [facility] Address [address] [facility] [address] [place] [address] Care Team Providers Care Microstrategy Architect Name Role Phone Lise Fiore Primary Care [...] Problem Status W/U Status Risk Notes Problem [id number] Psoriasis (L40.9) Active confirmed Plan Of Treatment No Information Insurance Providers Payer Name Payer Address Payer Phone Subscriber Number Group Number Insured Name Patient Relationship to Insured Coverage Start Date Coverage End Date [address] [place] [address] [id number] Marlene Allen Self - patient is the insured Medical [...]
--- OUTSIDE RECORDS SUMMARY | 2024-05-18 08:17 | XMS_ITS | Encounter Summary ---
Author Organization [facility] Address [address] [place] [address] Care Team Providers Care Director It Name Role Phone Ama Riggs MD Primary Care Provider Un available Yanci Higgins MD Primary Care Provider Unavail able Encounter Details Date Type Department Care Team Description 02/02/2018 Release of Information Medical Records [address] [place] [address] Abstract, Provider Social History Tobacco Use Types [...] filedocumented in this encounter Care Teams Director It Relationship Specialty Start Date End Date Ama Riggs MD PCP - General Internal Medicine 10/06/17 Yanci Higgins MD PCP - General Internal Medicine 01/20/19 documented as of this encounter
--- OUTSIDE RECORDS SUMMARY | 2024-05-18 08:17 | XMS_ITS ---
Author Organization [facility] Address [address] [address] Care Team Providers Care Brazer Crawler Torch Name Role Phone Lise Fiore Primary Care Provider Unavailab DAVID Rosales Unavailable [phone] REASON FOR VISIT nail culture results Social History Sex Assigned At : Social History Observation Description Sex Assigned At Female Encounters Encounter Location Date Provider Diagnosis [facility] [address] [address] 11/17/2022 DAVID HERMOSILLO Plan Of Treatment No Information Progress Notes * Marlene ALLENDOB:1975 ( 47 yo F)Acc No.[id number]:11/17/2022 Patient:?Marlene Allen :1975???Age:47 Y???Sex:Female Phone: Address:[address] [place] [phone] * true * Date:? Generated for Mervini jamel/Joey/eTransmitting on:?05/18/2024 08:16 AM EDT
--- OUTSIDE RECORDS SUMMARY | 2024-05-18 08:17 | XMS_ITS | Encounter Summary ---
Author Organization [facility] Address [address] [place] [address] Care Team Providers Care Test Grader Name Role Phone Ama Riggs MD Primary Care Provider Un available Yanci Higgins MD Primary Care Provider Unavail able Encounter Details Date Type Department Care Team Description 07/20/2018 Release of Information Medical Records [address] [place] [address] Abstract, Provider Social History Tobacco Use Types [...] on filedocumented in this encounter Care Teams Test Grader Relationship Specialty Start Date End Date Ama Riggs MD PCP - General Internal Medicine 10/06/17 Yanci Higgins MD PCP - General Internal Medicine 01/20/19 documented as of this encounter
--- OUTSIDE RECORDS SUMMARY | 2024-05-18 08:17 | XMS_ITS | Encounter Summary ---
Author Organization [facility] Address [address] [place] [address] Care Team Providers Care Sand Mill Operator Facing Sand Name Role Phone Darrell Ag MD Primary Care Provide r Unavailable Ama Riggs MD Primary Care Provider Un available Yanci Higgins MD Primary Care Provider Unavail able Encounter Details Date Type Department Care Team Description 09/21/2017 Release of Information Medical Records [address] [place] [address] Abstract, Provider Social History Tobacco Use Types [...] on filedocumented in this encounter Care Teams Sand Mill Operator Facing Sand Relationship Specialty Start Date End Date Darrell Ag MD PCP - General Internal Medicine 08/18/17 Ama Riggs MD PCP - General Internal Medicine 10/06/17 Yanci Higgins MD PCP - General Internal Medicine 01/20/19 documented as of this encounter
== END 2024-05-18 08:28 | disposition home or self-care (01) ==
LOC: HO.HGS 08:08
PROVIDERS: PCP Internal Medicine; Visit Provider Surgery
DX: R22.1 Localized swelling, mass and lump, neck (principal)
CPT/HCPCS: 99204

== ENCOUNTER → 2024-05-18 08:07 | Outpatient (BNVA) | payer OTHER, SELFPAY | PROVIDERS: PCP Internal Medicine; Visit Provider Surgery ==

== ENCOUNTER 2024-05-20 11:14 | Outpatient (REF) | payer OTHER, SELFPAY ==
--- NOTE | ~2024-05-20 | US_ITS ---
EXAMINATION: US SOFT TISSUE HEAD AND NECK, LIMITED. CLINICAL INFORMATION: Lump under left chin. COMPARISON: None available. TECHNIQUE: Linear transducer prather-scale and color Doppler examination with attention to the left submandibular region.. FINDINGS: There is a 4.1 x 1.8 x 3.5 cm heterogeneous predominantly hypoechoic lesion with septations and no flow on color Doppler interrogation centered in the right submandibular region. There is a 2.9 x 1.6 x 3.2 cm well-defined hypoechoic lesion without flow on color Doppler interrogation on the left submandibular region. US/US soft tiss head and/or neck IMPRESSION: Abnormal enlarged lymphadenopathy, submandibular compartment. Recommend dedicated IV contrast enhanced CT soft tissue neck since malignancy cannot be excluded.. Electronically signed by: Chris Troncoso MD 05/20/2024 01:14 PM EDT
--- OUTSIDE RECORDS SUMMARY | 2024-05-20 13:08 | XMS_ITS | Patient Health Record ---
Author Organization [facility] Address [address] [facility] [address] [place] [address] Care Team Providers Care C.O.D. Clerk Name Role Phone Lise Fiore Primary Care [...] Problem Status W/U Status Risk Notes Problem [id number] Psoriasis (L40.9) Active confirmed Plan Of Treatment No Information Insurance Providers Payer Name Payer Address Payer Phone Subscriber Number Group Number Insured Name Patient Relationship to Insured Coverage Start Date Coverage End Date [address] [place] [address] [phone] [id number] Marlene Allen Self - patient is the [...]
--- OUTSIDE RECORDS SUMMARY | 2024-05-20 13:08 | XMS_ITS | Clinical Summary ---
[facility] Address [address] [place] [address] Care Team Providers Care Billing Rep Name Role Phone Yanci Higgins MD Primary Care Provider [phone] Surgical History Surgery Date Site/Laterality Comments HYSTERECTOMY [...] age to complete this topic Care Teams Billing Rep Relationship Specialty Start Date End Date Yanci Higgins MD PCP - General Internal Medicine 01/20/19
== END 2024-05-20 11:15 | disposition home or self-care (01) ==
LOC: HO.HMGCX 11:14
PROVIDERS: PCP Internal Medicine; Visit Provider Internal Medicine
DX: R22.1 Localized swelling, mass and lump, neck (principal)
CPT/HCPCS: 76536

== ENCOUNTER → 2024-05-20 11:34 | Outpatient (BNV) | payer OTHER, SELFPAY | PROVIDERS: PCP Internal Medicine; Visit Provider Radiology Diagnostic Radiology | DX: R59.0 Localized enlarged lymph nodes (principal) | CPT/HCPCS: 76536 ==

== ENCOUNTER 2024-05-25 08:44 | Outpatient (AMB) | payer OTHER, SELFPAY ==
[2024-05-25 09:00] VITALS: BP 148/65; PULSE 70; BMI 51.4
--- NOTE | 2024-05-25 09:00 | MHC.OFFVIS ---
Vital Signs 05/25/24 09:00 Height 5 ft 7 in Weight 328 lb BMI 51.4 BP 148/65 H Blood Pressure Location Rt brachial Position Sitting Pulse 70 Intake Visit Reasons: Discuss Neck US Intake Note: Patient here to discuss Head and neck US from 05-20-2024. Laminating Machine Offbearer Required: No Accompanied by: Self / Same As Patient Allergies Penicillins Allergy (Mild, Verified 05/25/24 09:01) Rash Shrimps Allergy (Intermediate, Uncoded 05/25/24 09:01) anaphylaxis Medication List - Last Reconciled 05/25/24 by Obie Moctezuma MD albuterol sulfate 90 mcg/actuation 2 puffs inhalation Q6H PRN blood sugar diagnostic (FreeStyle Lite Strips) Use 1 test strip once a day blood-glucose meter (FreeStyle Lite Meter kit) As directed fluticasone propionate 50 mcg/actuation (Flonase Allergy Relief) 1 spray intranasal BID 30 days lancets (FreeStyle Lancets) Use 1 lancet once a day multivitamin 1 tab PO DAILY naproxen 500 mg PO BID PRN 30 days triamcinolone acetonide 0.5% 1 appl topical BID 2 weeks Ventolin HFA 90 mcg/actuation (albuterol sulfate) 2 puffs inhalation Q6H PRN 30 days NS HPI Comments Details: Patient presents for follow-up regarding cervical adenopathy. Ultrasound findings were reviewed with her. Enlarged neck adenopathy. [facility] Medical History (Updated 05/11/24 @ 13:14 by Lise Voss MD) Moderate recurrent major depression Transaminitis Polyarthralgia Bilateral primary osteoarthritis of knee Eczema Fibromyalgia MAGNOLIA on CPAP Mild persistent asthma, uncomplicated KEVYN (generalized anxiety disorder) Morbid obesity due to excess calories Type 2 diabetes mellitus, without long-term current use of insulin Surgical History (Updated 05/25/24 @ 09:16 by Obie Moctezuma MD) H/O breast biopsy History of Achilles tendon repair History of hysterectomy Family History (Updated 05/11/24 @ 09:15 by Lise Voss MD) Mother Hypertension Hypothyroid Father Sleep apnea Brother Substance use disorder Maternal Aunt Breast CA Maternal Aunt Skin cancer Son No problems noted. Daughter Headache Daughter Hypertension Social History Household Members: Spouse and Family Housing: House Do you presently have visiting nurse or other home services: No Alcohol intake: never Patient Tobacco Use Status: Never used Tobacco e-Cigarette/Vaping Use: Never Used Second Hand Smoke Exposure: No service: No Current occupational status: unemployed Cognitive needs: No Hearing needs: No Vision needs: No Female Reproductive History Menstrual Age of Menarche: 9 Physical Exam Vital Signs: Last Vital Signs Pulse 70 05/25/24 09:00 BP 148/65 H 05/25/24 09:00 BMI result Body Mass Index 51.4 HEENT Other: Exam is status quo co month large left submandibular and right cervical lymph nodes as per prior exam. Office Procedures FNA Biopsy FNA Biopsy Details: The risks, benefits, alternatives of FNA of large left cervical lymph node/mass were reviewed with the patient and included but not limited to bleeding, infection, non diagnosis, numbness, pain, scarring the patient wished to proceed. All questions answered. Under sterile technique, patient underwent FNA core biopsy using 18 gauge needle of left cervical lymph node. Good specimen retrieved. Specimen sent to pathology. Dressing applied. Patient tolerated procedure well. FNA Biopsy 1: 99737-[id number] Biopsy, 1st lesion w/o image FNA Biopsy 2: [id number] Biopsy, additional lesion w/o image All charges added?: Procedure code (CPT) selection complete Assessment & Plan Assessment & Plan (1) Localized swelling, mass and lump, neck: Code(s): R22.1 - Localized swelling, mass and lump, neck Category: Surgical Plan: Patient was been given local instructions including ice to the area periodically, Tylenol and Motrin p.r.n. pain and she will see me in roughly 1 week's time to review of the pathology results or p.r.n.. All questions answered. (2) Cervical lymphadenopathy: Code(s): R59.0 - Localized enlarged lymph nodes Category: Surgical Plan: See above Orders: Orders Surgical Today R22.1 - Localized swelling, mass and lump, neck Biopsy - Fine needle aspiration Today R22.1 - Localized swelling, mass and lump, neck, R59.0 - Localized enlarged lymph nodes Coding Level of Care Code Est Pt Level 5 (30314) Diagnoses Localized swelling, mass and lump, neck R22.1 Cervical lymphadenopathy R59.0 CPT Codes FNA Biopsy - FNA Biopsy 1: [id number] Biopsy, 1st lesion w/o image ([id number]) FNA Biopsy - FNA Biopsy 2: [id number] Biopsy, additional lesion w/o image ([id number])
--- OUTSIDE RECORDS SUMMARY | 2024-05-25 09:05 | XMS_ITS | Clinical Summary ---
[facility] Organization [facility] Address [address] [place] [address] Care Team Providers Care Facility Worker Name Role Phone Yanci Higgins MD Primary [...] age to complete this topic Meningococcal B Vaccine Aged Out No l onger eligible based on patient's age to complete [...] age to complete this topic Care Teams Facility Worker Relationship Specialty Start Date End Date Yanci Higgins MD PCP - General Internal Medicine 01/20/19
== END 2024-05-25 09:11 | disposition home or self-care (01) ==
LOC: HO.HGS 08:45
PROVIDERS: PCP Internal Medicine; Visit Provider Surgery
DX: R59.0 Localized enlarged lymph nodes (principal)
CPT/HCPCS: 10004; 10021

== ENCOUNTER 2024-05-25 08:44 | Outpatient (REF) | payer OTHER, SELFPAY ==
--- OUTSIDE RECORDS SUMMARY | 2024-05-25 09:48 | XMS_ITS | Patient Health Record ---
Author Organization [facility] Address [address] [facility] [address] [place] [address] Care Team Providers Care General Farmworker Name Role Phone Lise Fiore Primary Care [...] Problem Status W/U Status Risk Notes Problem [id number] Psoriasis (L40.9) Active confirmed Plan Of Treatment No Information Insurance Providers Payer Name Payer Address Payer Phone Subscriber Number Group Number Insured Name Patient Relationship to Insured Coverage Start Date Coverage End Date [address] [place] [phone] [id number] Marlene Allen Self - patient is the [...]
--- OUTSIDE RECORDS SUMMARY | 2024-05-25 09:48 | XMS_ITS | Clinical Summary ---
Author Organization [facility] Address [address] [place] [address] Care Team Providers Care Cardiac Rehabilitation Specialist Name Role Phone Yanci Higgins MD Primary Care Provider [phone] Surgical History Surgery Date Site/Laterality Comments HYSTERECTOMY [...] age to complete this topic Care Teams Cardiac Rehabilitation Specialist Relationship Specialty Start Date End Date Yanci Higgins MD PCP - General Internal Medicine 01/20/19
== END 2024-05-25 08:45 | disposition home or self-care (01) ==
LOC: HO.LNP 08:44
PROVIDERS: PCP Internal Medicine; Visit Provider Surgery
DX: R22.1 Localized swelling, mass and lump, neck (principal)
CPT/HCPCS: 10021; 88305; 88341; 88342; 88360

== ENCOUNTER 2024-06-01 08:00 | Outpatient (AMB) | payer OTHER, SELFPAY ==
--- NOTE | 2024-06-01 08:02 | MHC.OFFVIS ---
Vital Signs 06/01/24 08:06 Height 5 ft 7 in Weight 327 lb BMI 51.2 BP 116/55 L Blood Pressure Location Lt radial Position Sitting Pulse 79 Intake Visit Reasons: s/p FNA Intake Note: Patient here s/p FNA on Lt neck. Reports bx site healing well. Patient c/o: no concerns. Biopharmaceutical Rep Required: No Accompanied by: Self / Same As Patient Allergies Penicillins Allergy (Mild, Verified 06/01/24 08:07) Rash Shrimps Allergy (Intermediate, Uncoded 06/01/24 08:07) anaphylaxis HPI Comments Details: Patient was to follow-up status post FNA left cervical lymphadenopathy. Pathology results were reviewed. Based on recommendation of the pathology report along with clinical suspicion, current recommendation is for excisional biopsy of the left served lymph node [facility] Medical History (Updated 05/11/24 @ 13:14 by Lise Voss MD) Moderate recurrent major depression Transaminitis Polyarthralgia Bilateral primary osteoarthritis of knee Eczema Fibromyalgia MAGNOLIA on CPAP Mild persistent asthma, uncomplicated KEVYN (generalized anxiety disorder) Morbid obesity due to excess calories Type 2 diabetes mellitus, without long-term current use of insulin Surgical History (Updated 05/25/24 @ 09:16 by Obei Moctezuma MD) H/O breast biopsy History of Achilles tendon repair History of hysterectomy Family History (Updated 05/11/24 @ 09:15 by Lise Voss MD) Mother Hypertension Hypothyroid Father Sleep apnea Brother Substance use disorder Maternal Aunt Breast CA Maternal Aunt Skin cancer Son No problems noted. Daughter Headache Daughter Hypertension Social History Household Members: Spouse and Family Housing: House Do you presently have visiting nurse or other home services: No Alcohol intake: never Patient Tobacco Use Status: Never used Tobacco e-Cigarette/Vaping Use: Never Used Second Hand Smoke Exposure: No service: No Current occupational status: unemployed Cognitive needs: No Hearing needs: No Vision needs: No Female Reproductive History Menstrual Age of Menarche: 9 Physical Exam Vital Signs: Last Vital Signs Pulse 79 06/01/24 08:06 BP 116/55 L 06/01/24 08:06 BMI result Body Mass Index 51.2 HEENT Other: Large left and smaller right cervical lymphadenopathy. Left measures 4 x 3 cm. Right 3 x 2 Chest Other: Chest sounds bilaterally, HS 1 in 2 GI Other: Abdomen corpulent, soft Skin Other: Aside from cervical, no other periclavicular, axillary or groin adenopathy appreciated Assessment & Plan Assessment & Plan (1) Cervical lymphadenopathy: Code(s): R59.0 - Localized enlarged lymph nodes Category: Surgical Plan Patient was like to proceed with excision left cervical lymph node/mass. Risks, benefits, alternatives of the procedure reviewed with the patient and included but not limited to bleeding, infection, numbness, pain, scarring, non diagnosis and the patient understands and wishes to proceed. All questions answered. Arrangements were made for this on a day which is convenient for her. Coding Level of Care Code Est Pt Level 5 (89732) Diagnoses Cervical lymphadenopathy R59.0
--- OUTSIDE RECORDS SUMMARY | 2024-06-01 08:04 | XMS_ITS | Encounter Summary ---
Author Organization [facility] Address [address] [place] [address] Care Team Providers Care Electronic Tester Name Role Phone Murtaza Salcedo MD Primary [...] Date Type Department Care Team Description 11/23/[address] [address] Name, MD Murtaza Error (opened in error [...] on filedocumented in this encounter Care Teams Electronic Tester Relationship Specialty Start Date End Date Murtaza [...]
--- OUTSIDE RECORDS SUMMARY | 2024-06-01 08:04 | XMS_ITS | Encounter Summary ---
Author Organization [facility] Address [address] [place] [address] Care Team Providers Care Front Desk Lead Name Role Phone Ama Riggs MD Primary Care Provider Un available Yanci Higgins MD Primary Care Provider Unavail able Encounter Details Date Type Department Care Team Description 07/20/2018 Release of Information Medical Records [address] [place] [address] Abstract, Provider Social History Tobacco Use Types [...] on filedocumented in this encounter Care Teams Front Desk Lead Relationship Specialty Start Date End Date Ama Riggs MD PCP - General Internal Medicine 10/06/17 Yanci Higgins MD PCP - General Internal Medicine 01/20/19 documented as of this encounter
--- OUTSIDE RECORDS SUMMARY | 2024-06-01 08:04 | XMS_ITS | Encounter Summary ---
Author Organization [facility] Address [address] [place] [address] Care Team Providers Care Reservoir Engineering Advisor Name Role Phone Ama Riggs MD Primary Care Provider Un available Darrell Ag MD Primary Care Provide r Unavailable Ama Riggs MD Primary Care Provider Un available Yanci Higgins MD Primary Care Provider Unavail able Reason for Referral * Non AMAURY (Routine) - Authorized/Booked Specialty Diagnoses / Procedures Referred By Contac t Referred To Contact Pulmonology Procedures REFERRAL TO PULMONOLOGY Ama Riggs MD [address] [place] [address] Pulmo/[place] [address] [address] Referral ID Status Reason Start Date Expiration Date V isits Requested Visits Authorized [id number] Authorized/B ooked 07/09/2017 07/09/2018 1 1 Reason for Visit * Reason Onset Date Comments Report Writer Feedback 07/09/2017 Lynda Smith onology Encounter Details Date Type Department Care Team Description 07/09/2017 Telephone Adult Medicine [address] [id number] Ama Riggs MD Report Writer Feedback (Lynda Cuba- Pulmonology) Social History Tobacco Use Types Packs/Day Years Used Date Smoking Tobacco: Never Smokeless Tobacco: Never Alcohol Use Standard Drinks/Week Comments No 0 (1 standard drink = 0.6 oz pur e alcohol) Sex Assigned at Date Recorded Not on file documented as of this encounter Miscellaneous Notes * Telephone Encounter - Zainab Hernandezlili - 07/09/2017 12:33 PM EDT Please review this patients new referral request. The referral has been pended. Please complete thefollowing: If approved> sign order If denied>please give instructions and route to your practice nursing pool. Practice nurse should inform referrals and the patient if denied. * Telephone Encounter - Scarlet Gutierrez - 07/09/2017 12:23 PM EDT What insurance does the patient have today? Payor: [employer] / Plan: Jybe $20 DUE WEST 1/ Product Type: HMO [id number] Effective 11/16/08: BCBS will not retro referral requests over 90 days. If request is for this please instruct patient to call the 800# on their insurance card to appeal. Do not submit a request. Referrals cannot be processed if the insurance is not accurate. If the insurance listed above in red is NO BILLING INFORMATION FOUND FOR THIS ENCOUTNER The patients correct insurance must be obtained and registered in [facility] or their referral can not be processed. Is this a retro request? NO. If yes for what date of service do you need the retro referral? N/A Who is calling to request this referral? Patient If the caller is not the patient, what is their name? N/A Ask the patient WHO referred them to this specialty: Patient spoke to Dr. Shannon Reno and was told they would order a referral to this specialty FIRST and LAST NAME of SPECIALIST PATIENT is seeing: Lynda Cuba What specialty is this? pulmonology DIAGNOSIS Patient is being seen for (Not a body part or a procedure): MAGNOLIA Have you seen this SPECIALIST for this PROBLEM/DX before?YES If YES, when:over a year Have you checked REVIEW or the APPT DESK to see if this referral has already been done or has visits left? YES Is this visit:Follow Up Address of Specialist:[address], [place], [place] Phone # of Specialist:[phone] Fax #: (if applicable): Does patient have an appointment scheduled?: NO Date of appointment- (including a retro-request): Need referral first Is this appointment related to: Not MVA, WC or Surgery related documented in this encounter Plan of Treatment Not on file documented as of this encounter Visit Diagnoses Not on filedocumented in this encounter Care Teams Reservoir Engineering Advisor Relationship Specialty Start Date End Date Ama Riggs MD PCP - General Internal Medicine 05/28/15 Darrell Ag MD PCP - General Internal Medicine 08/18/17 Ama Riggs MD PCP - General Internal Medicine 10/06/17 Yanci Higgins MD PCP - General Internal Medicine 01/20/19 documented as of this encounter
--- OUTSIDE RECORDS SUMMARY | 2024-06-01 08:04 | XMS_ITS | Encounter Summary ---
Author Organization [facility] Address [address] [place] [address] Care Team Providers Care Bulk Gas Specialist Name Role Phone Anisha Martinez DO Primary Care Pro vider Unavailable Ama Riggs MD Primary Care Provider Un available Darrell Ag MD Primary Care Provide r Unavailable Ama Riggs MD Primary Care Provider Un available Yanci Higgins MD Primary Care Provider Unavail able Encounter Details Date Type Department Care Team Description 03/13/2015 INTENSIVE CARE AMBULANCE PARAMEDIC/[facility] Report Medical Records [address] [place] [address] Abstract, Provider Social History Tobacco Use Types [...] on filedocumented in this encounter Care Teams Bulk Gas Specialist Relationship Specialty Start Date End Date Anisha [...]
--- OUTSIDE RECORDS SUMMARY | 2024-06-01 08:04 | XMS_ITS | Encounter Summary ---
Author Organization [facility] Address [address] [place] [address] Care Team Providers Care Seed Service Advisor Name Role Phone Ama Riggs MD Primary Care Provider Un available Yanci Higgins MD Primary Care Provider Unavail able Reason for Visit * Reason Comments E-prescribe Rx Request Encounter Details Date Type Department Care Team Description 05/12/2018 Refill Adult Medicine [address] [address] Lilian Stewart PA-C E-prescribe Rx Request Social [...] an upcoming appointment? No-[facility] to [facility] [...] N/A Patients current insurance carrier is: [facility] / Plan: [facility] SILVER TYPE 3 / Product Type: HMO [id number] documented in this encounter Plan of Treatment Not on file documented as of this encounter Visit Diagnoses Not on filedocumented in this encounter Care Teams Seed Service Advisor Relationship Specialty Start Date End Date Ama Riggs MD PCP - General Internal Medicine 10/06/17 Yanci Higgins MD PCP - General Internal Medicine 01/20/19 documented as of this encounter
--- OUTSIDE RECORDS SUMMARY | 2024-06-01 08:04 | XMS_ITS | Encounter Summary ---
Author Organization [facility] Address [address] [place] [address] Care Team Providers Care Computer Programming Manager Name Role Phone Matias, Murtzaa NESS Primary Care Provider Unavailabl e Anisha [...] Care Team Description 03/18/2013 Telephone Adult Medicine [address] [address] Name, MD Murtaza flu symptoms Social History [...] symptoms?: one week PCP: Murtaza Name Payor: [employer] Plan: [employer] $[id number] Product Type: MEDICAID [id number] documented in this encounter Plan of Treatment Not on file documented as of this encounter Visit Diagnoses Not on filedocumented in this encounter Care Teams Computer Programming Manager Relationship Specialty Start Date End Date Name, [...]
--- OUTSIDE RECORDS SUMMARY | 2024-06-01 08:04 | XMS_ITS | Clinical Summary ---
Author Organization [facility] Address [address] [place] [address] Care Team Providers Care Powder Monkey Name Role Phone Yanci Higgins MD Primary [...] 11/03/2017, 11/24/2013, Additional history exists Care Teams Powder Monkey Relationship Specialty Start Date End Date Yanci Higgins MD PCP - General Internal Medicine 01/20/19
--- OUTSIDE RECORDS SUMMARY | 2024-06-01 08:04 | XMS_ITS | Encounter Summary ---
Author Organization [facility] Address [address] [place] [address] Care Team Providers Care Director Of Recruitment And Admissions Name Role Phone Murtaza Salcedo MD Primary Care Provider Unavailabl e Anisha Martinez DO Primary Care Pro vider Unavailable Ama Riggs MD Primary Care Provider Un available Darrell Ag MD Primary Care Provide r Unavailable Ama Riggs MD Primary Care Provider Un available aYnci Higgins MD Primary Care Provider Unavail able Reason for Visit * Reason Onset Date Comments Faxed Order 11/17/2013 Encounter Details Date Type Department Care Team Description 11/17/2013 Telephone Adult Medicine [address] [address] Name, MD Murtaza Faxed Order Social History [...] EDT Please review and sign Fax to [phone] documented in this encounter Plan of Treatment Not on file documented as of this encounter Visit Diagnoses Not on filedocumented in this encounter Care Teams Director Of Recruitment And Admissions Relationship Specialty Start Date End Date Matias, [...]
--- OUTSIDE RECORDS SUMMARY | 2024-06-01 08:04 | XMS_ITS | Clinical Summary ---
Author Organization [facility] Address [address] [place] [address] Care Team Providers Care Shoe Lining Fitter Name Role Phone Yanci Higgins MD Primary [...] Vaccine ( - season) 2023 Influenza Vaccine (Season Ended) 2024 11/02/2018, 11/03/2017, 11/24/2013, Additional history exists HIB Vaccines [...] age to complete this topic Care Teams Shoe Lining Fitter Relationship Specialty Start Date End Date Yanci Higgins MD PCP - General Internal Medicine 01/20/19
--- OUTSIDE RECORDS SUMMARY | 2024-06-01 08:04 | XMS_ITS | Encounter Summary ---
Author Organization [facility] Address [address] [place] [address] Care Team Providers Care Proj Engineer Name Role Phone Ama Riggs MD Primary Care Provider Un available Yanci Higgins MD Primary Care Provider Unavail able Reason for Visit * Reason Onset Date Comments My Chart Appointment 06/21/2018 Encounter Details Date Type Department Care Team Description 06/21/2018 Telephone Adult Medicine [address] [address] Ama Riggs MD My Chart Appointment Social History Tobacco Use Types Packs/Day Years Used Date Smoking Tobacco: Never Smokeless Tobacco: Never Alcohol Use Standard Drinks/Week Comments No 0 (1 standard drink = 0.6 oz pur e alcohol) Sex Assigned at Date Recorded Not on file documented as of this encounter Miscellaneous Notes * Telephone Encounter - Ana Martinez R.N. - 06/21/2018 8:13 AM EDT Call sent 8:13 am for 8:45 appointment , I left a message for the patient to return my call. * Telephone Encounter - Roger Lenz - 06/21/2018 8:12 AM EDT Symptoms patient is presenting: Cathi Allen - Appointment scheduled from [facility] More Detail >> ?? Appointment scheduled from [facility] ?? Cathi Allen ?? Sent: Delilah June 20, 2018 ??7:57 PM ?? Cathi Allen ?? : 1975 ?? Pt Home: ?? Entered: [phone] Message ?? Appointment For: CATHI ALLEN ([id number]) ?? Visit Type: SICK VISIT (511) ? 06/21/2018 ? 8:45 AM ??15 mins. ??Lilian Stewart PA-C ?[facility] ? Patient Comments: ?? New Problem Visit ?? Breathing problems and coughing won???t stop If pain or injury related was it due to an accident at work or from a motor vehicle accident? NO If yes, gather 3rd green party insurance information Date of accident/Injury: How long has patient had these symptoms?: PCP: Ama Riggs Payor: [facility] / Plan: [facility] SILVER TYPE 3 / Product Type: O [id number] documented in this encounter Plan of Treatment Not on file documented as of this encounter Visit Diagnoses Not on filedocumented in this encounter Care Teams Proj Engineer Relationship Specialty Start Date End Date Ama Riggs MD PCP - General Internal Medicine 10/06/17 Yanci Higgins MD PCP - General Internal Medicine 01/20/19 documented as of this encounter
--- OUTSIDE RECORDS SUMMARY | 2024-06-01 08:04 | XMS_ITS | Encounter Summary ---
Author Organization [facility] Address [address] [place] [address] Care Team Providers Care Beater Room Helper Name Role Phone Ama Riggs MD Primary Care Provider Un available Darrell Ag MD Primary Care Provide r Unavailable Ama Riggs MD Primary Care Provider Un available Yanci Higgins MD Primary Care Provider Unavail able Encounter Details Date Type Department Care Team Description 05/26/2016 [employer] Certified Network Associate Report Medical Records [address] [place] [id number] Gerry Lee DPM Social History Tobacco Use [...] on filedocumented in this encounter Care Teams Beater Room Helper Relationship Specialty Start Date End Date Ama Riggs MD PCP - General Internal Medicine 05/28/15 8 Darrell Ag MD PCP - General Internal Medicine 08/18/17 Ama Riggs MD PCP - General Internal Medicine 10/06/17 Yanci Higgins MD PCP - General Internal Medicine 01/20/19 documented as of this encounter
--- OUTSIDE RECORDS SUMMARY | 2024-06-01 08:04 | XMS_ITS | Encounter Summary ---
Author Organization [facility] Address [address] [place] [address] Care Team Providers Care Pulverizer Name Role Phone Name, Murtaza NESS Primary Care Provider Unavailabl e Anisha Martinez DO Primary Care Pro vider Unavailable Ama Riggs MD Primary Care Provider Un available Darrell Ag MD Primary Care Provide r Unavailable Ama Riggs MD Primary Care Provider Un available Yanci Higgins MD Primary Care Provider Unavail able Encounter Details Date Type Department Care Team Description 07/02/2013 Hospital Medical Records [address] [place] [address] Collette Cisneros MD Social History Tobacco Use Types Packs/Day [...] on filedocumented in this encounter Care Teams Pulverizer Relationship Specialty Start Date End Date Name, [...]
--- OUTSIDE RECORDS SUMMARY | 2024-06-01 08:04 | XMS_ITS | Patient Health Record ---
Author Organization [facility] Address [address] [facility] [address] [place] [address] Care Team Providers Care Automotive Fleet Supervisor Name Role Phone Lise Fiore Primary Care [...] Problem Status W/U Status Risk Notes Problem [id number] Psoriasis (L40.9) Active confirmed Plan Of Treatment No Information Insurance Providers Payer Name Payer Address Payer Phone Subscriber Number Group Number Insured Name Patient Relationship to Insured Coverage Start Date Coverage End Date [address] [place] [address] [phone] [id number] Marlene Allen Self - patient is the [...]
--- OUTSIDE RECORDS SUMMARY | 2024-06-01 08:04 | XMS_ITS | Encounter Summary ---
Author Organization [facility] Address [address] [place] [address] Care Team Providers Care Rn Clinical Appeals Name Role Phone Name, Murtaza NESS Primary Care Provider Unavailabl e Anisha Martinez DO Primary Care Pro vider Unavailable Ama Riggs MD Primary Care Provider Un available Darrell Ag MD Primary Care Provide r Unavailable Ama Riggs MD Primary Care Provider Un available Yanci Higgins MD Primary Care Provider Unavail able Encounter Details Date Type Department Care Team Description 07/07/2013 [facility] Medical Records [address] [place] [address] Abstract, Provider Social History Tobacco Use Types [...] on filedocumented in this encounter Care Teams Rn Clinical Appeals Relationship Specialty Start Date End Date Name, [...]
[2024-06-01 08:06] VITALS: BP 116/55; PULSE 79; BMI 51.2
== END 2024-06-01 08:24 | disposition home or self-care (01) ==
PROVIDERS: PCP Internal Medicine; Visit Provider Surgery
DX: R59.0 Localized enlarged lymph nodes (principal)
CPT/HCPCS: 99214

== ENCOUNTER → 2024-06-01 08:00 | Outpatient (BNVA) | payer OTHER, SELFPAY | PROVIDERS: PCP Internal Medicine; Visit Provider Surgery ==

== ENCOUNTER 2024-06-28 08:00 | Outpatient (AMB) | payer OTHER, SELFPAY ==
--- OUTSIDE RECORDS SUMMARY | 2024-06-28 08:02 | XMS_ITS | Patient Health Record ---
Author Organization [facility] Address [address] [facility] [address] [place] [address] Care Team Providers Care Promotions Coordinator Name Role Phone Lise Fiore Primary Care [...] Problem Status W/U Status Risk Notes Problem [id number] Psoriasis (L40.9) Active confirmed Plan Of Treatment No Information Insurance Providers Payer Name Payer Address Payer Phone Subscriber Number Group Number Insured Name Patient Relationship to Insured Coverage Start Date Coverage End Date [address] [place] [address] [id number] Marlene Allen Self - patient is the [...]
--- OUTSIDE RECORDS SUMMARY | 2024-06-28 08:02 | XMS_ITS | Clinical Summary ---
Author Organization [facility] Address [address] [place] [address] Care Team Providers Care Veterinary Livestock Inspector Name Role Phone Yanci Higgins MD Primary Care Provider [phone] Surgical History Surgery Date Site/Laterality Comments HYSTERECTOMY [...] or Tdap) 02/24/2021 02/24/2011 COVID-19 Vaccine ( season) 2023 Influenza Vaccine (Season Ended) 2024 [...] age to complete this topic Care Teams Veterinary Livestock Inspector Relationship Specialty Start Date End Date Yanci Higgins MD PCP - General Internal Medicine 01/20/19
--- NOTE | 2024-06-28 08:08 | A.OFFVIS_ITS ---
Vital Signs 06/28/24 08:14 Height 5 ft 7 in Weight 330 lb BMI 51.7 BP 142/85 H Blood Pressure Location Rt radial Position Sitting Pulse 84 Intake Visit Reasons: Dr. Moctezuma~ cervical lymphadenopathy Intake Note: Patient last seen by Dr. Moctezuma on 06-01-2024. Patient scheduled today to discuss Lt cervical lymph node/ mass excision. Reports no concerns. Head & neck US: 05-20-2024 Supervisor Tumbling And Rolling Required: No Accompanied by: Self / Same As Patient Allergies Penicillins Allergy (Mild, Verified 06/28/24 08:12) Rash Shrimps Allergy (Intermediate, Uncoded 06/28/24 08:12) anaphylaxis Medication List - Last Reviewed 06/28/24 by AMBROCIO Sylvester albuterol sulfate 90 mcg/actuation 2 puffs inhalation Q6H PRN blood sugar diagnostic (FreeStyle Lite Strips) Use 1 test strip once a day blood-glucose meter (FreeStyle Lite Meter kit) As directed fluticasone propionate 50 mcg/actuation (Flonase Allergy Relief) 1 spray intranasal BID 30 days lancets (FreeStyle Lancets) Use 1 lancet once a day multivitamin 1 tab PO DAILY naproxen 500 mg PO BID PRN 30 days triamcinolone acetonide 0.5% 1 appl topical BID [address] Moctezuma~ cervical lymphadenopathy: Details: 48-year-old female referred for an enlarged lymph node on the right neck. She actually has been followed by Dr. Moctezuma. An ultrasound biopsy had been done last month and this showed reactive lymphatic tissue. She says that she has felt this masses on her neck for almost a year now. She says she just woke up 1 day feeling this lump on both sides of her neck. She denies any significant increase in size over the past few months She denies difficulty with swallowing. She denies any dental caries or any oral lesions She denies any night sweats or other systemic symptoms She is a known diabetic but says that his blood sugars are well controlled. She is not a smoker. [facility] Medical History Moderate recurrent major depression Transaminitis Polyarthralgia Bilateral primary osteoarthritis of knee Eczema Fibromyalgia MAGNOLIA on CPAP Mild persistent asthma, uncomplicated KEVYN (generalized anxiety disorder) Morbid obesity due to excess calories Type 2 diabetes mellitus, without long-term current use of insulin Surgical History H/O breast biopsy History of Achilles tendon repair History of hysterectomy Family History Mother Hypertension Hypothyroid Father Sleep apnea Brother Substance use disorder Maternal Aunt Breast CA Maternal Aunt Skin cancer Son No problems noted. Daughter Headache Daughter Hypertension Social History Household Members: Spouse and Family Housing: House Do you presently have visiting nurse or other home services: No Alcohol intake: never Patient Tobacco Use Status: Never used Tobacco e-Cigarette/Vaping Use: Never Used Second Hand Smoke Exposure: No service: No Current occupational status: unemployed Cognitive needs: No Hearing needs: No Vision needs: No Female Reproductive History Menstrual Age of Menarche: 9 Review of Systems Const Denies chills and Denies fever(s) Card Denies chest pain, Denies dyspnea and Denies dyspnea on exertion Resp Denies cough, Denies dyspnea and Denies dyspnea on exertion GI Denies hematochezia and Denies change in bowel habits Denies hematuria Musc Denies back pain and Denies limited range of motion Neuro Denies focal weakness and Denies convulsions Psych Denies depression and Denies mood swings Physical Exam Vital Signs: Last Vital Signs Pulse 84 06/28/24 08:14 BP 142/85 H 06/28/24 08:14 BMI result Body Mass Index 51.7 Const Other: Morbidly obese General: comfortable and no acute distress Orientation/consciousness: patient oriented x3 Neck Other: Vague mass each side of the submandibular area, measuring about 3-4 cm each, nontender, no oral lesions Neck: Yes no lymphadenopathy Resp Auscultation: clear to auscultation bilaterally Cardio Rhythm: regular rhythm GI Palpation (GI): Soft to palpation, nontender and no guarding Neuro General: patient oriented x3 Assessment & Plan Assessment & Plan (1) Cervical lymphadenopathy: Code(s): R59.0 - Localized enlarged lymph nodes Category: Surgical Plan: Recent ultrasound biopsy showed reactive lymphatic tissue. This appeared to be very large lymph nodes and I am uncertain if these may be safely completely excised. I am going to order for a CAT scan of the neck to define these further and maybe help with diagnosis. I explained to her the plan and I will see her in the office thereafter. She says she understands he is comfortable with this. Orders: Orders Blood Urea Nitrogen Today R59.0 - Localized enlarged lymph nodes CT soft tissue neck w IV con Today R59.0 - Localized enlarged lymph nodes Creatinine Today R59.0 - Localized enlarged lymph nodes Coding Level of Care Code Est Pt Level 3 (65574) Diagnoses Cervical lymphadenopathy R59.0
[2024-06-28 08:14] VITALS: BP 142/85; PULSE 84; BMI 51.7
== END 2024-06-28 08:21 | disposition home or self-care (01) ==
LOC: HO.HGS 08:01
PROVIDERS: PCP Internal Medicine; Visit Provider Surgery
DX: R59.0 Localized enlarged lymph nodes (principal)
CPT/HCPCS: 99213

== ENCOUNTER 2024-06-28 08:00 | Outpatient (REF) | payer OTHER, SELFPAY ==
--- OUTSIDE RECORDS SUMMARY | 2024-06-28 08:40 | XMS_ITS | Clinical Summary ---
[facility] Address [address] [place] [address] Care Team Providers Care Typesetting Machine Tender Name Role Phone Yanci Higgins MD Primary Care Provider [phone] Surgical History Surgery Date Site/Laterality Comments HYSTERECTOMY [...] age to complete this topic Care Teams Typesetting Machine Tender Relationship Specialty Start Date End Date Yanic Higgins MD PCP - General Internal Medicine 01/20/19
[2024-06-28 10:30] LABS: Alanine Aminotransferase 18 U/L (0-31); Albumin Level 3.9 g/dL (3.5-5.0); Aspartate Amino Transferase 22 U/L (5-31); Bilirubin Total 0.3 mg/dL (0.0-1.0); Blood Urea Nitrogen 12 mg/dL (9-16); Calcium 9.1 mg/dL (8.4-10.2); Cholesterol 168 mg/dL (<200); Estimated Glomerular Filt Rate > 60; Glucose Fasting 103 mg/dL (60-99); HDL Cholesterol 53 mg/dL (>40); LDL Cholesterol Calculated 99 mg/dL (<100); Total Protein 6.9 g/dL (6.5-8.0); Triglycerides 83 mg/dL (<150)
[2024-06-28 10:41] LABS: Anion Gap 14 (12-20); Carbon Dioxide 27 mmol/L (22-29); Chloride 105 mmol/L (96-108); Potassium 4.4 mmol/L (3.3-5.1); Sodium 142 mmol/L (135-145)
[2024-06-28 12:47] LABS: Alkaline Phosphatase 113 U/L (39-117)
== END 2024-06-28 08:01 | disposition home or self-care (01) ==
LOC: HO.LAB 08:00
PROVIDERS: PCP Internal Medicine; Visit Provider Surgery
DX: Z00.00 Encounter for general adult medical examination without abnormal findings (principal); R59.0 Localized enlarged lymph nodes; E78.5 Hyperlipidemia, unspecified
CPT/HCPCS: 36415; 80053; 80061

== ENCOUNTER 2024-08-05 13:04 | Outpatient (REF) | payer OTHER, SELFPAY ==
--- NOTE | ~2024-08-05 | CT_ITS ---
EXAMINATION: CT SOFT TISSUE NECK WITH CONTRAST CLINICAL INFORMATION: COMPARISON: None available. TECHNIQUE: Following the intravenous administration of 100 mL of Omnipaque 350 intravenous contrast, helical imaging was performed in the axial plane with generation of coronal and sagittal reformatted images. This CT examination was performed using dose optimization techniques as appropriate, variously including the following: *Automated exposure control *Adjustment of mA and/or kV according to patient size (this includes techniques or standardized protocols for targeted exams where dose is matched to indication/reason for exam; i.e. extremities or head) *Use of iterative reconstruction technique FINDINGS: Lymph Nodes: -Abnormal lymphadenopathy in the upper neck. For example, a left level 1B node measures 3.0 x 2.9 x 2.1 cm (AP, TRV, CC). -A right level 2A lymph node measures 2.7 x 1.3 x 1.9 cm. This is contiguous/inseparable from an irregular appearing mass arising likely from the anteroinferior tail of the right parotid gland , measuring approximately 3.2 x 2.2 x 2.4 cm (AP, TRV, CC). (Series 2, image 50). -A left level 3 lymph node measures 2.1 x 0.9 x 2.2 cm (series 2, image 59). -There are additional smaller bilateral anterior cervical chain nodes. Carotid Sheath Structures: -Normal in appearance. Retropharyngeal course of the left distal CCA. Salivary Glands: -Suspect right parotid mass as discussed above, with adjacent lymphadenopathy. -Parotid glands are diffusely fatty replaced. -Normal-appearing submandibular glands. Tongue Base/Floor of Mouth: -In the midline of the anterior tongue base, there is a circumscribed oval cystic mass with peripheral enhancement measuring 1.5 x 1.3 x 1.7 cm, most consistent with a thyroglossal duct cyst. (Series 2, image 41). Mucosal Space: -Mild prominent tonsillar pillars soft tissues, consistent with reactive etiology. -There is no definite mucosal space mass. Visceral Space: -Thyroid gland: There is a left thyroid nodule measuring 0.9 x 1.1 x 2.5 cm (, AP, TRV, CC). There are adjacent smaller nodules. Thyroid otherwise normal. -Larynx normal. -Subglottic trachea normal. -Superior esophagus is normal. Retropharangeal Space: -Normal. Parapharyngeal Fat Planes: -Normal. Dot Compliance Manager Spaces: -Normal. Anterior Cervical Space: -Normal. Imaged Intracranial Contents: -No mass effect, edema, or abnormal enhancement. Cortical and dural venous sinuses are patent. The skull base is normal. Globes and Orbits: -Partially imaged, normal. Paranasal Sinuses/Mastoids/Tympanic Spaces: -Normally aerated bilaterally. Lung Apices and Superior Mediastinal Structures: -Imaged lung apices are clear -Superior mediastinal structures are normal. Bony Structures: -No suspicious bone lesions. No fractures. -Spondylosis of the cervical spine. -Normal TM joints. CT/CT soft tissue neck w IV con IMPRESSION: 1. Abnormal bulky superior neck lymphadenopathy, with largest node left level Ib, measuring up to 3.0 x 2.9 x 2.1 cm. 2. There is an irregular mass lesion abutting an enlarged right level 2A lymph node, with the irregular mass measuring approximately 3.2 x 2.2 x 2.4 cm. This may be arising from the anteroinferior right parotid tail. Correlation with lymph node biopsy may be of benefit. 3. Extensive fatty replacement of both parotid glands. 4. There is a midline cyst in the tongue base with peripheral enhancement, consistent with a thyroglossal duct cyst, measuring 1.5 x 1.3 x 1.7 cm. 5. There is a left thyroid nodule measuring 0.9 x 1.1 x 2.5 cm. There are smaller nodules. Correlation with ultrasound may be of benefit. 6. There is no definite mucosal space mass. Electronically signed by: Benjamin Shaffer MD 08/05/2024 02:20 PM EDT
[2024-08-05] MEDS: iohexoL 350 MG/ML 100 ML INFUS..BTL IV (13:50)
== END 2024-08-05 13:05 | disposition home or self-care (01) ==
LOC: HO.CT 13:04
PROVIDERS: PCP Internal Medicine; Visit Provider Surgery
DX: R59.0 Localized enlarged lymph nodes (principal)
CPT/HCPCS: 70491; Q9967

== ENCOUNTER → 2024-08-05 13:07 | Outpatient (BNV) | payer OTHER, SELFPAY | PROVIDERS: PCP Internal Medicine; Visit Provider Radiology Diagnostic Radiology | DX: E04.2 Nontoxic multinodular goiter (principal); R59.0 Localized enlarged lymph nodes; K11.8 Other diseases of salivary glands | CPT/HCPCS: 70491 ==

== ENCOUNTER 2024-08-15 08:03 | Outpatient (AMB) | payer OTHER, SELFPAY ==
--- OUTSIDE RECORDS SUMMARY | 2024-08-15 08:06 | XMS_ITS | Patient Health Record ---
Author Organization [facility] Address [address] [facility] [address] [place] [address] Care Team Providers Care Riveting Machine Operator Name Role Phone Lise Fiore Primary [...] Problem Status W/U Status Risk Notes Problem [id number] Psoriasis (L40.9) Active confirmed Plan Of Treatment No Information Insurance Providers Payer Name Payer Address Payer Phone Subscriber Number Group Number Insured Name Patient Relationship to Insured Coverage Start Date Coverage End Date [address] [place] [address] [phone] [id number] Alejandro Marlene Self - patient is the [...]
[2024-08-15 08:21] VITALS: BP 138/94; PULSE 86; TEMP 36.6; O2SAT 97; BMI 52.1
--- NOTE | 2024-08-15 08:21 | AM.OFFWIN_ITS ---
Intake Vital Signs 08/15/24 08:21 Height 5 ft 7 in Weight 332 lb 8 oz BMI 52.1 BP 138/94 H Pulse 86 Pulse Source Pulse Oximeter Temp 97.9 F Temp Source Oral Pulse Oximetry (%) 97 Oxygen Delivery Method Room Air Intake Visit Reasons: EP Fall 3 wks ago, knee pain, mostly LT Intake Note: Patient fell ?4 weeks ago, still has bilateral knee pain. Left knee pain more severe and is causing pain on the whole left side of the body Patient Tobacco Use Status: Never used Tobacco Manufacturing Supervisor 2Nd Shift Required: No Allergies Penicillins Allergy (Mild, Verified 06/28/24 08:12) Rash Shrimps Allergy (Intermediate, Uncoded 06/28/24 08:12) anaphylaxis Do you need a note to return to daycare/school/sports/work: Yes HPI HPI Comments History of Present Illness Details 48 y/o Female patient who presents to [facility] walk in clinic with c/o B/L knee pains after a fall 4 weeks ago. Reports that Left knee pain worse than right knee. [facility] Medical History (Updated 08/15/24 @ 09:09 by Maryellen Luque NP) Bilateral knee pain Moderate recurrent major depression Transaminitis Polyarthralgia Bilateral primary osteoarthritis of knee Eczema Fibromyalgia MAGNOLIA on CPAP Mild persistent asthma, uncomplicated KEVYN (generalized anxiety disorder) Morbid obesity due to excess calories Type 2 diabetes mellitus, without long-term current use of insulin Surgical History H/O breast biopsy History of Achilles tendon repair History of hysterectomy Family History Mother Hypertension Hypothyroid Father Sleep apnea Brother Substance use disorder Maternal Aunt Breast CA Maternal Aunt Skin cancer Son No problems noted. Daughter Headache Daughter Hypertension Social History Household Members: Spouse and Family Housing: House Do you presently have visiting nurse or other home services: No Alcohol intake: never Patient Tobacco Use Status: Never used Tobacco e-Cigarette/Vaping Use: Never Used Second Hand Smoke Exposure: No service: No Current occupational status: unemployed Cognitive needs: No Hearing needs: No Vision needs: No Female Reproductive History Menstrual Age of Menarche: 9 Review of Systems Const All systems reviewed & are unremarkable except as noted in HPI and below Physical Exam Vital Signs: Last Vital Signs Temp 97.9 F 08/15/24 08:21 Pulse 86 08/15/24 08:21 BP 138/94 H 08/15/24 08:21 Pulse Ox 97 08/15/24 08:21 Oxygen Delivery Method Room Air 08/15/24 08:21 BMI result Body Mass Index 52.1 Const General: no acute distress; No comfortable Nutritional Appearance: obese morbidly obese Orientation/consciousness: patient oriented x3 Neuro General: patient oriented x3 Extrem Right lower extremity: knee (Pain with ROM) Details: normal to inspection and tenderness; no deformity Left lower extremity: normal to inspection and knee Details: normal to inspection and tenderness Location: of the patella; no swelling, no ecchymosis and no crepitus Assessment & Plan Assessment & Plan (1) Bilateral knee pain: Code(s): M25.561 - Pain in right knee; M25.562 - Pain in left knee Qualifiers: Chronicity: acute Qualified Code(s): M25.561 - Pain in right knee; M25.562 - Pain in left knee Plan: Ordered Meloxicam and Flexeril Ordered PT. Orders: Orders PT Evaluation and Treatment Today M25.561 - Pain in right knee, M25.562 - Pain in left knee Medications: New meloxicam 15 mg PO DAILY 14 tabs 0RF 14 days M25.561 - Pain in right knee, M25.562 - Pain in left knee cyclobenzaprine 10 mg PO BEDTIME 14 tabs 0RF M25.561 - Pain in right knee, M25.562 - Pain in left knee Discontinued naproxen Discontinued Reason: Patient Completed Course 500 mg PO BID 30 days PRN 60 tabs 1RF pain Coding Level of Care Code Est Pt Level 4 (86656) Diagnoses Acute pain of both knees M25.561; M25.562 Chronicity: acute Time Spent (min) 20
== END 2024-08-15 09:21 | disposition home or self-care (01) ==
PROVIDERS: PCP Internal Medicine; Visit Provider Nurse Practitioner Family
DX: M25.561 Pain in right knee (principal); M25.562 Pain in left knee

== ENCOUNTER → 2024-08-15 08:03 | Outpatient (BNVA) | payer OTHER, SELFPAY | PROVIDERS: PCP Internal Medicine; Visit Provider Nurse Practitioner Family | DX: Z13.89 Encounter for screening for other disorder (principal) ==

== ENCOUNTER 2024-08-22 11:30 | Outpatient (REF) | payer OTHER, SELFPAY ==
--- NOTE | ~2024-08-22 | XR_ITS ---
EXAMINATION: XR KNEE, LEFT CLINICAL INFORMATION: M25.562 - Pain in left knee COMPARISON: None available. TECHNIQUE: AP lateral view of the left knee. FINDINGS: There is no joint effusion. There is moderate narrowing of the medial joint space and moderate marginal osteophytes along the medial joint line. Small marginal osteophytes are present along the lateral joint line. XR/XR knee LT 2V IMPRESSION: Moderate osteoarthritis. Electronically signed by: Taran Pace MD 08/22/2024 12:53 PM EDT
== END 2024-08-22 11:31 | disposition home or self-care (01) ==
LOC: HO.XRAY 11:30
PROVIDERS: PCP Internal Medicine; Visit Provider Surgery
DX: R59.0 Localized enlarged lymph nodes (principal); M25.562 Pain in left knee; Z79.899 Other long term (current) drug therapy
CPT/HCPCS: 73560

== ENCOUNTER 2024-08-22 11:30 | Outpatient (AMB) | payer OTHER, SELFPAY ==
--- NOTE | 2024-08-22 11:34 | MHC.OFFVIS ---
Vital Signs 08/22/24 11:45 Height 5 ft 7 in Weight 331 lb BMI 51.8 BP 175/96 H Blood Pressure Location Lt brachial Position Sitting Pulse 91 Intake Visit Reasons: results from CT 08/05 Intake Note: Patient is seen in office for CT scan results, following enlarged lymph nodes of the neck. Pt c/o: here for results, notice lump on the right side of the neck is bigger than last visit CT:08/05/24 Utility System Operator Required: No Accompanied by: Self / Same As Patient Allergies Penicillins Allergy (Mild, Verified 08/22/24 11:45) Rash Shrimps Allergy (Intermediate, Uncoded 08/22/24 11:45) anaphylaxis Medication List - Last Reconciled 08/22/24 by Yosvany Barnett MD albuterol sulfate 90 mcg/actuation 2 puffs inhalation Q6H PRN blood sugar diagnostic (FreeStyle Lite Strips) Use 1 test strip once a day blood-glucose meter (FreeStyle Lite Meter kit) As directed cyclobenzaprine 10 mg PO BEDTIME fluticasone propionate 50 mcg/actuation (Flonase Allergy Relief) 1 spray intranasal BID 30 days lancets (FreeStyle Lancets) Use 1 lancet once a day meloxicam 15 mg PO DAILY 14 days multivitamin 1 tab PO DAILY triamcinolone acetonide 0.5% 1 appl topical BID 2 weeks HPI HPI results from CT 08/05: Details: 48-year-old female here for follow-up for cervical lymphadenopathy. She actually has been followed by Dr. Moctezuma. An ultrasound biopsy had been done last May, and this showed reactive lymphatic tissue. She says that she has felt this masses on her neck for almost a year now. She says she just woke up 1 day feeling this lump on both sides of her neck. She denies any significant increase in size over the past few months She denies difficulty with swallowing. She denies any dental caries or any oral lesions She denies any night sweats or other systemic symptoms She is a known diabetic but says that his blood sugars are well controlled. She is not a smoker. I had sent her for a CAT scan neck and she is here to discuss this. [facility] Medical History Bilateral knee pain Moderate recurrent major depression Transaminitis Polyarthralgia Bilateral primary osteoarthritis of knee Eczema Fibromyalgia MAGNOLIA on CPAP Mild persistent asthma, uncomplicated KEVYN (generalized anxiety disorder) Morbid obesity due to excess calories Type 2 diabetes mellitus, without long-term current use of insulin Surgical History H/O breast biopsy History of Achilles tendon repair History of hysterectomy Family History Mother Hypertension Hypothyroid Father Sleep apnea Brother Substance use disorder Maternal Aunt Breast CA Maternal Aunt Skin cancer Son No problems noted. Daughter Headache Daughter Hypertension Social History Household Members: Spouse and Family Housing: House Do you presently have visiting nurse or other home services: No Alcohol intake: never Patient Tobacco Use Status: Never used Tobacco e-Cigarette/Vaping Use: Never Used Second Hand Smoke Exposure: No service: No Current occupational status: unemployed Cognitive needs: No Hearing needs: No Vision needs: No Female Reproductive History Menstrual Age of Menarche: 9 Review of Systems Const Denies chills and Denies fever(s) Card Denies chest pain, Denies dyspnea and Denies dyspnea on exertion Resp Denies cough, Denies dyspnea and Denies dyspnea on exertion GI Denies hematochezia and Denies change in bowel habits Denies hematuria Musc Reports back pain, Reports arthralgias and Reports limited range of motion Neuro Denies focal weakness and Denies convulsions Psych Denies depression and Denies mood swings Physical Exam Vital Signs: Last Vital Signs Pulse 91 08/22/24 11:45 BP 175/96 H 08/22/24 11:45 BMI result Body Mass Index 51.8 Const General: comfortable and no acute distress Nutritional Appearance: obese Neck Other: Palpable lymph node, large, submandibular area near the midline, about 3 cm; another palpable lymph node in the right submandibular area also about 3 cm is also felt Resp Effort & Inspection: normal respiratory effort Cardio Rate: regular rate Assessment & Plan Assessment & Plan (1) Cervical lymphadenopathy: Code(s): R59.0 - Localized enlarged lymph nodes Category: Surgical Plan: CT/CT soft tissue neck w IV con IMPRESSION: 1. Abnormal bulky superior neck lymphadenopathy, with largest node left level Ib, measuring up to 3.0 x 2.9 x 2.1 cm. 2. There is an irregular mass lesion abutting an enlarged right level 2A lymph node, with the irregular mass measuring approximately 3.2 x 2.2 x 2.4 cm. This may be arising from the anteroinferior right parotid tail. Correlation with lymph node biopsy may be of benefit. 3. Extensive fatty replacement of both parotid glands. 4. There is a midline cyst in the tongue base with peripheral enhancement, consistent with a thyroglossal duct cyst, measuring 1.5 x 1.3 x 1.7 cm. 5. There is a left thyroid nodule measuring 0.9 x 1.1 x 2.5 cm. There are smaller nodules. Correlation with ultrasound may be of benefit. 6. There is no definite mucosal space mass. Her CAT scan shows bulky neck lymphadenopathy with a large level 1B node about 3 cm in widest dimension. A 3.2 cm regular mass abutting an enlarged right level 2 lymph node on the right side that maybe from the parotid. I am going to send her to a had a neck surgeon in view of the above findings. I explained this to her. I will assist her in setting up an appointment I also told her that she can always call the office to follow-up if she has any questions. Coding Level of Care Code Est Pt Level 3 (37225) Diagnoses Cervical lymphadenopathy R59.0
[2024-08-22 11:45] VITALS: BP 175/96; PULSE 91; BMI 51.8
--- OUTSIDE RECORDS SUMMARY | 2024-08-22 12:26 | XMS_ITS | Patient Health Record ---
Author Organization [facility] Address [address] [place] [address] Care Team Providers Care Supervisor Painting Name Role Phone Graciela Riggs M.D. Primary Care Provider Unavailable Gerry Lee Unavailable [phone] Reason For Referral No Information Medications Medication SIG (Take, Route, Frequency, Duration) Notes Start Date End Date Status Extra Depth Orthopedic Shoes (1 Pair) with Customized Heat Molded Multidensity Innersoles (3 Pair) as directed Dx: NIDDM (E11.9), Hammertoe Foot Deformity (M20.41,M20.42), Preulcerative Skin Lesion(s) (L85.1) 05/26/2016 Active Social History Tobacco use other than smoking: Question Answer Notes Are you an other tobacco user? No Problems Problem Type SNOMED Code ICD Code Onset Dates Problem Status W/U Status Risk Notes Problem Plantar fascial fibromatosis (13826906) Plantar fascial fibromatosis (M72.2) Active confirmed Problem Type 2 diabetes mellitus without complications (E11.9) Active confirmed Plan Of Treatment Pending Test Test Name Order Date ,[id number] TENDON SHEATH/LIGAMENT 0 06/16/2016,[id number] TENDON SHEATH/LIGAMENT 0 07/03/2016 Insurance Providers Payer Name Payer Address Payer Phone Subscriber Number Group Number Insured Name Patient Relationship to Insured Coverage Start Date Coverage End Date [facility] [address] [place], [place] [id number] Zenon Harris Spouse - patient is the spouse of the insured Medical (General) History Medical History History ICD Code Arthritis asthma Chicken pox Diabetic - diet controlled Psoriasis/eczema Surgical History Surgery Date(Month/Year) hysterectomy
--- OUTSIDE RECORDS SUMMARY | 2024-08-22 12:26 | XMS_ITS | Continuity of Care Document ---
Author Organization [facility] Address [address] [facility] [address] [place] [address] Insurance Providers Payer Plan Claims Address Claims Phone Policy Number Group Number Relation Employer Guarantor Name Guarantor Guarantor Address Guarantor Phone [facility] HEALTH PLAN [facility] Healt Plan [id number] Self Marlene Allen 1975 [address] [place] [address] [facility] [place] [facility] [facility] [place] [address] [place] [address], [place] [address] tel:[phone] [id number] Self Marlene Allen 1975 [address] [place] [address] Health Safety Net Full Healt h Safet y Net Full [id number] Rene Allen [address] [place] [address] Problems Unknown Problems Results Test Result Date/Time Value / Unit Interp. Refere [facility] Range Comp. Metabolic Panel (14)[3 [id number]] Collected: 01/19/2024 04:06 PM Specimen Received: 01/19/2024 05:00 AM Source: [facility] Glucose [[id number]] 01/20/2024 05:57 AM 110 mg/dL H 70-99 mg/dL BUN [135687] 01/20/2024 05:57 AM 13 mg/dL 6-2 4 mg/dL Creatinine [129964] 01/20/2024 06:00 AM 0.45 mg/dL L 0.57-1.00 mg/dL eGFR [804412] 01/20/2024 06:00 AM 118 mL/min/1.73 >59 mL/min/1.73 BUN/Creatinine Ratio [334269] 01/20/2024 06:00 AM 29 H 9-23 Sodium [069478] 01/20/2024 05:55 AM 143 mmol/L 134-144 mmol/L Potassium [537596] 01/20/2024 05:59 AM 4.5 mmol/L 3.5-5.2 mmol/L Chloride [743357] 01/20/2024 05:55 AM 102 mmol/L 96-106 mmol/L Carbon Dioxide, Total [346818] 01/20/2024 05:57 AM 23 mmol/L 20-29 mmol/L Calcium [870003] 01/20/2024 05:56 AM 9.2 mg/dL 8.7-10.2 mg/dL Protein, Total [007069] 01/20/2024 06:00 AM 7.0 g/dL 6.0-8.5 g/dL Albumin [492245] 01/20/2024 05:57 AM 4.3 g/dL 3.9-4.9 g/dL Globulin, Total [257613] 01/20/2024 06:00 AM 2.7 g/dL 1.5-4.5 g/dL Bilirubin, Total [745206] 01/20/2024 05:58 AM 0.2 mg/dL 0.0-1.2 mg/d L Alkaline Phosphatase [396798] 01/20/2024 06:00 AM 120 IU/L 44-121 IU/L AST (SGOT) [283687] 01/20/2024 05:59 AM 16 IU/L 0-40 IU/L ALT (SGPT) [775335] 01/20/2024 05:58 AM 18 IU/L 0-32 IU/L Lipid Panel[[id number]] Collected: 01/19/2024 04:06 PM Specimen Received: 01/19/2024 05:00 AM Source: [facility] Cholesterol, Total [[id number]] 01/20/2024 07:05 AM 204 mg/dL H 100-199 mg/d L Triglycerides [421858] 01/20/2024 06:07 AM 92 mg/dL 0-149 mg/dL HDL Cholesterol [330888] 01/20/2024 07:05 AM 54 mg/dL >39 mg/dL VLDL Cholesterol Hari [082376] 01/20/2024 07:05 AM 17 mg/dL 5-40 mg/dL LDL Chol Calc ([facility]) [932307] 01/20/2024 07:05 AM 133 mg/dL H 0-99 mg/dL Albumin/Creatinine Ratio,Uri ne[196076] Collected: 01/19/2024 04:06 PM Specimen Received: 01/19/2024 05:00 AM Source: [facility] Creatinine, Urine [[id number]] 01/20/2024 10:28 PM 109.1 mg/dL Not Estab. m g/dL Albumin, Urine [[id number]] 01/20/2024 10:20 PM 10.3 ug/mL Not Estab. ug/mL Alb/Creat Ratio [[id number]] 01/20/2024 10:28 PM 9 mg/g creat 0-29 mg/g creat Normal: 0 - 29 Moderately in creased: 30 - 300 Severely increased: >300 Hemoglobin A1c[415356] Collected: 01/19/2024 04:06 PM Specimen Received: 01/19/2024 05:00 AM Source: [facility] Hemoglobin A1c [[id number]] 01/20/2024 04:13 AM 6.0 % H 4.8-5.6 % . Prediabetes: 5.7 - 6.4 Tanvi betes: >6.4 Glycemic control for adults with diabetes: 7.0 Allergies, adverse reactions, alerts No known allergies and adverse reactions Medications No administered medications reported Vital Signs No vital signs reported Social History No smoking Hx information available
--- OUTSIDE RECORDS SUMMARY | 2024-08-22 12:26 | XMS_ITS | Clinical Summary ---
Author Organization [facility] Address [address] [place] [address] Care Team Providers Care Event Designer Name Role Phone Yanci Higgins MD Primary [...] ( - season) 2023 Influenza Vaccine (#1) 2024 9, 11/03/2017, 11/24/2013, Additional history exists HIB [...] age to complete this topic Care Teams Event Designer Relationship Specialty Start Date End Date Yanci Higgins MD PCP - General Internal Medicine 01/20/19
--- OUTSIDE RECORDS SUMMARY | 2024-08-22 12:26 | XMS_ITS | Continuity of Care Document ---
Author Organization [facility] Address [address] [facility] [address] [place] [address] Insurance Providers Payer Plan Claims Address Claims Phone Policy Number Group Number Relation Employer Guarantor Name Guarantor Guarantor Address Guarantor Phone [facility] HEALTH PLAN [facility] Healt Plan [id number] Self Marlene Allen 1975 [address] [place] [address] [facility] [place] [address] [place] [address] tel:[phone] [id number] 20 Self Marlene Allen 1975 [address] [place] [address] Health Safety Net Full Healt h Safet y Net Full [id number] Rene Allen [address] [place] [address] Problems Unknown Problems Results Test Result Date/Time Value / Unit Interp. Refere [facility] Range Comp. Metabolic Panel (14)[[id number]] Collected: 01/19/2024 04:06 PM Specimen Received: 01/19/2024 05:00 AM Source: [facility] Glucose [[id number]] 01/20/2024 05:57 AM 110 mg/dL H 70-99 mg/dL BUN [910817] 01/20/2024 05:57 AM 13 mg/dL 6-2 4 mg/dL Creatinine [218063] 01/20/2024 06:00 AM 0.45 mg/dL L 0.57-1.00 mg/dL eGFR [847828] 01/20/2024 06:00 AM 118 mL/min/1.73 >59 mL/min/1.73 BUN/Creatinine Ratio [693959] 01/20/2024 06:00 AM 29 H 9-23 Sodium [577588] 01/20/2024 05:55 AM 143 mmol/L 134-144 mmol/L Potassium [861936] 01/20/2024 05:59 AM 4.5 mmol/L 3.5-5.2 mmol/L Chloride [168368] 01/20/2024 05:55 AM 102 mmol/L 96-106 mmol/L Carbon Dioxide, Total [089976] 01/20/2024 05:57 AM 23 mmol/L 20-29 mmol/L Calcium [136269] 01/20/2024 05:56 AM 9.2 mg/dL 8.7-10.2 mg/dL Protein, Total [366476] 01/20/2024 06:00 AM 7.0 g/dL 6.0-8.5 g/dL Albumin [364113] 01/20/2024 05:57 AM 4.3 g/dL 3.9-4.9 g/dL Globulin, Total [759531] 01/20/2024 06:00 AM 2.7 g/dL 1.5-4.5 g/dL Bilirubin, Total [248782] 01/20/2024 05:58 AM 0.2 mg/dL 0.0-1.2 mg/d L Alkaline Phosphatase [069407] 01/20/2024 06:00 AM 120 IU/L 44-121 IU/L AST (SGOT) [818618] 01/20/2024 05:59 AM 16 IU/L 0-40 IU/L ALT (SGPT) [673102] 01/20/2024 05:58 AM 18 IU/L 0-32 IU/L Lipid Panel[[id number]] Collected: 01/19/2024 04:06 PM Specimen Received: 01/19/2024 05:00 AM Source: [facility] Cholesterol, Total [513287] 01/20/2024 07:05 AM 204 mg/dL H 100-199 mg/d L Triglycerides [906452] 01/20/2024 06:07 AM 92 mg/dL 0-149 mg/dL HDL Cholesterol [274425] 01/20/2024 07:05 AM 54 mg/dL >39 mg/dL VLDL Cholesterol Hari [799939] 01/20/2024 07:05 AM 17 mg/dL 5-40 mg/dL LDL Chol Calc ([facility]) [221319] 01/20/2024 07:05 AM 133 mg/dL H 0-99 mg/dL Albumin/Creatinine Ratio,Uri ne[427610] Collected: 01/19/2024 04:06 PM Specimen Received: 01/19/2024 05:00 AM Source: [facility] Creatinine, Urine [[id number]] 01/20/2024 10:28 PM 109.1 mg/dL Not Estab. m g/dL Albumin, Urine [[id number]] 01/20/2024 10:20 PM 10.3 ug/mL Not Estab. ug/mL Alb/Creat Ratio [533319] 01/20/2024 10:28 PM 9 mg/g creat 0-29 mg/g creat Normal: 0 - 29 Moderately in creased: 30 - 300 Severely increased: >300 Hemoglobin A1c[808313] Collected: 01/19/2024 04:06 PM Specimen Received: 01/19/2024 05:00 AM Source: [facility] Hemoglobin A1c [746935] 01/20/2024 04:13 AM 6.0 % H 4.8-5.6 % . Prediabetes: 5.7 - 6.4 Tanvi betes: >6.4 Glycemic control for adults with diabetes: 7.0 Allergies, adverse reactions, alerts No known allergies and adverse reactions Medications No administered medications reported Vital Signs No vital signs reported Social History No smoking Hx information available
--- OUTSIDE RECORDS SUMMARY | 2024-08-22 12:26 | XMS_ITS | Patient Health Record ---
Author Organization [facility] Address [address] [facility] [address] [place] [address] Care Team Providers Care Competitive Intelligence Manager Name Role Phone Lise Fiore Primary Care [...] Problem Status W/U Status Risk Notes Problem [id number] Psoriasis (L40.9) Active confirmed Plan Of Treatment No Information Insurance Providers Payer Name Payer Address Payer Phone Subscriber Number Group Number Insured Name Patient Relationship to Insured Coverage Start Date Coverage End Date [address] [place] [address] [id number] Marlene Allen Self - patient is the [...]
== END 2024-08-22 11:51 | disposition home or self-care (01) ==
LOC: HO.HGS 11:31
PROVIDERS: PCP Internal Medicine; Visit Provider Surgery
DX: R59.0 Localized enlarged lymph nodes (principal)
CPT/HCPCS: 99213

== ENCOUNTER → 2024-08-22 12:04 | Outpatient (BNV) | payer OTHER, SELFPAY | PROVIDERS: PCP Internal Medicine; Visit Provider Radiology Diagnostic Radiology | DX: M17.12 Unilateral primary osteoarthritis, left knee (principal) | CPT/HCPCS: 73560 ==

== ENCOUNTER 2024-11-04 07:57 | Outpatient (REF) | payer OTHER, SELFPAY ==
--- OUTSIDE RECORDS SUMMARY | 2024-11-05 07:58 | XMS_ITS | Patient Health Record ---
Author Organization [facility] Address [address] [facility] [address] [place] [address] Care Team Providers Care Care Transitions Nurse Name Role Phone Lise Fiore Primary Care [...] Problem Status W/U Status Risk Notes Problem Psoriasis (0316545) Psoriasis (L40.9) Active confirmed Plan Of Treatment No Information Insurance Providers Payer Name Payer Address Payer Phone Subscriber Number Group Number Insured Name Patient Relationship to Insured Coverage Start Date Coverage End Date [address] [place] [address] [id number] Marlene Allen Self - patient is the [...]
--- OUTSIDE RECORDS SUMMARY | 2024-11-05 07:58 | XMS_ITS | Clinical Summary ---
Author Organization [facility] Address [address] [place] [address] Care Team Providers Care Library Helper Name Role Phone Yanci Higgins MD Primary [...] (2 - Td or Tdap) 02/24/2021 02/24/2011 Depression Screening 02/17/2024 COVID-19 Vaccine (1 - season) 2024 Influenza Vaccine (#1) 2024 9, 11/03/2017, 11/24/2013, Additional history exists Pneumococcal Vaccine: 50+ Years (1 of 1 - PCV) 2024 Zoster Vaccines (1 of 2) 2024 HIB Vaccines Aged Out No longer eligi [...] age to complete this topic Care Teams Library Helper Relationship Specialty Start Date End Date Yanci Higgins MD PCP - General Internal Medicine 01/20/19
--- OUTSIDE RECORDS SUMMARY | 2024-11-05 07:58 | XMS_ITS | Clinical Summary ---
Author Organization [facility] Address [address] [facility] [address] [place] [address] Phone Care Team Providers Care American Indian Policy Specialist Name Role Phone Yosvany Barnett MD Primary Care Provider +1- [phone] Encounters Date Type Department Care Team Description 10/19/2024 12:59 PM EDT - 10/19/2024 11:59 PM EDT Hospital Encounter [facility] [address] [place] [address] Greg Carver MD Discharge Disposition: Home or Self Care from Last 3 Months Social History Tobacco Use Types Packs/Day Years Used Date Smoking Tobacco: Never Assessed Education Answer Date Recorded Are you interested in more education? Not on lisa e 10/19/2024 Are you concerned about learning? Not on file 10/19/2024 No 10/19/2024 No 10/19/2024 Digital Access Answer Date Recorded No 10/19/2024 No 10/19/2024 Reliable internet access at home? Not on file 10/19/2024 Device with a working camera? Not on file Comments Unknown Sex and Gender Information Value Date Recorded Sex Assigned at Not on file Legal Sex Female 12:55 PM EDT Gender Identity Not on file Sexual Orientation Not on file Plan of Treatment Not on file Medical Devices Not on file Procedures Procedure Name Priority Date/Time Associated Diagnosis Comments OUTSIDE PATHOLOGY 10/28/2024 NON-PUBLIC HEALTH PHYSICIAN CYTOLOGY, NON CSF, NON URINE Routine 10/19/2024 12:00 AM EDT ANATOMIC PATHOLOGY Routine 10/19/2024 12 :00 AM EDT from Last 3 Months Results * Outside Pathology (10/28/2024) us Scanning Interface Provider PATHOLOGY ORDERABLES Final Result * Non-Injection Molding Technician Cytology (10/19/2024 12:00 AM EDT) 10/19/2024 10/19/2024 1:3 9 PM EDT Narrative SEE NARRATIVE - 10/24/2024 11:47 AM EDT [address] [address] Milling Machine Set Up Operator: Max Nicole MD Non Injection Molding Technician Cytology Report FINAL DIAGNOSIS A. RIGHT NECK MASS, ULTRASOUND GUIDED FINE NEEDLE ASPIRATION: SPECIMEN ADEQUACY: Satisfactory for evaluation. INTERPRETATION: NEGATIVE FOR CARCINOMA. Lymphoid material, negative for lymphoma by flow cytometry, see note. Note: No evidence of Hodgkin lymphoma or carcinoma is seen morphologically. No granulomatous inflammation is seen. Flow cytometry is reported as negative for B cell lymphoma in a limited study. If clinical suspicion for lymphoma is high, excisional biopsy is recommended. Electronically Signed Out By: MD Adelina Geiger CT(ASCP) PROCEDURES/ADDENDA ADDENDUM Ordered Date: 10/24/2024 FLOW CYTOMETRY: HEMATOLOGIC NEOPLASIA ASSESSMENT, CASE# [id number] Interpretation: Left neck Soft Tissue: - No significant lymphoid immunophenotypic abnormalities detected, in a limited study (see comment). Comments: A limited panel of markers was performed due to very low cell yield. There are no significant immunophenotypic abnormalities in this limited study. It is of note that non- hematolymphoid neoplasms, Hodgkin lymphoma, some T-cell lymphomas and some large cell lymphomas cannot be totally excluded based solely on flow cytometry analysis. Correlation with available clinical, laboratory, and morphologic data is recommended. Populations Analyzed: Lymphocytes: 77% B-cells: 15.5%, polytypic/polyclonal sIg light chain pattern T-cells: no significant abnormalities of the markers tested CD4:CD8: 6.3 CD45 Negative Events/Debris: 22% No significant reactivity with the markers tested (may represent non-hematolymphoid cells, degenerated cells, debris, unlysed red blood cells, etc.) Morphologic Evaluation A slide was reviewed for manufacturing quality inspector purposes only. Specimen Description Due to low cell count, the lab is unable to provide an accurate cell yield. A limited panel of antibodies was performed. Flow cytometry data needs to be interpreted within the context of all clinical, laboratory, and morphologic information. Reagent(s) Used CD3, CD4, CD5, CD8, CD10, CD19, CD20, CD38, CD45, CD57, kappa, lambda at [employer] CLINICAL HISTORY Patient presents with bilateral neck masses. SPECIMEN SOURCE A: RIGHT NECK MASS, ULTRASOUND GUIDED FINE NEEDLE ASPIRATION GROSS DESCRIPTION A. RIGHT NECK MASS, ULTRASOUND GUIDED FINE NEEDLE ASPIRATION: Received are six (6) spray fixed direct smears and a needle rinse in 30ml CytoLyt preservative labeled with patient name and date of . One (1) ThinPrep slide and one (1) cell block are prepared. Patient Name: CATHI BANGURA : 1975 (Age: 48) Sex: F Institution: [facility] Location: [facility] Date of Collection: 10/19/2024 Date of Reported: 10/24/2024 11:46 Results to: Greg Carver MD us Greg Carver MD CYTOLOGY ORDERABLES Edited Re sult - Final SEE NARRATIVE * Anatomic Pathology (10/19/2024 12:00 AM EDT) 10/19/2024 10/19/2024 1:2 9 PM EDT Narrative SEE NARRATIVE - 10/24/2024 11:32 AM EDT [address] [address] Milling Machine Set Up Operator: Max Nicole MD Surgical Pathology Report FINAL PATHOLOGIC DIAGNOSIS: LYMPH NODE, LEFT NECK, ULTRASOUND-GUIDED CORE BIOPSY: Scant lymphoid tissue (please correlate with concurrent specimen [id number]), see note Note: If clinical suspicion for lymphoma is high, excisional biopsy is recommended. Electronically Signed Out By Beatriz Jett MD CLINICAL HISTORY Bulky superior neck lymphadenopathy. SPECIMENS SUBMITTED: A: SOFT TISSUE, LEFT NECK MASS, CORE BIOPSY GROSS DESCRIPTION SOFT TISSUE, LEFT NECK MASS, CORE BIOPSY: The specimen is received in 2 parts. Received in formalin are multiple irregular to cylindrical jin-pink soft tissue fragments varying in size from 0.1 x 0.1 x 0.1 cm up to 0.5 x 0.1 x 0.1 cm which are entirely submitted in cassettes A1-A2. Received in RPMI media is a 0.4 x 0.1 x 0.1 cm cylindrical jin soft tissue which is entirely submitted for flow cytometric analysis. Grossed by: DREW Cedeño, PA(ASCP) [id number] 10/19/2024 Grossing Staff: [id number] Patient Name: CATHI BANGUAR : 1975 (Age: 48) Sex: F Institution: [facility] Location: [facility] Date of Operation: 10/19/2024 Date of Reported: 10/24/2024 11:32 Results To: Daniel Carver MD Daniel Stauffer MD, GEREMIAS PATHOLOGY ORDERABLES Final Result SEE NARRATIVE from Last 3 Months Insurance O O HMO O O HMO Care Teams American Indian Policy Specialist Relationship Specialty Start Date End Date Yosvany Barnett MD [address] [place] [address] [place] [id number] PCP - General General Surgery 10/19/24 Additional Source Comments The information contained in this document represents components of the legal health record. It is not the complete legal health record.[facility]
--- OUTSIDE RECORDS SUMMARY | 2024-11-05 07:59 | XMS_ITS | Patient Health Record ---
Author Organization [facility] Address [address] [place] [address] Care Team Providers Care Power Technician Name Role Phone Graciela Riggs M.D. Primary Care Provider Unavailable Gerry Lee Unavailable [phone] Reason For Referral No Information Medications Medication [...] Status Risk Notes Problem Plantar fascial fibromatosis (67145623) Plantar fascial fibromatosis (M72.2) Active confirmed Problem Type II diabetes mellitus without complication (784563197) Type 2 diabetes mellitus without complications (E11.9) Active confirmed Plan Of Treatment Pending Test Test Name Order Date ,[id number] TENDON SHEATH/LIGAMENT 0 06/16/2016,[id number] TENDON SHEATH/LIGAMENT 0 07/03/2016 Insurance Providers Payer Name Payer Address Payer Phone Subscriber Number Group Number Insured Name Patient Relationship to Insured Coverage Start Date Coverage End Date [facility] [address] [place] [address] [id number] Zenon Harris Spouse - patient is the spouse of the insured Medical (General) History Medical History History ICD Code Arthritis asthma Chicken pox Diabetic - diet controlled Psoriasis/eczema Surgical History Surgery Date(Month/Year) hysterectomy
== END 2024-11-04 07:58 | disposition home or self-care (01) ==
LOC: HO.HOSX 07:57
PROVIDERS: Visit Provider Physician Assistant
DX: Z13.89 Encounter for screening for other disorder (principal)

== ENCOUNTER 2024-11-14 09:26 | Outpatient (AMB) | payer OTHER, SELFPAY ==
--- NOTE | 2024-11-14 09:38 | AM.OFFWIN_ITS ---
Intake Vital Signs 11/14/24 09:41 Height 5 ft 7 in Weight 326 lb BMI 51.1 BP 126/88 Blood Pressure Location Lt brachial Position Sitting Respiration 16 Pulse 90 Pulse Source Pulse Oximeter Temp 99.2 F Temp Source Oral Pulse Oximetry (%) 95 Oxygen Delivery Method Room Air Intake Visit Reasons: EP-?uti Patient Tobacco Use Status: Never used Tobacco Allergies Penicillins Allergy (Mild, Verified 11/14/24 09:43) Rash Shrimps Allergy (Intermediate, Uncoded 08/22/24 11:45) anaphylaxis HPI HPI Comments History of Present Illness Details History - The patient is a 49-year-old female pr esenting with symptoms suggestive of a urinary tract infection. - Symptoms began over the weekend, with frequent and urgent urination noted since Thursday. - The patient reports a sensation of dis comfort in the lower abdomen and left lower back and a need to urinate immediately after voiding. - There is no history of kidney stones o r hematuria. - The patient denies any fever but repor ts nausea and headache, which she associates with sinus issues. - The patient has a history of Type 2 Di abetes Mellitus, which is currently well-controlled. - She has an allergy to penicillin, whic h causes a rash. - She denies vaginal discharge but does have some itching. - She denies fever, chills, CP, SOB, hem aturia, dysuria, rashes or history of stones. Physical Exam General: Cooperative, healthy appearing, comfortable, no acute distress and well developed Cardiac: Normal S1 and S2. RRR, no M/R/G noted. Respiratory: Normal respiratory effort and able to speak in complete sentences. Clear to auscultation bilaterally. No w/r/r noted. Skin: No rashes or lesions noted. GI: Normal inspection. Normal BS noted. Soft, non-tender, non-distended. No TTP of all 4 quadrants. No guarding or rebound tenderness noted. Back: Negative CVA bilaterally, but reports back pain, no stabbing pain noted. Patient was informed and verbally consented to the use of an ambient scribe for clinic note documentation during this visit. [facility] Medical History Bilateral knee pain Moderate recurrent major depression Transaminitis Polyarthralgia Bilateral primary osteoarthritis of knee Eczema Fibromyalgia MAGNOLIA on CPAP Mild persistent asthma, uncomplicated KEVYN (generalized anxiety disorder) Morbid obesity due to excess calories Type 2 diabetes mellitus, without long-term current use of insulin Surgical History H/O breast biopsy History of Achilles tendon repair History of hysterectomy Family History Mother Hypertension Hypothyroid Father Sleep apnea Brother Substance use disorder Maternal Aunt Breast CA Maternal Aunt Skin cancer Son No problems noted. Daughter Headache Daughter Hypertension Social History Household Members: Spouse and Family Housing: House Do you presently have visiting nurse or other home services: No Alcohol intake: never Patient Tobacco Use Status: Never used Tobacco e-Cigarette/Vaping Use: Never Used Second Hand Smoke Exposure: No service: No Current occupational status: unemployed Cognitive needs: No Hearing needs: No Vision needs: No Female Reproductive History Menstrual Age of Menarche: 9 Review of Systems Const All systems reviewed & are unremarkable except as noted in HPI and below Physical Exam Vital Signs: Last Vital Signs Temp 99.2 F 11/14/24 09:41 Pulse 90 11/14/24 09:41 Resp 16 11/14/24 09:41 BP 126/88 11/14/24 09:41 Pulse Ox 95 11/14/24 09:41 Oxygen Delivery Method Room Air 11/14/24 09:41 BMI result Body Mass Index 51.1 Results AMB Rapid Strep AMB Rapid Strep Cancelled Last Edit by Josse Austin CMA on 11/14/24 10:12 AMB Rapid Strep previously reported as Negative Josse Austin 11/14/24 10:12 CANCELLED this was entered in error, patient did not have strep done today AMB Urinalysis, Automated UA Leukoctes 0 Kenton/uL Last Edit by Josse Austin CMA on 11/14/24 10:13 UA Nitrite Negative Last Edit by Josse Austin CMA on 11/14/24 10:13 UA Urobilinogen 0.2 mg/dL Last Edit by Josse Austin CMA on 11/14/24 10 :13 UA Protein 0 mg/dL Last Edit by Josse Austin CMA on 11/14/24 10:13 UA pH 6.0 Last Edit by Josse Austin CMA on 11/14/24 10:13 UA Blood 0 Manish/uL Last Edit by Josse Austin CMA on 11/14/24 10:13 UA Specific [place] 1.015 Last Edit by Josse Austin CMA on 11/14/24 10:13 UA Ketone Negative Last Edit by Josse Austin CMA on 11/14/24 10:13 UA Bilirubin 1 mg/dL Last Edit by Josse Austin CMA on 11/14/24 10:13 UA Glucose 0 mg/dL Last Edit by Josse Austin CMA on 11/14/24 10:13 Results Reviewed Results Reviewed: Laboratory Last Values Urine pH (Auto) 6.0 11/14/24 10:12 Specific [place] (Auto) 1.015 11/14/24 10:12 Urine Protein (Auto) 0 mg/dL 11/14/24 10:12 Glucose (UA)(Auto) 0 mg/dL 11/14/24 10:12 Urine Ketones (Auto) Negative 11/14/24 10:12 Urine Blood (Auto) 0 Manish/uL 11/14/24 10:12 Urine Nitrite (Auto) Negative 11/14/24 10:12 Urine Bilirubin (Auto) 1 mg/dL 11/14/24 10:12 Urine Urobilinogen (Auto) 0.2 mg/dL 11/14/24 10:12 Leukocyte Esterase (Auto) 0 Kenton/uL 11/14/24 10:12 Strep Scn Rapid Clinic Cancelled 11/14/24 10:05 Assessment & Plan Assessment & Plan (1) Urinary frequency: Code(s): R35.0 - Frequency of micturition Plan Most likely early UTI vs yeast infection vs BV UA 1+siddhartha Plan - Initiate antibiotic therapy for suspected urinary tract infection, avoiding penicillin due to allergy. - Send urine culture to confirm diagnosis and rule out other infections. - Conduct a vaginal swab to check for other possible infections. - will call with the results - will change treatment based on the findings of testing - follow up with PCP Orders: Orders Bacterial Vaginosis Panel Today R30.0 - Dysuria AMB Urinalysis Automated Today Z13.9 - Encounter for screening, unspecified Urine Culture Today N39.0 - Urinary tract infection, site not specified, R30.0 - Dysuria Medications: New sulfamethoxazole-trimethoprim 800-160 mg (Bactrim DS) 1 tab PO Q12H 6 tabs 0RF 3 days Coding Level of Care Code Est Pt Level 4 (81492) Diagnoses Urinary frequency R35.0
[2024-11-14 09:41] VITALS: BP 126/88; PULSE 90; RESP 16; TEMP 37.3; O2SAT 95; BMI 51.1
--- OUTSIDE RECORDS SUMMARY | 2024-11-14 10:13 | XMS_ITS | Clinical Summary ---
Author Organization [facility] ity Address [address] [place] [address] Care Team Providers Care It Communications Manager Name Role Phone Yanci Higgins MD Primary Care Provider [phone] Surgical History Surgery Date Site/Laterality Comments HYSTERECTOMY [...] age to complete this topic Care Teams It Communications Manager Relationship Specialty Start Date End Date Yanci Higgins MD PCP - General Internal Medicine 01/20/19
--- OUTSIDE RECORDS SUMMARY | 2024-11-14 10:13 | XMS_ITS | Clinical Summary ---
Author Organization [facility] Address [address] [facility] [address] [place] [address] Phone Care Team Providers Care Dining Car Server Name Role Phone Yosvany Barnett MD Primary Care Provider [phone] Encounters Date Type Department Care Team Description 10/19/2024 12:59 PM EDT - 10/19/2024 11:59 PM EDT Hospital Encounter [facility] [address] [place] [address] Greg Craver MD Discharge Disposition: Home or Self Care [...] Date/Time Associated Diagnosis Comments OUTSIDE PATHOLOGY 10/28/2024 NON-ASSAYER HELPER CYTOLOGY, NON CSF, NON URINE Routine 10/19/2024 12:00 AM EDT ANATOMIC PATHOLOGY Routine 10/19/2024 12 :00 AM EDT from Last 3 Months Results * Outside Pathology (10/28/2024) us Scanning Interface Provider PATHOLOGY ORDERABLES Final Result * Non-Softball Winder Cytology (10/19/2024 12:00 AM EDT) 10/19/2024 10/19/2024 1:3 9 PM EDT Narrative SEE NARRATIVE - 10/24/2024 11:47 AM EDT [address] [address] Bobbin Drier: Max Nicole MD Non Softball Winder Cytology Report FINAL DIAGNOSIS A. RIGHT NECK [...] 10/24/2024 FLOW CYTOMETRY: HEMATOLOGIC NEOPLASIA ASSESSMENT, CASE# [id number] Interpretation: Left neck Soft Tissue: - No [...] Morphologic Evaluation A slide was reviewed for director quality systems purposes only. Specimen Description Due to low cell count, the lab is unable to provide an accurate cell yield. A limited panel of antibodies was performed. Flow cytometry data needs to be interpreted within the context of all clinical, laboratory, and morphologic information. Reagent(s) Used CD3, CD4, CD5, CD8, CD10, CD19, CD20, CD38, CD45, CD57, kappa, lambda at [employer] CLINICAL HISTORY Patient presents with bilateral [...] : 1975 (Age: 48) Sex: F Institution: [facility] Location: [facility] Date of Collection: 10/19/2024 Date of Reported: 10/24/2024 11:46 Results to: Greg Carver MD us Greg Carver MD CYTOLOGY ORDERABLES Edited Re sult - Final SEE NARRATIVE * Anatomic Pathology (10/19/2024 12:00 AM EDT) 10/19/2024 10/19/2024 1:2 9 PM EDT Narrative SEE NARRATIVE - 10/24/2024 11:32 AM EDT [address] [address] Bobbin Drier: Max Nicole MD Surgical Pathology Report FINAL PATHOLOGIC DIAGNOSIS: LYMPH NODE, LEFT NECK, ULTRASOUND-GUIDED CORE BIOPSY: Scant lymphoid tissue (please correlate with concurrent specimen [id number]), see note Note: If clinical suspicion for [...] 10/19/2024 Grossing Staff: [id number] Patient Name: CATHI BANGURA : 1975 (Age: 48) Sex: F Institution: [facility] Location: [facility] Date of Operation: 10/19/2024 Date of Reported: 10/24/2024 11:32 Results To: Daniel Carver MD Daniel Stauffer MD, GEREMIAS PATHOLOGY ORDERABLES Final Result SEE NARRATIVE from Last 3 Months Insurance O O HMO O O HMO Care Teams Dining Car Server Relationship Specialty Start Date End Date Yosvany Barnett MD [address] [place] [address] [address] [place] [id number] PCP - General General Surgery 10/19/24 Additional Source Comments The information contained in this document represents components of the legal health record. It is not the complete legal health record.[facility]
--- OUTSIDE RECORDS SUMMARY | 2024-11-14 10:13 | XMS_ITS | Patient Health Record ---
Author Organization [facility] Address [address] [facility] [address] [place] [address] Care Team Providers Care Surface To Air Weapons Officer Name Role Phone Lise Fiore Primary Care [...] Status W/U Status Risk Notes Problem Psoriasis (5756779) Psoriasis (L40.9) Active confirmed Plan Of Treatment No Information Insurance Providers Payer Name Payer Address Payer Phone Subscriber Number Group Number Insured Name Patient Relationship to Insured Coverage Start Date Coverage End Date [address] [place] [address] [id number] Marlene Allen Self - patient is the [...]
--- OUTSIDE RECORDS SUMMARY | 2024-11-14 10:14 | XMS_ITS | Patient Health Record ---
Author Organization [facility] Address [address] [place] [address] Care Team Providers Care Regional Service Manager Name Role Phone Graciela Riggs M.D. Primary Care Provider Unavailable Gerry Lee Unavailable [phone] Reason For Referral No Information Medications Medication [...] Status Risk Notes Problem Plantar fascial fibromatosis (66550407) Plantar fascial fibromatosis (M72.2) Active confirmed Problem Type II diabetes mellitus without complication (290408335) Type 2 diabetes mellitus without complications (E11.9) Active confirmed Plan Of Treatment Pending Test Test Name Order Date ,[id number] TENDON SHEATH/LIGAMENT 0 06/16/2016,[id number] TENDON SHEATH/LIGAMENT 0 07/03/2016 Insurance Providers Payer Name Payer Address Payer Phone Subscriber Number Group Number Insured Name Patient Relationship to Insured Coverage Start Date Coverage End Date [facility] [address] [place] [address] [id number] Zenon Harris Spouse - patient is the spouse of the insured Medical (General) History Medical History History ICD Code Arthritis asthma Chicken pox Diabetic - diet controlled Psoriasis/eczema Surgical History Surgery Date(Month/Year) hysterectomy
== END 2024-11-14 10:32 | disposition home or self-care (01) ==
PROVIDERS: PCP Internal Medicine; Visit Provider Physician Assistant Medical
DX: R35.0 Frequency of micturition (principal); Z13.9 Encounter for screening, unspecified

== ENCOUNTER 2024-11-14 09:26 | Outpatient (REF) | payer OTHER, SELFPAY ==
[2024-11-14 15:59] LABS: Bacterial Vaginosis PCR NEGATIVE (Negative); Candida Group PCR NOT DETECTED (Not Detect); Candida glab krusei PCR NOT DETECTED (Not Detect); Trichomonas vaginalis PCR NOT DETECTED (Not Detect)
== END 2024-11-14 09:27 | disposition home or self-care (01) ==
LOC: HO.LAB 09:26
PROVIDERS: PCP Internal Medicine; Visit Provider Physician Assistant Medical
DX: R35.0 Frequency of micturition (principal); R30.0 Dysuria; R11.0 Nausea; Z13.89 Encounter for screening for other disorder; E11.9 Type 2 diabetes mellitus without complications; Z20.2 Contact with and (suspected) exposure to infections with a predominantly sexual mode of transmission; Z88.0 Allergy status to penicillin
CPT/HCPCS: 81003; 81515; 87086; 87880